=== PATIENT | male | born 1935 | race Caucasian/White ===

== ENCOUNTER → 2019-10-15 11:13 | Outpatient (CLI) | payer OTHER, SELFPAY ==
[2019-10-15 12:52] LABS: Hemoglobin A1C% w Est Avg Glu 7.3 % (4.0-6.0)
[2019-10-15 13:29] LABS: Free T3, Triiodothyronine Free 3.44 pg/mL (2.77-5.27); Free T4, Direct Thyroxine 1.31 ng/dL (0.78-2.19)
[2019-10-15 13:43] LABS: Thyroid Stimulating Hormone 1.59 uIU/mL (0.47-4.68)
[2019-10-15 14:38] LABS: Alanine Aminotransferase 33 IU/L (<50); Albumin 4.5 g/dL (3.5-5.0); Albumin Globulin Ratio 1.5 (1.0-2.8); Alkaline Phosphatase 76 U/L (38-126); Aspartate Aminotransferase 42 IU/L (17-59); BUN Creatinine Ratio 21.1 (6-22); Bilirubin Total 1.1 mg/dL (0.2-1.3); Blood Urea Nitrogen 19 mg/dL (9-20); Calcium 9.8 mg/dL (8.4-10.2); Carbon Dioxide 25 mmol/L (22-32); Chloride 99 mmol/L (98-107); Cholesterol 120 mg/dL (140-199); Estimated Glomerular Filt Rate > 60.0 mL/min (>60); Glucose 141 mg/dL (80-110); HDL Cholesterol 23 mg/dL (40-60); HEMOLYSIS < 15 (0-50); LDL Cholesterol Calculated 60 mg/dL (<100); Potassium 4.5 mmol/L (3.4-5.1); Sodium 137 mmol/L (137-145); Total Protein 7.5 g/dL (6.3-8.2); Triglycerides 185 mg/dL (35-150)
[2019-10-15 15:07] LABS: Prostate Specific Antigen 4.59 ng/mL (0.10-4.00)
== END ==
PROVIDERS: PCP Nurse Practitioner; Referring Provider Nurse Practitioner; Visit Provider Nurse Practitioner
DX: Z12.5 Encounter for screening for malignant neoplasm of prostate (principal); E11.69 Type 2 diabetes mellitus with other specified complication; E11.9 Type 2 diabetes mellitus without complications; E78.5 Hyperlipidemia, unspecified; I10 Essential (primary) hypertension; R32 Unspecified urinary incontinence; Z79.899 Other long term (current) drug therapy
CPT/HCPCS: 36415; 80053; 80061; 83036; 84153; 84439; 84443; 84481

== ENCOUNTER 2019-10-20 13:26 | Inpatient (IN) | payer OTHER, SELFPAY ==
[2019-10-20] VITALS (9 sets, daily range): BP systolic 108–144; BP diastolic 58–72; PULSE 78–92; RESP 12–24; TEMP 36.4–36.9; O2SAT 94–99; BMI 26.4
--- NOTE | 2019-10-20 | DI.ECHO.S_ITS ---
[facility] +---------+ : : [address] : : : : [id number] : : : : Phone: [phone] Echocardiogram Report + + :Name: MANSOOR FREEDMAN Study Date: 10/21/2019 Height: 71 in : :[facility] Weight: 190 lb : : Gender: Male BSA: 2.1 m2 : :: 1935 Age: 84 yrs BP: 136/69 mmHg: :Reason For Study: SHORTNESS OF BREATH : :Ordering Physician: Zari : :Hospitalist Performed By: LRF : :Referring: CHELLY SAN : + + Interpretation Summary The left ventricle is normal in size. The ejection fraction is estimated to be 60-65%. In some of the apical views there appears to be distal inferior septum and distal inferior wall hypokinesis. No systolic anterior motion of the mitral valve. The right ventricle is normal in size and function. There is mild aortic regurgitation. Procedure: A two-dimensional transthoracic echocardiogram with color flow and Doppler was performed. The study quality was technically adequate. There is no prior echocardiogram noted for this patient. The patient was in normal sinus rhythm during the exam. Left Ventricle: The left ventricle is normal in size. Left ventricular wall thickness is mildly increased. There is mild asymmetric left ventricular hypertrophy. There is no echo evidence for significant left ventricular outflow tract obstruction. A false chord is noted (normal variant). The ejection fraction is estimated to be 60-65%. In some of the apical views there appears to be distal inferior septum and distal inferior wall hypokinesis. Diastolic parameters suggest a relaxation abnormality of the left ventricle, consistent with probable normal filling pressures. Right Ventricle: The right ventricle is normal in size and function. Atria: Both atria are normal in size. There is no Doppler evidence for an interatrial shunt. The thickening of interatrial septum suggests lipomatous hypertrophy. Mitral Valve: There is mild mitral annular calcification. No systolic anterior motion of the mitral valve. There is no mitral valve stenosis. There is trace mitral regurgitation. Aortic Valve: The aortic valve is trileaflet. The aortic valve opens well. There is mild aortic valve sclerosis. There is no aortic valve stenosis. There is mild aortic regurgitation. Tricuspid Valve: The tricuspid valve is normal in structure and function. Pulmonary artery pressures cannot be estimated because of the lack of a measurable TR jet velocity. There is a trace or physiologic amount of tricuspid regurgitation. Pulmonic Valve: The pulmonic valve is not well seen, but is grossly normal. There is mild pulmonic regurgitation. Great Vessels: The aortic root is normal size. The ascending aorta is at the upper limits of normal in size. The IVC is of normal diameter and collapses greater than 50% with a sniff. This suggests a low right atrial pressure of 3 mm Hg. Pericardium/ Pleura There is no pericardial effusion. MMode/2D Measurements & Calculations LVIDd: 3.8 cm LVOT diam: 2.3 cm LVIDs: 2.4 cm Ao root diam: 3.2 cm FS: 37.4 % asc Aorta Diam: 3.5 cm EPSS: 0.82 cm Ao Arch Diam (Prox Trans): 2.5 cm IVSd: 1.2 cm LVPWd: 1.0 cm LV colvin. diameter/BSA (cm/m^2): 1.9 LV sys. diameter/BSA (cm/m^2): 1.2 LA A2 area: 18.5 cm2 RA long axis: 4.7 cm LA A4 area: 16.4 cm2 RA area: 15.9 cm2 LA length (vol): 4.8 cm RA vol: 45.5 ml LA vol: 53.0 ml RA : 22.0 ml/m2 LA vol index: 25.7 ml/m2 IVC diam: 1.9 cm RVD1 (basal): 2.7 cm RV Mid_phl: 2.6 cm TAPSE: 2.0 cm Doppler Measurements & Calculations Ao V2 max: 113.1 cm/sec LVOT Max Hubert: 88.3 cm/sec Ao V2 mean: 76.6 cm/sec LV V1 max P.1 mmHg Ao max P.1 mmHg LV V1 VTI: 18.3 cm Ao mean P.6 mmHg JAJA(I,D): 3.2 cm2 Ao V2 VTI: 23.1 cm JAJA(V,D): 3.2 cm2 sev ratio: 0.79 JAJA indexed to BSA (cm^2/m^2): 1.6 MV E max hubert: 50.2 cm/sec PA V2 max: 53.6 cm/sec MV A max hubert: 72.2 cm/sec PA V2 mean: 37.4 cm/sec MV E/A: 0.70 PA mean P.64 mmHg Med Peak E' Hubert: 4.4 cm/sec PA Accel Time: 0.06 sec E/E' med: 11.4 Lat Peak E' Hubert: 7.7 cm/sec E/E' lat: 6.5 E/e' average: 8.9 MV dec time: 0.25 sec MV P1/2t: 72.2 msec MV /2t max hubert: 50.1 cm/sec SV(LVOT): 74.4 ml MVA(P12t): 3.0 cm2 Reading Physician:01:16 PM
--- NOTE | 2019-10-20 13:44 | ED.CHESTPAIN ---
HPI - Chest Pain General Chief Complaint: Chest Pain Stated Complaint: BREATHING PROBLEM,PULSE HIGH,SENT BY DOC Time Seen by Provider: 10/20/19 13:38 Source: patient Mode of arrival: Ambulatory Limitations: no limitations History of Present Illness HPI narrative: 84-year-old male. Prior history of coronary artery disease with stent placement here for evaluation for shortness of breath and also chest heaviness. It appears the symptoms have been going on for the past several days. They appear to be intermittent. 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 Also felt like that his pulse was high today. He states that it went from a heart rate of 70 still heart rate of 90s. He is here with his . Has not tried anything for symptoms prior to arrival Related Data Home Medications Medication Instructions Recorded Confirmed B-complex with vitamin C 1 tab PO DAILY 10/02/19 10/20/19 aspirin 81 mg tablet,delayed 81 mg PO DAILY 10/02/19 10/20/19 release atorvastatin 10 mg tablet 10 mg PO DAILY 10/02/19 10/20/19 cholecalciferol (vitamin D3) 25 1,000 unit PO DAILY 10/02/19 10/20/19 mcg (1,000 unit) capsule diphenhydramine HCl 25 mg capsule 25 mg PO BEDTIME 10/02/19 10/20/19 magnesium citrate 125 mg capsule 250 mg PO DAILY 10/02/19 10/20/19 metformin 1,000 mg tablet 1,000 mg PO BID 10/02/19 10/20/19 nitroglycerin 0.4 mg sublingual 0.4 mg SL Q5M PRN 10/02/19 10/20/19 tablet pantoprazole 40 mg tablet,delayed 40 mg PO DAILY 10/02/19 10/20/19 release Previous Rx's Medication Instructions Recorded diph,pertuss(acel),tet vac(PF) 2 0.5 ml IM ONCE #0.5 ml 10/02/19 Lf-(2.5-5-3-5mcg)-5 Lf/0.5 mL IM syringe lisinopril 5 mg tablet 5 mg PO DAILY #30 tab 10/02/19 varicella-zoster gE-AS01B (PF) 50 0.5 ml IM ONCE #1 each 10/02/19 mcg/0.5 mL IM susp, kit Allergies Allergy/AdvReac Type Severity Reaction Status Date / Time No Known Drug Allergies Allergy Verified 10/02/19 11:32 Review of Systems Constitutional Constitutional: Denies fever(s) and Denies headache(s) ENT Ears, Nose, Mouth, and Throat: Denies headache(s) Cardiovascular Cardiovascular: Reports chest pain, Denies diaphoresis, Reports rapid heart rate, Denies leg edema, Denies palpitations, Reports dyspnea and Reports dyspnea on exertion Respiratory Respiratory: Denies cough, Reports dyspnea and Reports dyspnea on exertion Gastrointestinal Gastrointestinal: Denies abdominal pain, Denies nausea and Denies vomiting Genitourinary Genitourinary: Denies dysuria Musculoskeletal Musculoskeletal: Denies myalgias and Denies arthralgias Integumentary/Breasts Skin/Breast: Denies lesions and Denies rash Neurologic Neurologic: Denies behavioral changes and Denies headache(s) Psychiatric Psychiatric: Denies behavioral changes Endocrine Endocrine: Denies palpitations Hematologic/Lymphatic Hematologic/Lymphatic: Denies easy bleeding and Denies easy bruising Patient History Medical History Allergies (Chronic) Chronic cough (Chronic) Coronary artery disease (Acute) Hearing loss (Chronic) Hyperlipidemia associated with type 2 diabetes mellitus (Acute) Hypertension (Acute) Insomnia (Acute) Obesity (BMI 30.0-34.9) (Acute) Shoulder pain (Chronic) Type 2 diabetes mellitus (Acute) Urinary dribbling (Acute) Vision disorder (Chronic) Surgical History (Updated 10/11/19 @ 20:48 by Liz Naidu) Anesthesia (Resolved) H/O heart artery stent (Acute) Status post anal fissurectomy (Resolved) Family History (Updated 10/11/19 @ 20:53 by Liz Naidu) Father Cancer Brother Diabetes mellitus Brother Diabetes mellitus Son Diabetes mellitus Stroke Social History marital status: Smoking Status: Never smoker alcohol intake: never Smoking Status: Never smoker Exam Initial Vital Signs Initial Vital Signs: Vital Signs Temperature 97.6 F 10/20/19 13:47 Pulse Rate 92 H 10/20/19 13:47 Respiratory Rate 18 10/20/19 13:47 Blood Pressure 130/70 10/20/19 13:47 Pulse Oximetry 97 10/20/19 13:47 Const General: cooperative and comfortable Limitations: mental status not altered Resp Effort & Inspection: normal respiratory effort Auscultation: clear to auscultation bilaterally Cardio Rate: regular rate Rhythm: regular rhythm Pulses: radial pulses present GI Inspection: non-distended Palpation: soft Skin Lesions: no lesions Rashes: no rashes Neuro General: alert, awake and oriented x3 Cognition: normal cognition Speech: speech normal Extrem General: normal to inspection and capillary refill normal Psych Appearance: grossly normal and well kempt Scores GCS Evgeny coma scale eye opening: Spontaneous Evgeny coma scale verbal response: Orientated Evgeny coma scale motor response: Obey commands [place] coma scale total score: 15 HEART Score Heart Score history: Moderately Suspicious Heart Score EKG: Normal Heart Score Age: > or = 65 years old Heart Score risk factors: > 3 risk factors or hx of atherosclerotic disease Heart Score troponin: < or = to normal limit Heart Score Total: 5 Course Orders Ordered: ED Orders 10/20/19 13:40 Complete Blood Count AUTO DIFF Stat Comprehensive Metabolic Panel Stat Lipase Stat NT-proBNP (BNP-Adult 18+) Stat Partial Thromboplastin Time Stat Prothrombin Time INR Stat Troponin I Stat 10/20/19 13:45 XR chest 1V Stat EKG-12 Lead Stat Vital Signs Vital signs: Vital Signs - 8 hr 10/20/19 13:47 10/20/19 14:00 Temperature 97.6 F Pulse Rate 92 H 90 Respiratory Rate 18 12 Blood Pressure [Left Arm] 130/70 114/59 L Pulse Oximetry 97 95 MDM - Chest Pain Lab Data Attestation: I reviewed the patient's lab results. Result diagrams: 10/20/19 13:40 10/20/19 13:40 Labs: Lab Results 10/20/19 10/20/19 10/20/19 Range/Units 13:40 13:40 13:40 WBC 9.2 (4.5-11.0) X10^3/uL RBC 5.35 (4.5-5.9) X10^6/uL Hgb 16.2 (13.5-17.5) g/dL Hct 49.2 (41-53) % MCV 92.0 (80-100) fL MCH 30.4 (26-34) PG MCHC 33.0 (30-36) % RDW 13.5 (11.6-14.8) % Plt Count 243 (150-400) X10^3/uL Neut % (Auto) 73.0 (50-75) % Lymph % (Auto) 14.9 L (25-40) % [place] % (Auto) 8.6 (3-14) % Eos % (Auto) 2.8 (2-4) % Baso % (Auto) 0.7 (0-2) % Neut # (Auto) 6700 (7160-6228) /uL Lymph # (Auto) 1400 (1758-7978) /uL [place] # (Auto) 800 (0-900) /uL Eos # (Auto) 300 (0-450) /uL Baso # (Auto) 100 (0-100) /uL PT 11.4 (10.1-12.7) SECONDS INR 1.0 (0.9-1.3) APTT 37 H (26.4-36.2) SECONDS Sodium 140 (137-145) mmol/L Potassium 4.7 (3.4-5.1) mmol/L Chloride 103 (98-107) mmol/L Carbon Dioxide 26 (22-32) mmol/L BUN 23 H (9-20) mg/dL Creatinine 0.90 (0.66-1.25) mg/dL Estimated GFR > 60.0 (>60) mL/min BUN/Creatinine Ratio 25.6 H (6-22) Glucose 150 H (80-110) mg/dL Calcium 9.8 (8.4-10.2) mg/dL Total Bilirubin 0.6 (0.2-1.3) mg/dL AST 30 (17-59) IU/L ALT 29 (<50) IU/L Alkaline Phosphatase 64 (38-126) U/L Troponin I < 0.012 (0.01-0.034) ng/mL NT-Pro-B Natriuret Pep 93 (<450) pg/mL Total Protein 7.3 (6.3-8.2) g/dL Albumin 4.3 (3.5-5.0) g/dL Globulin 3.0 (1.7-4.1) g/dL Albumin/Globulin Ratio 1.4 (1.0-2.8) Lipase 286 (23-300) U/L Imaging Data Chest x-ray: Attestation: I personally reviewed and interpreted this imaging study as follows: My Impression: No acute pathology ECG Data Attestation: I personally reviewed and interpreted this ECG as follows: Prior ECG tracings: not available for review Interpretation: Sinus rhythm Ventricular rate of 92 Normal axis Normal QRS Normal QTC No ST T wave changes MDM Narrative Medical decision making narrative: Heart score 5, EKG is unremarkable, not having symptoms while sitting in the room however patient does admit that when he exerts himself he does become short of breath and does have chest pressure. Has known coronary artery disease. Was given aspirin in addition to the aspirin he took this morning. Did discuss the case with Dr. nair the hospitalist. Will admit for further evaluation treatment. Discussed the admission with the patient. He expressed understanding and agreement. Discharge Plan Departure Patient Disposition: Admitted as Observation Clinical Impression: Dyspnea on exertion Chest pain Qualifiers: Chest pain type: unspecified Qualified Code(s): R07.9 - Chest pain, unspecified
--- NOTE | 2019-10-20 13:45 | DI.RAD.S_ITS ---
PROCEDURE: XR CHEST 1V INDICATIONS: Chest pain TECHNIQUE: One view of the chest was acquired. COMPARISON: None. FINDINGS: Surgical changes and devices: None. Lungs and pleura: Lungs are clear. No pleural effusions or pneumothorax. Mediastinum: Mediastinal contours appear normal. Heart size is normal. Bones and chest wall: No suspicious bony lesions. Overlying soft tissues appear unremarkable. IMPRESSION: No acute cardiopulmonary process is evident. Dictated by: Tristan Araiza M.D. on 10/20/2019 at 13:49 Approved by: Tristan Araiza M.D. on 10/20/2019 at 13:49
[2019-10-20 13:49] LABS: Add Manual Diff / Slide Review NO; Basophils Absolute Auto 100 /uL (0-100); Basophils Percent Auto 0.7 % (0-2); Eosinophils Absolute Auto 300 /uL (0-450); Eosinophils Percent Auto 2.8 % (2-4); Hematocrit 49.2 % (41-53); Hemoglobin 16.2 g/dL (13.5-17.5); Lymphocytes Absolute Auto 1400 /uL (1100-4500); Lymphocytes Percent Auto 14.9 % (25-40); Mean Corpuscular Hemoglobin 30.4 PG (26-34); Monocytes Absolute Auto 800 /uL (0-900); Monocytes Percent Auto 8.6 % (3-14); Neutrophils Absolute Auto 6700 /uL (1500-7000); Platelet Count 243 X10^3/uL (150-400); Red Blood Cell Count 5.35 X10^6/uL (4.5-5.9); Red Cell Distribution Width 13.5 % (11.6-14.8); White Blood Cell Count 9.2 X10^3/uL (4.5-11.0)
[2019-10-20 14:07] LABS: Prothrombin Time 11.4 SECONDS (10.1-12.7)
[2019-10-20 14:10] LABS: PTT Partial Thromboplastin Tim 37 SECONDS (26.4-36.2)
[2019-10-20 14:13] LABS: Alanine Aminotransferase 29 IU/L (<50); Albumin 4.3 g/dL (3.5-5.0); Albumin Globulin Ratio 1.4 (1.0-2.8); Alkaline Phosphatase 64 U/L (38-126); Aspartate Aminotransferase 30 IU/L (17-59); BUN Creatinine Ratio 25.6 (6-22); Bilirubin Total 0.6 mg/dL (0.2-1.3); Blood Urea Nitrogen 23 mg/dL (9-20); Calcium 9.8 mg/dL (8.4-10.2); Carbon Dioxide 26 mmol/L (22-32); Chloride 103 mmol/L (98-107); Estimated Glomerular Filt Rate > 60.0 mL/min (>60); Glucose 150 mg/dL (80-110); Lipase 286 U/L (23-300); Potassium 4.7 mmol/L (3.4-5.1); Sodium 140 mmol/L (137-145); Total Protein 7.3 g/dL (6.3-8.2)
[2019-10-20 14:26] LABS: HEMOLYSIS < 15 (0-50); Troponin I < 0.012 ng/mL (0.01-0.034)
[2019-10-20 14:30] LABS: NT-proBNP (BNP-Adult 18+) 93 pg/mL (<450)
[2019-10-20] MEDS: ASPIRIN 81 MG CHEW TAB 162 MG PO (15:07)
--- NOTE | 2019-10-20 17:23 | P.HP_ITS ---
History of Present Illness History of Present Illness Date Patient Seen: 10/20/19 Chief complaint: BREATHING PROBLEM,PULSE HIGH,SENT BY DOC Narrative: Patient is an 84-year-old male with a history of hypertension, hyperlipidemia, type 2 diabetes, coronary artery disease status post stenting times to 15 years ago who presented to the hospital with a chief complaint of shortness of breath. 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 He and his moved to [facility] from [place], [place] over the past summer. ording to the patient and his they of noted intermittent exertional dyspnea since the summer. He occasionally describes getting chest pressure associated. The symptoms tend to come on when lifting boxes or exerting himself. They last for few minutes are not associated with pain per se although he does get twinges of chest pain like a ?cramp in the chest. The patient was at [employer] on Sunday singing when he developed abrupt onset of shortness of breath. He was somewhat concerned and called his PCP who directed him to the hospital. In the emergency department he had an EKG which was unremarkable, he also had cardiac enzymes which were negative. The patient does describe his angina equivalent which happened 15 years ago. He again was markedly short of breath with diaphoresis. He was placed on a treadmill and ultimately required cardiac stenting. The patient has not had a stress test since that time. He does describe having had a cardiac echo sometime in the past 6 months. The patient denies any orthopnea, no lower extremity edema, no palpitations. He does have a chronic cough. His notes that at times when he gets up he has been dizzy and stumbling which is concerning. The patient denies any diaphoresis or nausea associated with his symptoms. He is admitted to the hospital at this time for evaluation of exertional dyspnea. Patient History Medical History Allergies (Chronic) Chronic cough (Chronic) Coronary artery disease (Acute) Hearing loss (Chronic) Hyperlipidemia associated with type 2 diabetes mellitus (Acute) Hypertension (Acute) Insomnia (Acute) Obesity (BMI 30.0-34.9) (Acute) Shoulder pain (Chronic) Type 2 diabetes mellitus (Acute) Urinary dribbling (Acute) Vision disorder (Chronic) Surgical History Anesthesia (Resolved) H/O heart artery stent (Acute) Status post anal fissurectomy (Resolved) Family & Social History Family History Father Cancer Brother Diabetes mellitus Brother Diabetes mellitus Son Diabetes mellitus Stroke Social History: household members spouse Prior Living Arrangements House Tobacco & Substance use: Smoking Status Never smoker alcohol intake never Meds Home Medications and Allergies Home Medications Medication Instructions Recorded Confirmed Type B-complex with vitamin C 1 tab PO DAILY 10/02/19 10/20/19 History aspirin 81 mg tablet,delayed 81 mg PO DAILY 10/02/19 10/20/19 History release atorvastatin 10 mg tablet 10 mg PO DAILY 10/02/19 10/20/19 History cholecalciferol (vitamin D3) 25 1,000 unit PO DAILY 10/02/19 10/20/19 History mcg (1,000 unit) capsule diph,pertuss(acel),tet vac(PF) 2 0.5 ml IM ONCE #0.5 ml 10/02/19 10/20/19 Rx Lf-(2.5-5-3-5mcg)-5 Lf/0.5 mL IM syringe diphenhydramine HCl 25 mg capsule 25 mg PO BEDTIME 10/02/19 10/20/19 History lisinopril 5 mg tablet 5 mg PO DAILY #30 tab 10/02/19 10/20/19 Rx magnesium citrate 125 mg capsule 250 mg PO DAILY 10/02/19 10/20/19 History metformin 1,000 mg tablet 1,000 mg PO BID 10/02/19 10/20/19 History nitroglycerin 0.4 mg sublingual 0.4 mg SL Q5M PRN 10/02/19 10/20/19 History tablet pantoprazole 40 mg tablet,delayed 40 mg PO DAILY 10/02/19 10/20/19 History release varicella-zoster gE-AS01B (PF) 50 0.5 ml IM ONCE #1 each 10/02/19 10/20/19 Rx mcg/0.5 mL IM susp, kit Allergies Allergy/AdvReac Type Severity Reaction Status Date / Time No Known Drug Allergies Allergy Verified 10/02/19 11:32 Review of Systems Review of Systems Narrative: Chronic cough otherwise review of systems is negative ROS: Yes All systems reviewed with the patient and are negative except as otherwise documented Exam Vital Signs (past 8 hours): - 10/20/19 13:47 10/20/19 14:00 10/20/19 15:00 Temperature 97.6 F Pulse Rate 92 H 90 82 Respiratory Rate 18 12 12 Blood Pressure Blood Pressure [Left Arm] 130/70 114/59 L 122/63 Pulse Oximetry 97 95 97 10/20/19 15:30 10/20/19 16:00 10/20/19 16:50 Temperature 98.4 F Pulse Rate 83 83 78 Respiratory Rate 22 24 18 Blood Pressure 144/72 H Blood Pressure [Left Arm] 121/63 121/62 Pulse Oximetry 94 98 98 10/20/19 16:56 Temperature Pulse Rate 81 Respiratory Rate Blood Pressure 113/58 L Blood Pressure [Left Arm] Pulse Oximetry 99 Oxygen Delivery Method Room Air Oxygen Flow Rate 0 Narrative Exam Narrative: Pleasant elderly male resting comfortably in no obvious distress HEENT: Normocephalic atraumatic, extraocular muscles are intact, oropharynx is clear with moist mucous membranes, neck is supple without adenopathy, there is no appreciable thyromegaly, Lungs: Clear to auscultation Cardiac exam: Regular rate and rhythm normal S1-S2 with a 2/6 systolic ejection murmur, no rubs or gallops Abdomen: Soft nontender nondistended no hepatosplenomegaly noted Extremities: No edema Skin exam: No lesion Neuro exam: Cranial nerves 2-12 are intact, strength is symmetric and equal, sensation is grossly intact, reflexes are brisk and equal, gait is not assessed Psychiatric exam: Patient is awake alert and appropriate, he has no delusions or hallucinations. Objective Labs Result Diagrams: 10/20/19 13:40 10/20/19 13:40 Labs: Laboratory Results - last 24 hr 10/20/19 10/20/19 10/20/19 13:40 13:40 13:40 WBC 9.2 RBC 5.35 Hgb 16.2 Hct 49.2 MCV 92.0 MCH 30.4 MCHC 33.0 RDW 13.5 Plt Count 243 Neut % (Auto) 73.0 Lymph % (Auto) 14.9 L [place] % (Auto) 8.6 Eos % (Auto) 2.8 Baso % (Auto) 0.7 Neut # (Auto) 6700 Lymph # (Auto) 1400 [place] # (Auto) 800 Eos # (Auto) 300 Baso # (Auto) 100 PT 11.4 INR 1.0 APTT 37 H Sodium 140 Potassium 4.7 Chloride 103 Carbon Dioxide 26 BUN 23 H Creatinine 0.90 Estimated GFR > 60.0 BUN/Creatinine Ratio 25.6 H Glucose 150 H Calcium 9.8 Total Bilirubin 0.6 AST 30 ALT 29 Alkaline Phosphatase 64 Troponin I < 0.012 NT-Pro-B Natriuret Pep 93 Total Protein 7.3 Albumin 4.3 Globulin 3.0 Albumin/Globulin Ratio 1.4 Lipase 286 Assessment & Plan Assessment & Plan narrative: Impression 1. 84-year-old male, admitted to the hospital with exertional dyspnea, this is very similar to his prior anginal epis ode that happened before his last stent was placed. Based on his symptomatology it is highly suggestive of unstable angina. The patient had a chest x-ray which was negative. EKG shows sinus rhythm with no acute ST-T changes. And cardiac enzymes initially are negative. The patient does have risk factors to include hypertension and hyperlipidemia, he also has type 2 diabetes. Therefore the pat ient will be brought to the hospital, cardiac enzymes will be obtained, stress testing will be obtained in the morning. Cardiac echo will be obtained as well to evaluate LV function. 2. Hypertension, chronic -patient is on 5 mg of lisinopril, he does describe a chronic cough which may be related to his RICA-inhibitor. Will await echocardiogram results. Will continue RICA-inhibitor for now 3. Type 2 diabetes, -will obtain hemoglobin A1c, hold metformin at this time, continue bolus insulin will resume as an outpatient 4. Hyperlipidemia, chronic -will obtain fasted lipid profile -will continue RICA-inhibitor for 5. DVT prophylaxis Start lovenox 6. GERD: Continue proton 7. Dizziness, confusion at night, discontinue nighttime Benadryl
[2019-10-20] MEDS: ACETAMINOPHEN 325 MG TABLET 650 MG PO (18:55)
[2019-10-20 21:31] LABS: Hemoglobin A1C% w Est Avg Glu 7.4 % (4.0-6.0)
[2019-10-20 21:51] LABS: Troponin I < 0.012 ng/mL (0.01-0.034)
[2019-10-20 21:52] LABS: Cholesterol 125 mg/dL (140-199); HDL Cholesterol 29 mg/dL (40-60); LDL Cholesterol Calculated 58 mg/dL (<100); Triglycerides 190 mg/dL (35-150)
--- NOTE | 2019-10-20 22:39 | PC.NURSE ---
Pt had a little bit of chest cramping sensation, 1.5/10 pain, tolerable. at this time, pt denies chest pain. cont pulse ox, 98%RA. pt independent in room. pt will have stress test tomorrow and echo. will notify on coming RN that day shift needs to call for stress test schedule. pt will be NPO at midnight. Tele NSR. call light in reach.
[2019-10-21 00:20] VITALS: BP 135/72; PULSE 74; RESP 18; TEMP 36.6; O2SAT 96
[2019-10-21 01:36] LABS: Add Manual Diff / Slide Review NO; Basophils Absolute Auto 0 /uL (0-100); Basophils Percent Auto 0.7 % (0-2); Eosinophils Absolute Auto 400 /uL (0-450); Eosinophils Percent Auto 5.4 % (2-4); Hematocrit 45.2 % (41-53); Lymphocytes Absolute Auto 1700 /uL (1100-4500); Lymphocytes Percent Auto 22.8 % (25-40); Mean Corpuscular HGB Conc 33.2 % (30-36); Mean Corpuscular Hemoglobin 30.4 PG (26-34); Mean Corpuscular Volume 91.3 fL (80-100); Monocytes Absolute Auto 800 /uL (0-900); Neutrophils Absolute Auto 4500 /uL (1500-7000); Neutrophils Percent Auto 60.1 % (50-75); Platelet Count 208 X10^3/uL (150-400); Red Blood Cell Count 4.95 X10^6/uL (4.5-5.9); Red Cell Distribution Width 13.3 % (11.6-14.8); White Blood Cell Count 7.5 X10^3/uL (4.5-11.0)
[2019-10-21 01:40] LABS: Blood Urea Nitrogen 23 mg/dL (9-20); Calcium 9.4 mg/dL (8.4-10.2); Carbon Dioxide 32 mmol/L (22-32); Chloride 103 mmol/L (98-107); Estimated Glomerular Filt Rate > 60.0 mL/min (>60); Glucose 133 mg/dL (80-110); HEMOLYSIS < 15 (0-50); Potassium 4.5 mmol/L (3.4-5.1); Sodium 138 mmol/L (137-145)
[2019-10-21 01:51] LABS: Troponin I < 0.012 ng/mL (0.01-0.034)
[2019-10-21 05:30] VITALS: BP 148/82; PULSE 82; RESP 18; TEMP 37.4; O2SAT 98
[2019-10-21 08:00] VITALS: BP 140/73; PULSE 80; RESP 18; TEMP 36.6; O2SAT 97
[2019-10-21] MEDS: NITROGLYCERIN 0.4 MG SL TAB SL (08:24)
[2019-10-21] MEDS: INSULIN ASPART 100 UNIT/ML INSULN PEN SUBCUT ×2 (08:29→12:40)
[2019-10-21] MEDS: ENOXAPARIN 40 MG/0.4 ML SYRINGE SUBCUT ×2 (08:36→14:02)
[2019-10-21] MEDS: DOCUSATE 100 MG CAPSULE PO (08:40)
[2019-10-21] MEDS: ASPIRIN EC 81 MG TABLET PO (08:42)
[2019-10-21] MEDS: ATORVASTATIN 10 MG TABLET PO (08:43)
[2019-10-21] MEDS: PANTOPRAZOLE 40 MG TABLET PO (08:43)
[2019-10-21 08:49] VITALS: BP 136/69
--- NOTE | 2019-10-21 10:58 | CM.DANOTE ---
Addendum entered by April Painter R.N. 10/21/19 13:03: Results of echo in, was consulted with cardiology. Plan is for transfer to [facility] Original Note: DCP: Case received, EMR reviewed met with patient. Introduced self and role. Was able to meet patient, , Leidy, was at bedside. Was able to obtain baseline history and activity information. DCP assessment completed with information currently available. Patient is an 84 year old male who admitted yesterday afternoon to the care of the hospitalist team. [facility] [place]: [place]. Patient came to the hospital via family vehicle secondary to increased shortness of breath. His had noted this when he was in [place]. Patient does have history of coronary artery disease. He is here for cardiac testing. Met with and patient. 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 They moved here to be closer to their daughter. Patient and his have moved over 20 times. He is independent, and alert and oriented. They both reside here in [place]. P: DCP to continue to follow. Patient will be getting an echo today. If he is stable, he should be able to go home. April Painter RN/[employer]
[2019-10-21 12:00] VITALS: BP 132/83; PULSE 77; RESP 18; TEMP 36.7; O2SAT 97
[2019-10-21] MEDS: SODIUM CHLORIDE 0.9% FLUSH 10 ML IV (12:41)
--- NOTE | 2019-10-21 13:23 | P.CONS_ITS ---
History of Present Illness Consult details Date Patient Seen: 10/21/19 Chief complaint: BREATHING PROBLEM,PULSE HIGH,SENT BY DOC Reason for consult: exertional shortness of breath, chest discomfort Narrative: Patient is an 84-year-old male with a history of CAD status post stent to likely mid LAD about 15 years ago as per the patient and his , details not available, done in [place],hypertension, hyperlipidemia, type 2 diabetes, presented to the hospital with a chief complaint of shortness of breath on October 20, 2019.. 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 He and his moved to [employer] from [place], [place] over the past summer. According to the patient and his they of noted intermittent exertional dyspnea since the summer. The patient was at [employer] on Sunday singing when he developed abrupt onset of shortness of breath. he could not finish his singing. He stopped. It was a similar symptoms he had about 15 years ago when he had cor onary artery stent. He was somewhat concerned and called his PCP Next day who directed him to the hospital. Sunday morning he had chest discomfort as well. According to the patient from last couple of months he has been having exertional shortness of breath. when he climbs stairs, he gets clammy and tired as well as chest tightness. Regarding his chest tightness, he was not paying much attention. He is in denial. This morning in the hospital he had chest tightness without any radiation and responded to sublingual nitroglycerin. No fever or productive sputum or PND orthopnea or bleeding or strokelike symptoms or claudicatio. Meds Home Medications and Allergies Home Medications Medication Instructions Recorded Confirmed Type B-complex with vitamin C 1 tab PO DAILY 10/02/19 10/20/19 History aspirin 81 mg tablet,delayed 81 mg PO DAILY 10/02/19 10/20/19 History release atorvastatin 10 mg tablet 10 mg PO DAILY 10/02/19 10/20/19 History cholecalciferol (vitamin D3) 25 1,000 unit PO DAILY 10/02/19 10/20/19 History mcg (1,000 unit) capsule diph,pertuss(acel),tet vac(PF) 2 0.5 ml IM ONCE #0.5 ml 10/02/19 10/20/19 Rx Lf-(2.5-5-3-5mcg)-5 Lf/0.5 mL IM syringe diphenhydramine HCl 25 mg capsule 25 mg PO BEDTIME 10/02/19 10/20/19 History lisinopril 5 mg tablet 5 mg PO DAILY #30 tab 10/02/19 10/20/19 Rx magnesium citrate 125 mg capsule 250 mg PO DAILY 10/02/19 10/20/19 History metformin 1,000 mg tablet 1,000 mg PO BID 10/02/19 10/20/19 History nitroglycerin 0.4 mg sublingual 0.4 mg SL Q5M PRN 10/02/19 10/20/19 History tablet pantoprazole 40 mg tablet,delayed 40 mg PO DAILY 10/02/19 10/20/19 History release varicella-zoster [id number] (PF) 50 0.5 ml IM ONCE #1 each 10/02/19 10/20/19 Rx mcg/0.5 mL IM susp, kit Allergies Allergy/AdvReac Type Severity Reaction Status Date / Time No Known Drug Allergies Allergy Verified 10/02/19 11:32 Review of Systems Review of Systems ROS: Yes All systems reviewed with the patient and are negative except as otherwise documented Exam Vital Signs (past 8 hours): - 10/21/19 05:30 10/21/19 08:00 10/21/19 08:49 Temperature 99.4 F 97.8 F Pulse Rate 82 80 Respiratory Rate 18 18 Blood Pressure 148/82 H 140/73 136/69 Pulse Oximetry 98 97 10/21/19 12:00 Temperature 98.1 F Pulse Rate 77 Respiratory Rate 18 Blood Pressure 132/83 Pulse Oximetry 97 Oxygen Delivery Method Room Air Oxygen Flow Rate 0 Const General: cooperative HENAL Head: contusion and hematoma Eyes Other: No obvious anemia or jaundice Neck Other: no obvious JVD Chest Other: no chest wall tenderness Resp Other: no obvious crepitations or rhonchi Cardio Other: S1-S2 normal, no S3 no S4 soft ejection systolic murmur at the base GI Other: no obvious pulsatile mass or hepatosplenomegaly, abdomen obese Skin Other: no gangrene or ulcer Neuro Other: no obvious motor or sensory deficit Extrem Other: no significant pedal edema Psych Other: alert oriented to time place and person Objective Labs Result Diagrams: 10/21/19 01:18 10/21/19 01:18 Labs: Laboratory Results - last 24 hr 10/20/19 10/20/19 10/20/19 13:40 13:40 13:40 WBC 9.2 RBC 5.35 Hgb 16.2 Hct 49.2 MCV 92.0 MCH 30.4 MCHC 33.0 RDW 13.5 Plt Count 243 Neut % (Auto) 73.0 Lymph % (Auto) 14.9 L [place] % (Auto) 8.6 Eos % (Auto) 2.8 Baso % (Auto) 0.7 Neut # (Auto) 6700 Lymph # (Auto) 1400 [place] # (Auto) 800 Eos # (Auto) 300 Baso # (Auto) 100 PT 11.4 INR 1.0 APTT 37 H Sodium 140 Potassium 4.7 Chloride 103 Carbon Dioxide 26 BUN 23 H Creatinine 0.90 Estimated GFR > 60.0 BUN/Creatinine Ratio 25.6 H Glucose 150 H Hemoglobin A1c Calcium 9.8 Total Bilirubin 0.6 AST 30 ALT 29 Alkaline Phosphatase 64 Troponin I < 0.012 NT-Pro-B Natriuret Pep 93 Total Protein 7.3 Albumin 4.3 Globulin 3.0 Albumin/Globulin Ratio 1.4 Triglycerides Cholesterol LDL Cholesterol, Calc HDL Cholesterol Lipase 286 10/20/19 10/20/19 10/20/19 21:14 21:14 21:14 WBC RBC Hgb Hct MCV MCH MCHC RDW Plt Count Neut % (Auto) Lymph % (Auto) [place] % (Auto) Eos % (Auto) Baso % (Auto) Neut # (Auto) Lymph # (Auto) [place] # (Auto) Eos # (Auto) Baso # (Auto) PT INR APTT Sodium Potassium Chloride Carbon Dioxide BUN Creatinine Estimated GFR BUN/Creatinine Ratio Glucose Hemoglobin A1c 7.4 H Calcium Total Bilirubin AST ALT Alkaline Phosphatase Troponin I < 0.012 NT-Pro-B Natriuret Pep Total Protein Albumin Globulin Albumin/Globulin Ratio Triglycerides 190 H Cholesterol 125 L LDL Cholesterol, Calc 58 HDL Cholesterol 29 L Lipase 10/21/19 10/21/19 10/21/19 01:18 01:18 01:18 WBC 7.5 RBC 4.95 Hgb 15.0 Hct 45.2 MCV 91.3 MCH 30.4 MCHC 33.2 RDW 13.3 Plt Count 208 Neut % (Auto) 60.1 Lymph % (Auto) 22.8 L [place] % (Auto) 11.0 Eos % (Auto) 5.4 H Baso % (Auto) 0.7 Neut # (Auto) 4500 Lymph # (Auto) 1700 [place] # (Auto) 800 Eos # (Auto) 400 Baso # (Auto) 0 PT INR APTT Sodium 138 Potassium 4.5 Chloride 103 Carbon Dioxide 32 BUN 23 H Creatinine 1.00 Estimated GFR > 60.0 BUN/Creatinine Ratio 23.0 H Glucose 133 H Hemoglobin A1c Calcium 9.4 Total Bilirubin AST ALT Alkaline Phosphatase Troponin I < 0.012 NT-Pro-B Natriuret Pep Total Protein Albumin Globulin Albumin/Globulin Ratio Triglycerides Cholesterol LDL Cholesterol, Calc HDL Cholesterol Lipase Assessment & Plan Assessment and plan (1) Unstable angina pectoris: Current visit: Yes Status: Acute (2) Coronary artery disease: Current visit: No Status: Acute (3) Hypertension: Current visit: No Status: Acute (4) Type 2 diabetes mellitus: Current visit: No Status: Acute (5) Dyslipidemia associated with type 2 diabetes mellitus: Current visit: Yes Status: Acute Assessment & Plan narrative: Patient appears to have unstable angina symptoms. He is having recurrent resting chest discomfort. He is having worsening exertional shortness of breath as well as becomes clammy during exertion suggestive of angina equivalent symptoms as well. When he had stent about 15 years ago he had similar symptoms. He is 84 years old with persistent risk factors. The pretest likelihood of worsening and memoryartery disease is high. In the hospital he has ruled out for acute myocardial infarction. Previous EKG showed sinus rhythm with low-voltage complexes in limb leads without any significant ST-T changes. QTC 411 milliseconds. It was done 8:05 AM this morning. On 2-D echo preserved LV function with subtle distal inferior wall and inferior septal hypokinesis without any significant valvular pathology. I had long discussion with the patient and his regarding underlying diagnosis and further workup. Options of stress test versus left heart catheterization discussed. Patient and his decided to undergo left heart catheterization in anticipation of revascularization. Will recommend transferring patient to [facility]. I spoke to my associate Dr. Paul as well as our hospitalist Dr. Grant. I will also recommend patient to be started on anticoagulation along with tolerable doses of beta keisha, high intensity statin and if needed Nitropaste. Dr. Grant will talk to the hospitalist at [facility] and will take care of the transfer. Thanks for the cardiology consult. This note was generated utilizing voice recognition software. While attempts h ave been made to correct mistakes, common errors may occur, including substitution of words that sound phonetically similar to the intended word as well as random substitution errors. Please take this into consideration and use clinical context when necessary.
--- NOTE | 2019-10-21 13:24 | PM.DS.1 ---
History of Present Illness History of Present Illness Chief complaint: BREATHING PROBLEM,PULSE HIGH,SENT BY DOC Narrative: Patient is an 84-year-old male with a history of hypertension, hyperlipidemia, type 2 diabetes, coronary artery disease status post stenting times to 15 years ago who presented to the hospital with a chief complaint of shortness of breath. 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 He and his moved to [facility] from [place], [place] over the past summer. ording to the patient and his they of noted intermittent exertional dyspnea since the summer. He occasionally describes getting chest pressure associated. The symptoms tend to come on when lifting boxes or exerting himself. They last for few minutes are not associated with pain per se although he does get twinges of chest pain like a ?cramp in the chest. The patient was at [employer] on Sunday singing when he developed abrupt onset of shortness of breath. He was somewhat concerned and called his PCP who directed him to the hospital. In the emergency department he had an EKG which was unremarkable, he also had cardiac enzymes which were negative. The patient does describe his angina equivalent which happened 15 years ago. He again was markedly short of breath with diaphoresis. He was placed on a treadmill and ultimately required cardiac stenting. The patient has not had a stress test since that time. He does describe having had a cardiac echo sometime in the past 6 months. The patient denies any orthopnea, no lower extremity edema, no palpitations. He does have a chronic cough. His notes that at times when he gets up he has been dizzy and stumbling which is concerning. The patient denies any diaphoresis or nausea associated with his symptoms. He is admitted to the hospital at this time for evaluation of exertional dyspnea. Discharge Providers Provider Date of admission: 10/20/19 14:52 Discharge Date: 10/21/19 Primary care physician: JENNA Alonso Discharge provider: Ngoc Grant MD Summary Hospital Course Discharge Diagnosis: 1. Unstable angina 2. Hyperlipidemia 3. Hypertension 4 GERD Hospital Course: Patient was admitted to the hospital for evaluation of stable angina. He had no further shortness of breath it however the patient did have some intermittent chest pain at rest. He received 1 sublingual nitroglycerin with improvement of his pain. His cardiac enzymes were negative, repeat EKG was negative. The patient was seen in consultation by Dr. Moreno who recommended transfer to [facility] for cardiac intervention. Patient is currently pain-free denies any chest pain or shortness of breath. Arrangements are underway to be made to transfer him to [facility] for cardiac catheterization Status at Discharge Cognitive/behavioral status at discharge: oriented Functional status at discharge: independent ambulation Overall status at discharge: patient is back to baseline Time Spent with Patient Time spent: Less than 30 minutes Exam Vital Signs (past 8 hours): - 10/21/19 05:30 10/21/19 08:00 10/21/19 08:49 Temperature 99.4 F 97.8 F Pulse Rate 82 80 Respiratory Rate 18 18 Blood Pressure 148/82 H 140/73 136/69 Pulse Oximetry 98 97 10/21/19 12:00 Temperature 98.1 F Pulse Rate 77 Respiratory Rate 18 Blood Pressure 132/83 Pulse Oximetry 97 Oxygen Delivery Method Room Air Oxygen Flow Rate 0 Narrative Exam Narrative: Pleasant gentleman resting comfortably in no obvious distress Lungs: Clear to auscultation Cardiac exam: Regular rate and rhythm normal S1-S2 2/6 systolic ejection murmur Abdomen: Soft nontender nondistended, no hepatosplenomegaly Extremities: No edema Objective Labs Result Diagrams: 10/21/19 01:18 10/21/19 01:18 Labs: Laboratory Results - last 24 hr 10/20/19 10/20/19 10/20/19 13:40 13:40 13:40 WBC 9.2 RBC 5.35 Hgb 16.2 Hct 49.2 MCV 92.0 MCH 30.4 MCHC 33.0 RDW 13.5 Plt Count 243 Neut % (Auto) 73.0 Lymph % (Auto) 14.9 L [place] % (Auto) 8.6 Eos % (Auto) 2.8 Baso % (Auto) 0.7 Neut # (Auto) 6700 Lymph # (Auto) 1400 [place] # (Auto) 800 Eos # (Auto) 300 Baso # (Auto) 100 PT 11.4 INR 1.0 APTT 37 H Sodium 140 Potassium 4.7 Chloride 103 Carbon Dioxide 26 BUN 23 H Creatinine 0.90 Estimated GFR > 60.0 BUN/Creatinine Ratio 25.6 H Glucose 150 H Hemoglobin A1c Calcium 9.8 Total Bilirubin 0.6 AST 30 ALT 29 Alkaline Phosphatase 64 Troponin I < 0.012 NT-Pro-B Natriuret Pep 93 Total Protein 7.3 Albumin 4.3 Globulin 3.0 Albumin/Globulin Ratio 1.4 Triglycerides Cholesterol LDL Cholesterol, Calc HDL Cholesterol Lipase 286 10/20/19 10/20/19 10/20/19 21:14 21:14 21:14 WBC RBC Hgb Hct MCV MCH MCHC RDW Plt Count Neut % (Auto) Lymph % (Auto) [place] % (Auto) Eos % (Auto) Baso % (Auto) Neut # (Auto) Lymph # (Auto) [place] # (Auto) Eos # (Auto) Baso # (Auto) PT INR APTT Sodium Potassium Chloride Carbon Dioxide BUN Creatinine Estimated GFR BUN/Creatinine Ratio Glucose Hemoglobin A1c 7.4 H Calcium Total Bilirubin AST ALT Alkaline Phosphatase Troponin I < 0.012 NT-Pro-B Natriuret Pep Total Protein Albumin Globulin Albumin/Globulin Ratio Triglycerides 190 H Cholesterol 125 L LDL Cholesterol, Calc 58 HDL Cholesterol 29 L Lipase 10/21/19 10/21/19 10/21/19 01:18 01:18 01:18 WBC 7.5 RBC 4.95 Hgb 15.0 Hct 45.2 MCV 91.3 MCH 30.4 MCHC 33.2 RDW 13.3 Plt Count 208 Neut % (Auto) 60.1 Lymph % (Auto) 22.8 L [place] % (Auto) 11.0 Eos % (Auto) 5.4 H Baso % (Auto) 0.7 Neut # (Auto) 4500 Lymph # (Auto) 1700 [place] # (Auto) 800 Eos # (Auto) 400 Baso # (Auto) 0 PT INR APTT Sodium 138 Potassium 4.5 Chloride 103 Carbon Dioxide 32 BUN 23 H Creatinine 1.00 Estimated GFR > 60.0 BUN/Creatinine Ratio 23.0 H Glucose 133 H Hemoglobin A1c Calcium 9.4 Total Bilirubin AST ALT Alkaline Phosphatase Troponin I < 0.012 NT-Pro-B Natriuret Pep Total Protein Albumin Globulin Albumin/Globulin Ratio Triglycerides Cholesterol LDL Cholesterol, Calc HDL Cholesterol Lipase Discharge Plan Discharge Plan Disposition: Xfer Acute Care Hospital Discharge orders & Medications Follow up/Referrals: Yarelis Sidhu ARNP [Primary Care Provider] - Visit Report/Discharge Packet Visit Report Forms: Patient Portal/API, Stroke Signs & Symptoms Discharge Data Primary Care Provider: Yarelis Sidhu Attending Provider: Ngoc Grant Admit Date/Time: 10/20/19 14:52
--- NOTE | 2019-10-21 14:28 | PC.NURSE ---
Discharge: Pt feels ready to d/c home. D/c packet reviewed. Minimal pain, po meds effective. Diet tolerated w/out problems. No new rx. vds w/out diff. Questions answered. Priority load pass given. Pt d/c home via auto w/family.
--- NOTE | 2019-10-21 15:43 | PC.NURSE ---
Cardiac: Episode of chest pressure of a 1-2 when pt seen this am. Ecg obtained and received 1 ntg and the chest pressure resolved. Pain did not radiate anywhere. Tele and ecg were unchenged. made aware. Pt is waiting possible transfer to [facility].
[2019-10-21 15:45] VITALS: BP 118/54; PULSE 81; RESP 18; TEMP 36.4; O2SAT 95
--- NOTE | 2019-10-21 17:18 | PC.NURSE ---
A&OX4. denied any chest pain or SOB. RA 95%. independent in the room. NPO since midnight. pt has an IV on R.FA. tele removed.
== END 2019-10-21 17:17 | disposition short-term general hospital (02) | DRG 303 ==
LOC: ED 14:50 → AC 10-21 08:39
PROVIDERS: Admitting Provider Internal Medicine; Emergency Provider Emergency Medicine; PCP Nurse Practitioner; Referring Provider Emergency Medicine; Visit Provider Internal Medicine
DX: I25.110 Atherosclerotic heart disease of native coronary artery with unstable angina pectoris (principal); I10 Essential (primary) hypertension; K21.9 Gastro-esophageal reflux disease without esophagitis; E78.49 Other hyperlipidemia; E11.9 Type 2 diabetes mellitus without complications; Z79.84 Long term (current) use of oral hypoglycemic drugs
CPT/HCPCS: 36415; 71045; 80048; 80053; 80061; 82962; 83036; 83690; 83880; 84484; 85025; 85610; 85730; 93005; 93306; 94762; 99284; 99285; G0378; J1650

== ENCOUNTER → 2020-02-11 14:21 | Outpatient (CLI) | payer OTHER, SELFPAY ==
[2019-10-20 16:55] VITALS: BMI 26.4
--- NOTE | 2020-02-11 14:23 | DI.RAD.S_ITS ---
PROCEDURE: XR RIBS RT MIN 3V W CXR 1V INDICATIONS: Rib pain after fall TECHNIQUE: 2 views of the right ribs were acquired, along with a single view chest. COMPARISON: [facility], , XR CHEST 1V, 10/20/2019, 13:58. FINDINGS: Surgical changes and devices: None. Bones and chest wall: No acute displaced fractures or dislocations. Possible old lateral right sixth rib fracture. No suspicious bony lesions. Overlying soft tissues appear unremarkable. Lungs and pleura: No pleural effusions or pneumothorax. Lungs appear clear. Mediastinum: Mediastinal contours appear normal. Heart size is normal. IMPRESSION: 1. No acute displaced rib fractures. 2. Suspect old right sixth rib fracture. Dictated by: Santino Shields M.D. on 02/11/2020 at 15:35 Approved by: Santino Shields M.D. on 02/11/2020 at 15:40
== END ==
PROVIDERS: PCP Nurse Practitioner; Referring Provider Nurse Practitioner; Visit Provider Nurse Practitioner
DX: R07.81 Pleurodynia (principal)
CPT/HCPCS: 71101; 71110

== ENCOUNTER → 2020-04-21 12:00 | Outpatient (CLI) | payer OTHER, SELFPAY ==
[2019-10-20 16:55] VITALS: BMI 26.4
--- NOTE | 2020-05-07 17:05 | PM.CARDMON.1 ---
Ladies' [facility] Trimmer Report Referral & Results Date Patient Seen: 04/21/20 Requesting provider: Yarelis Sidhu Indication: Paroxysmal tachycardia Duration of monitoring (days): 7 Diary information: There were 2 patient triggered events and 2 patient diary entries Patient triggered events were associated with (within 45 seconds) sinus rhythm and PVCs. Diary events were associated with sinus rhythm alone Data: Minimum heart rate identified was 71 beats per minute at 02:31 on 04/28/2020 Maximum sinus heart rate was 125 beats per minute at 13:20 on 04/25/2020 Maximum overall heart rate was 187 beats per minute at 20:52 on 04/26/2020 during a 15 beat run of SVT Less than 1% of identified beats were either ventricular or supraventricular ectopic in origin Patient with 8 SVT runs the longest being the fast is which is listed above as 15 beats Impression: Patient with mild supraventricular dysrhythmia as above. Clinical correlation suggested
== END ==
PROVIDERS: PCP Nurse Practitioner; Referring Provider Nurse Practitioner; Visit Provider Nurse Practitioner
DX: I47.9 Paroxysmal tachycardia, unspecified (principal)
CPT/HCPCS: 0296T; 0298T

== ENCOUNTER → 2020-05-11 09:00 | Outpatient (CLI) | payer OTHER, SELFPAY ==
[2019-10-20 16:55] VITALS: BMI 26.4
[2020-05-11 09:09] LABS: Bacteria Urine None Seen; RBC Urine None Seen (0-5/HPF); WBC Urine None Seen (0-5/HPF)
[2020-05-11 09:28] LABS: Appearance Urine UA CLEAR; Bilirubin Urine UA NEGATIVE (NEGATIVE); Color Urine UA YELLOW; Glucose Urine UA 3+ g/dL (Negative); Ketones Urine UA NEGATIVE (NEGATIVE); Leukocyte Esterase Urine UA NEGATIVE (NEGATIVE); Nitrite Urine UA NEGATIVE (Negative); Occult Blood Urine UA TRACE-LYSED (Negative); Protein Urine UA NEGATIVE (Negative); Specific Gravity Urine UA 1.015 (1.000-1.035); Urobilinogen Urine UA 0.2 E.U./dL (0.2)
[2020-05-11 09:32] LABS: Culture Indicated Urine Cult Not Indicated; Urine Comments Microscopic Normal
[2020-05-11 09:35] LABS: Creatinine Urine Random 106.4 mg/dL
[2020-05-11 09:45] LABS: Alanine Aminotransferase 24 IU/L (<50); Albumin Globulin Ratio 1.7 (1.0-2.8); Alkaline Phosphatase 73 U/L (38-126); Aspartate Aminotransferase 23 IU/L (17-59); Bilirubin Total 0.6 mg/dL (0.2-1.3); Blood Urea Nitrogen 21 mg/dL (9-20); Calcium 9.2 mg/dL (8.4-10.2); Carbon Dioxide 26 mmol/L (22-32); Chloride 103 mmol/L (98-107); Cholesterol 117 mg/dL (140-199); Estimated Glomerular Filt Rate > 60.0 mL/min (>60); Globulin 2.4 g/dL (1.7-4.1); Glucose 136 mg/dL (80-110); HDL Cholesterol 34 mg/dL (40-60); HEMOLYSIS < 15 (0-50); LDL Cholesterol Calculated 46 mg/dL (<100); Potassium 4.5 mmol/L (3.4-5.1); Sodium 137 mmol/L (137-145); Total Protein 6.4 g/dL (6.3-8.2); Triglycerides 184 mg/dL (35-150)
[2020-05-11 09:55] LABS: Free T4, Direct Thyroxine 1.27 ng/dL (0.78-2.19)
[2020-05-11 09:58] LABS: Microalbumi Creatinin Ratio Ur 5.6 ug/mg CR (<30); Microalbumin Urine Random < 0.6 mg/dL (0-1.6)
[2020-05-11 10:32] LABS: Prostate Specific Antigen 3.41 ng/mL (0.10-4.00)
== END ==
PROVIDERS: PCP Nurse Practitioner; Referring Provider Specialist; Visit Provider Nurse Practitioner
DX: E11.69 Type 2 diabetes mellitus with other specified complication (principal); E11.9 Type 2 diabetes mellitus without complications; E66.9 Obesity, unspecified; E78.5 Hyperlipidemia, unspecified; G47.00 Insomnia, unspecified; I10 Essential (primary) hypertension; I25.10 Atherosclerotic heart disease of native coronary artery without angina pectoris; Z79.899 Other long term (current) drug therapy; R81 Glycosuria; N13.8 Other obstructive and reflux uropathy; N40.1 Benign prostatic hyperplasia with lower urinary tract symptoms
CPT/HCPCS: 36415; 80053; 80061; 81001; 82043; 82570; 83036; 84153; 84439; 84443

== ENCOUNTER 2020-05-20 23:24 | Emergency (ER) | payer OTHER, SELFPAY ==
[2019-10-20 16:55] VITALS: BMI 26.4
[2020-05-20 23:29] VITALS: BP 126/75; PULSE 111; O2SAT 96
[2020-05-20 23:30] VITALS: BP 126/72; PULSE 105; O2SAT 97
[2020-05-20 23:38] VITALS: BP 126/72; PULSE 101; RESP 19; TEMP 37.1; O2SAT 96; BMI 29.3
--- NOTE | 2020-05-20 23:40 | DI.RAD.S_ITS ---
PROCEDURE: XR CHEST 1V INDICATIONS: palpitations TECHNIQUE: One view of the chest was acquired. COMPARISON: [facility], CR, XR CHEST 1V, 10/20/2019, 13:58. FINDINGS: Surgical changes and devices: None. Lungs and pleura: Lungs are clear. No pleural effusions or pneumothorax. Mediastinum: Mediastinal contours appear normal. Heart size is normal. Bones and chest wall: No suspicious bony lesions. Overlying soft tissues appear unremarkable. IMPRESSION: No acute cardiopulmonary disease process. Dictated by: Amber Tierney MD, PhD on 05/21/2020 at 8:44 Approved by: Amber Tierney MD, PhD on 05/21/2020 at 8:45
[2020-05-20] MEDS: METOPROLOL IR 25 MG TABLET 50 MG PO (23:48)
[2020-05-21] VITALS: BP 98/61; PULSE 97; RESP 17; O2SAT 95
[2020-05-21 00:02] LABS: Add Manual Diff / Slide Review NO; Basophils Absolute Auto 100 /uL (0-100); Basophils Percent Auto 0.6 % (0-2); Eosinophils Absolute Auto 200 /uL (0-450); Eosinophils Percent Auto 2.3 % (2-4); Hematocrit 46.9 % (41-53); Hemoglobin 15.3 g/dL (13.5-17.5); Lymphocytes Absolute Auto 1600 /uL (1100-4500); Lymphocytes Percent Auto 14.8 % (25-40); Mean Corpuscular HGB Conc 32.6 % (30-36); Mean Corpuscular Volume 92.1 fL (80-100); Monocytes Absolute Auto 900 /uL (0-900); Monocytes Percent Auto 8.6 % (3-14); Neutrophils Absolute Auto 7800 /uL (1500-7000); Neutrophils Percent Auto 73.7 % (50-75); Platelet Count 234 X10^3/uL (150-400); Red Cell Distribution Width 13.9 % (11.6-14.8); White Blood Cell Count 10.5 X10^3/uL (4.5-11.0)
[2020-05-21 00:11] LABS: Alanine Aminotransferase 23 IU/L (<50); Albumin 3.8 g/dL (3.5-5.0); Albumin Globulin Ratio 1.5 (1.0-2.8); Alkaline Phosphatase 69 U/L (38-126); Aspartate Aminotransferase 28 IU/L (17-59); BUN Creatinine Ratio 22.9 (6-22); Bilirubin Total 0.5 mg/dL (0.2-1.3); Blood Urea Nitrogen 25 mg/dL (9-20); Calcium 9.2 mg/dL (8.4-10.2); Carbon Dioxide 23 mmol/L (22-32); Chloride 107 mmol/L (98-107); Estimated Glomerular Filt Rate > 60.0 mL/min (>60); Globulin 2.6 g/dL (1.7-4.1); Glucose 169 mg/dL (80-110); HEMOLYSIS 29 (0-50); Potassium 4.3 mmol/L (3.4-5.1); Sodium 138 mmol/L (137-145); Total Protein 6.4 g/dL (6.3-8.2)
[2020-05-21 00:15] VITALS: BP 109/60; PULSE 93; O2SAT 94
[2020-05-21 00:23] LABS: NT-proBNP (BNP-Adult 18+) 215 pg/mL (<450); Troponin I < 0.012 ng/mL (0.01-0.034)
--- NOTE | 2020-05-21 00:28 | ED_ITS ---
HPI - Arrhythmia/Palpitations General Chief Complaint: Arrhythmia/Palpitations Stated Complaint: states he is in afib Time Seen by Provider: 05/20/20 23:30 Source: patient and family Mode of arrival: Ambulatory Limitations: no limitations History of Present Illness HPI narrative: 85-year-old gentleman with the history of [place] post stent placement, hypertension, hyperlipidemia, type 2 diabetes and recent elevated hea rt rate and palpitations presents with increased concern for palpitations and heart rate intermittently in the 120-140 range through the course of the day. He describes no fever, cough, chills, chest pain, shortness of breath, orthopnea, abdominal pain, diarrhea, vomiting, lower extremity edema. He notes that the palpitations are associated with a fluttering feeling in his throat but no dyspnea, diaphoresis or specific chest pain. Last week he had a youth nutritional monitor on and has not had results back from that study. He is currently on metoprolol 25 mg b.i.d.. Was seen by his primary care physician Dr. Sidhu on April 06 with similar complaints. Related Data Home Medications Medication Instructions Recorded Confirmed B-complex with vitamin C 1 tab PO DAILY 10/02/19 05/18/20 aspirin 81 mg tablet,delayed 81 mg PO DAILY 10/02/19 05/18/20 release cholecalciferol (vitamin D3) 25 1,000 unit PO DAILY 10/02/19 05/18/20 mcg (1,000 unit) capsule magnesium citrate 125 mg capsule 250 mg PO DAILY 10/02/19 05/18/20 metformin 1,000 mg tablet 1,000 mg PO BID 10/02/19 05/18/20 nitroglycerin 0.4 mg sublingual 0.4 mg SL Q5M PRN 10/02/19 05/18/20 tablet atorvastatin 40 mg tablet 40 mg PO QPM 10/28/19 05/18/20 calcium carbonate-vitamin D3 250 1 tab PO DAILY 10/28/19 05/18/20 mg-125 unit tablet fluticasone propionate 50 1 spray NASAL DAILY 10/28/19 05/18/20 mcg/actuation nasal spray,suspension vitamin b12 See Rx Instructions .ROUTE .COMPLEX 10/28/19 05/18/20 empagliflozin 10 mg tablet 10 mg PO QAM 11/27/19 05/18/20 metoprolol tartrate 25 mg tablet 25 mg PO BID tab 02/11/20 05/18/20 Previous Rx's Medication Instructions Recorded fexofenadine 180 mg tablet 180 mg PO DAILY #90 tab 10/28/19 clopidogrel 75 mg tablet 75 mg PO DAILY #14 tab 11/19/19 baclofen 10 mg tablet 10 mg PO BID PRN #30 tab 02/11/20 alfuzosin 10 mg tablet,extended 10 mg PO DAILY #90 tab 03/29/20 release 24 hr Allergies Allergy/AdvReac Type Severity Reaction Status Date / Time lisinopril AdvReac Intermediate cough Verified 05/18/20 11:30 atorvastatin AdvReac Verified 05/18/20 11:30 Review of Systems Review of Systems Narrative: Remainder of review of systems including constitutional, ENT, cardiovascular, respiratory, GI, , musculoskeletal, skin, neurologic and psychiatric systems reviewed and are unremarkable except as noted in HPI. Patient History Medical History Allergies (Chronic) Aspirin long-term use (Acute) Balance problem (Acute) BPH (benign prostatic hyperplasia) (Acute) BPH loc w urin obs/LUTS (Acute) Chronic cough (Chronic) Coronary artery disease (Chronic) Diverticular disease (Acute) Erectile dysfunction (Acute) Glucose found in urine on examination (Acute) Hearing loss (Chronic) Heart attack (Acute) High prostate specific antigen (PSA) (Acute) History of elevated PSA (Acute) Hyperlipidemia associated with type 2 diabetes mellitus (Acute) Hypertension (Chronic) Insomnia (Acute) Obesity (BMI 30.0-34.9) (Chronic) Other [place] [facility] (current[facility] drug therapy (Acute) Shoulder pain (Chronic) Tachycardia, paroxysmal (Acute) Type 2 diabetes mellitus (Chronic) Urinary dribbling (Acute) Vision disorder (Chronic) Surgical History Anesthesia (Resolved) H/O heart artery stent (Acute) S/P PTCA (percutaneous transluminal coronary angioplasty) (Acute) Status post anal fissurectomy (Resolved) Family History Father Cancer Brother Diabetes mellitus Brother Diabetes mellitus Son Diabetes mellitus Stroke Social History marital status: household members: spouse Smoking Status: Never smoker alcohol intake: never Smoking Status: Never smoker Substance Use Type: does not use Exam Narrative Exam Narrative: General: Healthy appearing, in no acute distress. Able to give a complete and coherent history. Well-nourished well-developed HEENT: Moist mucous membranes, normal sclera with reactive pupils, Neck: No JVD, supple Respiratory: Lungs are clear to auscultation, no wheezing no rales no rhonchi. Full and symmetrical air movement Cardiac: Regular rate and rhythm with mild tachycardia in the 110 range, no murmurs no bruits Abdomen: Soft nontender good bowel tones, no flank pain Skin: Warm and dry, no rashes Neurologic: Grossly neurologically intact with no obvious asymmetries or a bnormalities Extremities: No trauma, well perfused, no lower extremity edema Psych: Cooperative, appropriate insight and affect Initial Vital Signs Initial Vital Signs: Vital Signs Pulse Rate 111 H 05/20/20 23:29 Blood Pressure 126/75 05/20/20 23:29 Pulse Oximetry 96 05/20/20 23:29 Course Orders Ordered: ED Orders 05/20/20 23:40 XR chest 1V Stat Urinalysis and Microscopic Stat 05/20/20 23:45 Complete Blood Count AUTO DIFF Stat Comprehensive Metabolic Panel Stat D Dimer Stat Magnesium Stat NT-proBNP (BNP-Adult 18+) Stat Thyroid Stimulating Hormone Stat Troponin I Stat Discontinued Medications Metoprolol Tartrate (Lopressor) 50 mg PO NOW ONE Stop: 05/20/20 23:40 Last Admin: 05/20/20 23:48 Dose: 50 mg Documented by: AC Vital Signs Vital signs: Vital Signs - 8 hr 05/20/20 23:29 05/20/20 23:30 05/20/20 23:38 Temperature 98.8 F Pulse Rate 111 H 105 H 101 H Respiratory Rate 19 Blood Pressure 126/75 126/72 126/72 Pulse Oximetry 96 97 96 05/21/20 00:00 05/21/20 00:15 05/21/20 00:30 Temperature Pulse Rate 97 H 93 H 93 H Respiratory Rate 17 17 Blood Pressure 98/61 109/60 109/65 Pulse Oximetry 95 94 94 05/21/20 00:45 Temperature Pulse Rate 87 Respiratory Rate 17 Blood Pressure 98/58 L Pulse Oximetry 95 MDM - Arrhythmia/Palpitations Medical Records Attestation: I reviewed the patient's medical records. Lab Data Attestation: I reviewed the patient's lab results. Result diagrams: 05/20/20 23:45 05/20/20 23:45 Labs: Lab Results 05/20/20 05/20/20 05/20/20 Range/Units 23:45 23:45 23:45 WBC 10.5 (4.5-11.0) X10^3/uL RBC 5.10 (4.5-5.9) X10^6/uL Hgb 15.3 (13.5-17.5) g/dL Hct 46.9 (41-53) % MCV 92.1 (80-100) fL MCH 30.0 (26-34) PG MCHC 32.6 (30-36) % RDW 13.9 (11.6-14.8) % Plt Count 234 (150-400) X10^3/uL Neut % (Auto) 73.7 (50-75) % Lymph % (Auto) 14.8 L (25-40) % [place] % (Auto) 8.6 (3-14) % Eos % (Auto) 2.3 (2-4) % Baso % (Auto) 0.6 (0-2) % Neut # (Auto) 7800 H (8260-0957) /uL Lymph # (Auto) 1600 (1575-4887) /uL [place] # (Auto) 900 (0-900) /uL Eos # (Auto) 200 (0-450) /uL Baso # (Auto) 100 (0-100) /uL D-Dimer < 200 (<230) ng/mL Sodium 138 (137-145) mmol/L Potassium 4.3 (3.4-5.1) mmol/L Chloride 107 (98-107) mmol/L Carbon Dioxide 23 (22-32) mmol/L BUN 25 H (9-20) mg/dL Creatinine 1.09 (0.66-1.25) mg/dL Estimated GFR > 60.0 (>60) mL/min BUN/Creatinine Ratio 22.9 H (6-22) Glucose 169 H (80-110) mg/dL Calcium 9.2 (8.4-10.2) mg/dL Magnesium (1.6-2.3) mg/dL Total Bilirubin 0.5 (0.2-1.3) mg/dL AST 28 (17-59) IU/L ALT 23 (<50) IU/L Alkaline Phosphatase 69 (38-126) U/L Troponin I (0.01-0.034) ng/mL NT-Pro-B Natriuret Pep (<450) pg/mL Total Protein 6.4 (6.3-8.2) g/dL Albumin 3.8 (3.5-5.0) g/dL Globulin 2.6 (1.7-4.1) g/dL Albumin/Globulin Ratio 1.5 (1.0-2.8) 05/20/20 Range/Units 23:45 WBC (4.5-11.0) X10^3/uL RBC (4.5-5.9) X10^6/uL Hgb (13.5-17.5) g/dL Hct (41-53) % MCV (80-100) fL MCH (26-34) PG MCHC (30-36) % RDW (11.6-14.8) % Plt Count (150-400) X10^3/uL Neut % (Auto) (50-75) % Lymph % (Auto) (25-40) % [place] % (Auto) (3-14) % Eos % (Auto) (2-4) % Baso % (Auto) (0-2) % Neut # (Auto) (9196-3315) /uL Lymph # (Auto) (3213-9814) /uL [place] # (Auto) (0-900) /uL Eos # (Auto) (0-450) /uL Baso # (Auto) (0-100) /uL D-Dimer (<230) ng/mL Sodium (137-145) mmol/L Potassium (3.4-5.1) mmol/L Chloride (98-107) mmol/L Carbon Dioxide (22-32) mmol/L BUN (9-20) mg/dL Creatinine (0.66-1.25) mg/dL Estimated GFR (>60) mL/min BUN/Creatinine Ratio (6-22) Glucose (80-110) mg/dL Calcium (8.4-10.2) mg/dL Magnesium 2.0 (1.6-2.3) mg/dL Total Bilirubin (0.2-1.3) mg/dL AST (17-59) IU/L ALT (<50) IU/L Alkaline Phosphatase (38-126) U/L Troponin I < 0.012 (0.01-0.034) ng/mL NT-Pro-B Natriuret Pep 215 (<450) pg/mL Total Protein (6.3-8.2) g/dL Albumin (3.5-5.0) g/dL Globulin (1.7-4.1) g/dL Albumin/Globulin Ratio (1.0-2.8) Imaging Data Chest x-ray: Attestation: I personally reviewed and interpreted this imaging study as follows: My Impression: No acute changes. Similar to comparison chest x-ray ECG Data Attestation: I personally reviewed and interpreted this ECG as follows: Interpretation: Sinus rhythm at a rate of 101. Normal axis, normal intervals No acute ischemic changes MDM Narrative Medical decision making narrative: 85-year-old gentleman comes in with complaints of palpitations and a sense of shakiness and unease but no dyspnea diaphoresis or actual chest pain with the episodes. They last minutes only. They have been worse over the course of the day. He has been checking blood pressure and heart rate and was finding heart rates in the 120-140 range. In using his wrist cuff to compare his monitor with our telemetry monitors the numbers are actually quite desperate. His blood pressure is significantly lower than our blood pressure cuff is getting and his heart rate is higher. Suggested that he replaced the battery in the heart rate monitor and reviewed how to check his own pulse to correlate actual pulse reading with the number the monitor is giving him. On arrival he was given 50 mg of oral metoprolol, he was due for his usual dose of 25, and his heart rate has continued to trend down and he is feeling well. Labs are reviewed no evidence of acute coronary syndrome electrolyte abnormalities, infection, pulmonary embolism, hyperthyroidism or other explanation for his tachycardia. Will ask him to increase his metoprolol from 25 b.i.d. to 25 in the morning 50 at night and follow-up with Dr. sidhu later next week Discharge Plan Departure Patient Disposition: Home Clinical Impression: Tachycardia Instructions: Arrhythmias Activity Restrictions/Additional Instructions: Thank you for coming in today Your workup today was very reassuring. You were given an extra 25 mg of metoprolol this evening to help with that your heart rate. Your blood work does not suggest infection, acute heart attack or other findings to explain the rapid heart rate. Your chest x-ray is normal I would recommend that you try replacing the batteries in your wrist blood pressure cuff as the readings are getting from that monitor are significantly different than and simultaneous readings from our telemetry and blood pressure monitors in the emergency department. I am going to suggest that we increased her metoprolol slightly. You currently take 25 mg morning and night. Please increase this to 25 mg in the morning and 50 mg (2 pills) at night After an ER visit and medication change it makes sense to follow-up with your [facility] physician. Please call Dr. Sidhu's office in asked to schedule an ER visit follow-up for later next week. If you have recurrent episodes of palpitations, sweating, shortness of breath o r other symptoms that concern you please feel free to return to the emergency room and I am happy to re-evaluate. Prescriptions: No Action clopidogrel [Plavix] 75 mg tablet 75 mg PO DAILY Qty: 14 RF: 0 Jardiance 10 mg tablet 10 mg PO QAM RF: 0 atorvastatin 40 mg tablet 40 mg PO QPM RF: 0 fexofenadine [Wilma Allergy] 180 mg tablet 180 mg PO DAILY Qty: 90 RF: 0 fluticasone propionate [Allergy Relief (fluticasone)] 50 mcg/actuation spray,suspension 1 spray NASAL DAILY RF: 0 calcium carbonate-vitamin D3 [[place] Calcium-Vit D3] 250-125 mg-unit tablet 1 tab PO DAILY RF: 0 vitamin b12 See Rx Instructions .ROUTE .COMPLEX RF: 0 B-complex with vitamin C [Super B Complex-Vitamin C] Tablet 1 tab PO DAILY RF: 0 magnesium citrate 125 mg capsule 250 mg PO DAILY RF: 0 cholecalciferol (vitamin D3) 1,000 unit capsule 1,000 unit PO DAILY RF: 0 aspirin 81 mg tablet,delayed release (DR/EC) 81 mg PO DAILY RF: 0 Hold Instructions: while on ketorolac metformin 1,000 mg tablet 1,000 mg PO BID RF: 0 nitroglycerin 0.4 mg tablet, sublingual 0.4 mg SL Q5M PRN (Reason: Chest Pain) RF: 0 metoprolol tartrate 25 mg tablet 25 mg PO BID RF: 0 baclofen 10 mg tablet 10 mg PO BID PRN (Reason: back spasms) Qty: 30 RF: 1 alfuzosin 10 mg tablet extended release 24 hr 10 mg PO DAILY Qty: 90 RF: 3 Referrals: Yarelis Sidhu ARNP [Primary Care Provider] -
[2020-05-21 00:30] VITALS: BP 109/65; PULSE 93; RESP 17; O2SAT 94
[2020-05-21 00:32] LABS: D Dimer < 200 ng/mL (<230)
[2020-05-21 00:45] VITALS: BP 98/58; PULSE 87; RESP 17; O2SAT 95
[2020-05-21 01:00] VITALS: BP 104/62; PULSE 85; RESP 21; O2SAT 95
== END 2020-05-21 01:44 | disposition home or self-care (01) ==
PROVIDERS: Emergency Provider Emergency Medicine; PCP Nurse Practitioner
DX: R00.0 Tachycardia, unspecified (principal); Z95.5 Presence of coronary angioplasty implant and graft; I10 Essential (primary) hypertension; E78.5 Hyperlipidemia, unspecified; E11.9 Type 2 diabetes mellitus without complications
CPT/HCPCS: 36415; 71045; 80053; 83735; 83880; 84443; 84484; 85025; 85379; 93005; 99284

== ENCOUNTER → 2020-09-16 11:28 | Outpatient (CLI) | payer OTHER, SELFPAY ==
[2019-10-20 16:55] VITALS: BMI 26.4
[2020-09-16 13:06] LABS: Hemoglobin A1C% w Est Avg Glu 6.8 % (4.0-6.0)
[2020-09-16 13:19] LABS: Alanine Aminotransferase 28 IU/L (<50); Albumin 3.8 g/dL (3.5-5.0); Albumin Globulin Ratio 1.5 (1.0-2.8); Alkaline Phosphatase 77 U/L (38-126); Aspartate Aminotransferase 25 IU/L (17-59); BUN Creatinine Ratio 19.5 (6-22); Bilirubin Total 0.9 mg/dL (0.2-1.3); Blood Urea Nitrogen 16 mg/dL (9-20); Calcium 9.1 mg/dL (8.4-10.2); Carbon Dioxide 25 mmol/L (22-32); Chloride 106 mmol/L (98-107); Cholesterol 92 mg/dL (140-199); Estimated Glomerular Filt Rate > 60.0 mL/min (>60); Globulin 2.5 g/dL (1.7-4.1); Glucose 130 mg/dL (80-110); HDL Cholesterol 28 mg/dL (40-60); HEMOLYSIS < 15 (0-50); LDL Cholesterol Calculated 36 mg/dL (<100); Potassium 4.2 mmol/L (3.4-5.1); Sodium 136 mmol/L (137-145); Total Protein 6.3 g/dL (6.3-8.2); Triglycerides 138 mg/dL (35-150)
== END ==
PROVIDERS: PCP Nurse Practitioner; Referring Provider Internal Medicine Cardiovascular Disease; Visit Provider Internal Medicine Cardiovascular Disease
DX: I25.10 Atherosclerotic heart disease of native coronary artery without angina pectoris (principal); E11.9 Type 2 diabetes mellitus without complications
CPT/HCPCS: 36415; 80053; 80061; 83036

== ENCOUNTER 2020-11-09 17:57 | Inpatient (IN) | payer OTHER, SELFPAY ==
[2020-10-20 12:30] VITALS: BMI 26.4
[2020-11-09 18:03] VITALS: BP 138/61; PULSE 72; RESP 20; TEMP 36.6; O2SAT 99
--- NOTE | 2020-11-09 18:08 | DI.CT.S_ITS ---
PROCEDURE: CT STROKE INDICATIONS: facial droop 1 week ago, NON-TPA CANDIDATE TECHNIQUE: Noncontrast 4.5 mm thick angled axial sections acquired from the foramen magnum to the vertex, with coronal reformats. For radiation dose reduction, the following was used: automated exposure control, adjustment of mA and/or kV according to patient size. COMPARISON: None. FINDINGS: Image quality: Excellent. CSF spaces: Basal cisterns are patent. No extra-axial fluid collections. The ventricles are symmetric in size and shape. Brain: No intracranial bleeds or masses. There is cerebral volume loss for age, with resultant ventricular and sulcal prominence. There are periventricular and deep white matter chronic small vessel ischemic changes. There is intracranial internal carotid artery atherosclerosis. Skull and face: Calvarium and visualized facial bones appear intact, without suspicious lesions. Sinuses: Visualized sinuses and mastoids are clear. IMPRESSION: No acute intracranial process. This study fulfills neurological imaging criteria for inclusion or exclusion of acute stroke therapies based on available published neurological guidelines. Dictated by: Orion De La Cruz M.D. on 11/09/2020 at 18:49 Approved by: Orion De La Cruz M.D. on 11/09/2020 at 18:51
--- NOTE | 2020-11-09 18:09 | DI.CT.S_ITS ---
PROCEDURE: CT ANGIO HEAD AND NECK INDICATIONS: facial droop 1 week ago TECHNIQUE: After the administration of intravenous contrast, 1 mm thick sections acquired from the aortic arch through the [place] of [place]. Post-contrast 4.5 mm thick sections then re-acquired from the foramen magnum to the vertex. 3-dimensional gfyvxuc-uslaoxkxm-vjveevbgwa (MIP) and/or volume rendering reformats were acquired of the central intracranial vasculature and neck separately. COMPARISON: None. FINDINGS: Image quality: Excellent. BRAIN: CSF spaces: Ventricles are normal in size and shape. Basal cisterns are patent. No extra-axial fluid collections. Brain: No midline shift. No intracranial bleeds or masses. Banda-white matter interface appears intact. Skull and face: Calvarium and facial bones appear intact, without suspicious lesions. Orbits appear normal. Sinuses: Sinuses and mastoids are clear. HEAD CT ANGIOGRAPHY: Anterior circulation: Intracranial internal carotid arteries are normal in size and flow. The flow within the paired anterior cerebral arteries is normal and symmetric. The flow within the middle cerebral arteries is normal and symmetric. The anterior communicating artery is seen. No aneurysms are seen. Posterior circulation: Visualized portions of the vertebral arteries demonstrate normal caliber, and join to form a normal appearing basilar artery. Flow within the posterior cerebral arteries is normal and symmetric. No aneurysms are seen. NECK CT ANGIOGRAPHY: Carotid system: The great vessels demonstrate a conventional anatomy as they arise from the aortic arch. The origins of the common carotid arteries appear patent. The common carotid arteries demonstrate normal caliber and courses. Minimal bilateral carotid atherosclerosis. The bifurcation regions are both widely patent. The internal carotid arteries demonstrate normal calibers and courses. Posterior circulation: The origins of the vertebral arteries both appear widely patent. The more superior extracranial portions of both vertebral arteries also demonstrate normal courses and calibers. They join to form a normal appearing basilar artery. Soft tissues: Visualized neck soft tissues demonstrate no suspicious abnormalities. Bones: No suspicious bony lesions. Visualized cervical spine appears normally aligned. IMPRESSION: No focal intracranial stenosis or occlusion No hemodynamically significant (>50%) ICA stenosis Any quantitative measurements of stenosis were performed using NASCET criteria. Dictated by: Orion De La Cruz M.D. on 11/09/2020 at 19:43 Approved by: Orion De La Cruz M.D. on 11/09/2020 at 19:46
[2020-11-09 18:37] LABS: Add Manual Diff / Slide Review NO; Basophils Absolute Auto 0 /uL (0-100); Basophils Percent Auto 0.6 % (0-2); Eosinophils Absolute Auto 200 /uL (0-450); Eosinophils Percent Auto 3.8 % (2-4); Hematocrit 45.6 % (41-53); Lymphocytes Absolute Auto 1300 /uL (1100-4500); Lymphocytes Percent Auto 20.9 % (25-40); Mean Corpuscular HGB Conc 32.9 % (30-36); Mean Corpuscular Hemoglobin 30.5 PG (26-34); Mean Corpuscular Volume 92.7 fL (80-100); Monocytes Absolute Auto 600 /uL (0-900); Monocytes Percent Auto 9.8 % (3-14); Neutrophils Absolute Auto 4200 /uL (1500-7000); Neutrophils Percent Auto 64.9 % (50-75); Platelet Count 190 X10^3/uL (150-400); Red Blood Cell Count 4.92 X10^6/uL (4.5-5.9); Red Cell Distribution Width 13.7 % (11.6-14.8); White Blood Cell Count 6.4 X10^3/uL (4.5-11.0)
[2020-11-09 18:54] LABS: Prothrombin Time 11.6 SECONDS (10.1-12.7)
[2020-11-09 18:57] LABS: PTT Partial Thromboplastin Tim 38 SECONDS (26.4-36.2)
[2020-11-09 18:59] LABS: Alanine Aminotransferase 39 IU/L (<50); Albumin 3.9 g/dL (3.5-5.0); Albumin Globulin Ratio 1.8 (1.0-2.8); Alkaline Phosphatase 61 U/L (38-126); Aspartate Aminotransferase 33 IU/L (17-59); BUN Creatinine Ratio 18.5 (6-22); Bilirubin Total 0.7 mg/dL (0.2-1.3); Blood Urea Nitrogen 20 mg/dL (9-20); Calcium 9.1 mg/dL (8.4-10.2); Carbon Dioxide 25 mmol/L (22-32); Chloride 103 mmol/L (98-107); Creatine Kinase 149 U/L (55-170); Estimated Glomerular Filt Rate > 60.0 mL/min (>60); Globulin 2.2 g/dL (1.7-4.1); Glucose 117 mg/dL (80-110); Potassium 4.3 mmol/L (3.4-5.1); Sodium 135 mmol/L (137-145); Total Protein 6.1 g/dL (6.3-8.2)
[2020-11-09 19:11] LABS: Troponin I < 0.012 ng/mL (0.01-0.034)
[2020-11-09 19:14] LABS: CKMB % Relative Index 2.4 % (1.5-5.0); Creatine Kinase MB 3.52 ng/mL (<2.37); HEMOLYSIS 27 (0-50)
--- NOTE | 2020-11-09 22:37 | ED.NEUROSD ---
HPI - Neuro Symptoms/Deficit General Chief Complaint: Neuro Symptoms/Deficit Stated Complaint: sent for TIA Time Seen by Provider: 11/09/20 18:08 Source: patient Mode of arrival: Ambulatory Limitations: no limitations History of Present Illness HPI Narrative: Patient is a 85-year-old male who is here with his for evaluation of concern for TIA. It appears that for the past several weeks and especially over the past week he has had multiple episodes that his waist describes as the patient being clumsy. They have been moving to a new home and so they have been packing and they have noticed that he has dropped many objects which his states that he normally does not do. The patient states that he does feel somewhat clumsy with his left hand. There has also been times where he is confused. His states he is lost where his keys and wall at our and other objects. I also think that he is slurring his words. All these events happened individually and also sometimes together. Before this started these events he has never had anything like this in the past. He has been taking all his medications as directed. Here in the emergency department he denies any symptoms in his states that he is at baseline. Does have a history of at least 1 episode of atrial fibrillation. He is on metoprolol. He is not on anticoagulation. He is a kep-ejoygio-dhzyuevxu diabetic. Also history of hypertension and coronary artery disease. On Anticoagulants: No Related Data Home Medications Medication Instructions Recorded Confirmed B-complex with vitamin C 1 tab PO DAILY 10/02/19 06/24/20 aspirin 81 mg tablet,delayed 81 mg PO DAILY 10/02/19 06/24/20 release cholecalciferol (vitamin D3) 25 1,000 unit PO DAILY 10/02/19 06/24/20 mcg (1,000 unit) capsule magnesium citrate 125 mg capsule 250 mg PO DAILY 10/02/19 06/24/20 metformin 1,000 mg tablet 1,000 mg PO BID 10/02/19 06/24/20 nitroglycerin 0.4 mg sublingual 0.4 mg SL Q5M PRN 10/02/19 06/24/20 tablet atorvastatin 40 mg tablet 40 mg PO QPM 10/28/19 06/24/20 calcium carbonate-vitamin D3 250 1 tab PO DAILY 10/28/19 06/24/20 mg-125 unit tablet fluticasone propionate 50 1 spray NASAL DAILY 10/28/19 06/24/20 mcg/actuation nasal spray,suspension vitamin b12 See Rx Instructions .ROUTE .COMPLEX 10/28/19 06/24/20 empagliflozin 10 mg tablet 10 mg PO QAM 11/27/19 06/24/20 lactobacillus combination no.9 4 4,000 mmu cells PO DAILY 06/24/20 06/24/20 billion cell capsule metoprolol tartrate 25 mg tablet 25 mg PO BID tab 06/24/20 06/24/20 Previous Rx's Medication Instructions Recorded fexofenadine 180 mg tablet 180 mg PO DAILY #90 tab 10/28/19 clopidogrel 75 mg tablet 75 mg PO DAILY #14 tab 11/19/19 baclofen 10 mg tablet 10 mg PO BID PRN #30 tab 02/11/20 alfuzosin 10 mg tablet,extended 10 mg PO DAILY #90 tab 03/29/20 release 24 hr lactobacillus combination no.9 4 4,000 mmu cells PO DAILY #90 cap 06/24/20 billion cell capsule Allergies Allergy/AdvReac Type Severity Reaction Status Date / Time lisinopril AdvReac Intermediate cough Verified 05/18/20 11:30 atorvastatin AdvReac Verified 05/18/20 11:30 Review of Systems Constitutional Constitutional: Denies chills, Denies fatigue, Denies fever(s), Denies headache(s) and Denies weakness Eyes Eyes: Denies change in vision ENT Ears, Nose, Mouth, and Throat: Denies vertigo, Denies dizziness, Denies headache(s), Reports disequilibrium and Denies sore throat Cardiovascular Cardiovascular: Denies chest pain and Denies dyspnea Respiratory Respiratory: Denies dyspnea Gastrointestinal Gastrointestinal: Denies abdominal pain, Denies nausea and Denies vomiting Genitourinary Genitourinary: Denies dysuria Genitourinary: Denies dysuria Musculoskeletal Musculoskeletal: Denies abnormal gait, Denies arthralgias, Denies myalgias, Denies numbness and Denies tingling Integumentary/Breasts Skin/Breast: Denies lesions and Denies rash Neurologic Neurologic: Reports abnormal speech, Denies abnormal gait, Reports confusion, Denies vertigo, Denies dizziness, Denies headache(s), Reports lack of coordination, Denies numbness, Denies tingling, Reports disequilibrium and Denies weakness Psychiatric Psychiatric: Reports confusion Endocrine Endocrine: Denies fatigue Hematologic/Lymphatic Hematologic/Lymphatic: Denies easy bleeding and Denies easy bruising On Anticoagulants: No Allergic/Immunologic Allergic/Immunologic: Denies urticaria Patient History Medical History Allergies Aspirin long-term use Balance problem BPH (benign prostatic hyperplasia) BPH loc w urin obs/LUTS BPH w urinary obs/LUTS Chest pain Chronic cough Coronary artery disease Diverticular disease Dyspnea on exertion Erectile dysfunction Fall Glucose found in urine on examination Hearing loss Heart attack High prostate specific antigen (PSA) History of elevated PSA Hyperlipidemia associated with type 2 diabetes mellitus Hypertension Insomnia Muscle spasm of back Obesity (BMI 30.0-34.9) Other meterman (current) drug therapy Rib pain on right side Shoulder pain Strain of muscle and tendon of back wall of thorax, initial encounter Tachycardia, paroxysmal Type 2 diabetes mellitus Unstable angina pectoris Urinary dribbling Vision disorder Surgical History Anesthesia H/O heart artery stent S/P PTCA (percutaneous transluminal coronary angioplasty) Status post anal fissurectomy Family History Father Cancer Brother Diabetes mellitus Brother Diabetes mellitus Son Diabetes mellitus Stroke Social History marital status: household members: spouse Smoking Status: Never smoker alcohol intake: never Smoking Status: Never smoker Substance Use Type: does not use Exam Initial Vital Signs Initial Vital Signs: Vital Signs Temperature 97.8 F 11/09/20 18:03 Pulse Rate 72 11/09/20 18:03 Respiratory Rate 20 11/09/20 18:03 Blood Pressure 138/61 11/09/20 18:03 Pulse Oximetry 99 11/09/20 18:03 Const General: cooperative, comfortable and well developed Limitations: mental status not altered [facility] Head: normal to inspection and normocephalic Eyes General: appearance normal, both eyes and all related structures Pupils: PERRL EOM: EOM intact bilaterally Resp Effort & Inspection: normal respiratory effort Auscultation: clear to auscultation bilaterally Cardio Rate: regular rate Rhythm: regular rhythm GI Inspection: non-distended Palpation: soft and No tender Skin Lesions: no lesions Rashes: no rashes Neuro General: patient alert, patient awake and patient oriented x3 Cranial Nerves: CN's II-XI intact bilaterally Cognition: normal cognition Speech: speech normal Gait: normal gait Motor: muscle tone normal throughout Sensory Exam: no sensory deficits noted Coordination: swmved-hd-[id number] test normal Extrem General: normal to inspection, capillary refill normal and No edema Psych Appearance: grossly normal and well kempt Scores ABCD2 Age >= 60 years: yes Initial BP. Either SBP >= 140 or DBP >= 90.: no Clinical features of the TIA: speech disturbance without weakness Duration of symptoms: 10-59 minutes History of diabetes: yes ABCD2 Score: 4 GCS Evgeny coma scale eye opening: Spontaneous [place] coma scale verbal response: Orientated [place] coma scale motor response: Obey commands Evgeny coma scale total score: 15 NIH Stroke Scale Level of Conciousness: Alert, keenly responsive Ask month/age: Answers both questions correctly. Open/close eyes, close hand: Performs both tasks correctly Best gaze horizontal: Normal Visual salcido: No visual loss Facial palsy: Normal symetrical movement Left arm drift: No drift for full 10 sec Right arm drift: No drift for full 10 sec Left leg drift: No drift for full 5 sec Right leg drift: No drift for full 5 sec Limb ataxia: Absent Sensory on face/arms/legs: Normal, no sensory loss Best language: No aphasia, normal Dysarthria: Normal Extinction or inattention: No abnormality Total NIH Stroke scale score: 0 Course Orders Ordered: ED Orders 11/09/20 18:08 CT Stroke Stat EKG-12 Lead Stat 11/09/20 18:09 CT angio head and neck Stat 11/09/20 18:30 Complete Blood Count AUTO DIFF Stat Comprehensive Metabolic Panel Stat Partial Thromboplastin Time Stat Prothrombin Time INR Stat Troponin & CK Cardiac Panel Stat 11/09/20 22:45 Urinalysis and Microscopic Stat Urine Drug Screen, Rapid Stat Sodium Chloride (Normal Saline 0.9%) 1,000 mls @ 150 mls/hr IV CONT DOUGLAS Last Admin: 11/09/20 20:28 Dose: Not Given Documented by: CSIEDLE Discontinued Medications Aspirin (Aspirin 81 Mg Chew Tab) 324 mg PO NOW ONE Stop: 11/09/20 23:22 Vital Signs Vital signs: Vital Signs - 8 hr 11/09/20 18:03 Temperature 97.8 F Pulse Rate 72 Respiratory Rate 20 Blood Pressure 138/61 Pulse Oximetry 99 MDM - Neuro Symptoms/Deficit Lab Data Result diagrams: 11/09/20 18:30 11/09/20 18:30 Labs: Lab Results 11/09/20 11/09/20 11/09/20 Range/Units 18:30 18:30 18:30 WBC 6.4 (4.5-11.0) X10^3/uL RBC 4.92 (4.5-5.9) X10^6/uL Hgb 15.0 (13.5-17.5) g/dL Hct 45.6 (41-53) % MCV 92.7 (80-100) fL MCH 30.5 (26-34) PG MCHC 32.9 (30-36) % RDW 13.7 (11.6-14.8) % Plt Count 190 (150-400) X10^3/uL Neut % (Auto) 64.9 (50-75) % Lymph % (Auto) 20.9 L (25-40) % Saunders % (Auto) 9.8 (3-14) % Eos % (Auto) 3.8 (2-4) % Baso % (Auto) 0.6 (0-2) % Neut # (Auto) 4200 (4545-5383) /uL Lymph # (Auto) 1300 (2624-9740) /uL Saunders # (Auto) 600 (0-900) /uL Eos # (Auto) 200 (0-450) /uL Baso # (Auto) 0 (0-100) /uL PT 11.6 (10.1-12.7) SECONDS INR 1.0 (0.9-1.3) APTT 38 H (26.4-36.2) SECONDS Sodium 135 L (137-145) mmol/L Potassium 4.3 (3.4-5.1) mmol/L Chloride 103 (98-107) mmol/L Carbon Dioxide 25 (22-32) mmol/L BUN 20 (9-20) mg/dL Creatinine 1.08 (0.66-1.25) mg/dL Estimated GFR > 60.0 (>60) mL/min BUN/Creatinine Ratio 18.5 (6-22) Glucose 117 H (80-110) mg/dL Calcium 9.1 (8.4-10.2) mg/dL Total Bilirubin 0.7 (0.2-1.3) mg/dL AST 33 (17-59) IU/L ALT 39 (<50) IU/L Alkaline Phosphatase 61 (38-126) U/L Total Creatine Kinase 149 (55-170) U/L CK-MB (CK-2) 3.52 H (<2.37) ng/mL CK-MB (CK-2) Rel Index 2.4 (1.5-5.0) % Troponin I < 0.012 (0.01-0.034) ng/mL Total Protein 6.1 L (6.3-8.2) g/dL Albumin 3.9 (3.5-5.0) g/dL Globulin 2.2 (1.7-4.1) g/dL Albumin/Globulin Ratio 1.8 (1.0-2.8) Urine Color Urine Appearance Urine pH (4.5-8.0) Ur Specific [place] (1.000-1.035) Urine Protein (Negative) Urine Glucose (UA) (Negative) g/dL Urine Ketones (NEGATIVE) Urine Occult Blood (Negative) Urine Nitrate (Negative) Urine Bilirubin (NEGATIVE) Urine Urobilinogen (0.2) E.U./dL Ur Leukocyte Esterase (NEGATIVE) Urine RBC (0-5/HPF) Urine WBC (0-5/HPF) Urine Bacteria (None) Ur Culture Indicated? U Opiates 300ng/mL cut (Negative) Ur Oxycodone Screen (Negative) Urine Methadone Screen (Negative) Ur Barbiturates Screen (Negative) U Tricyclic Antidepress (Negative) Ur Phencyclidine Scrn (Negative) Ur Amphetamines Screen (Negative) U Methamphetamines Scrn (Negative) Ur MDMA Scrn (Ecstasy) (Negative) U Benzodiazepines Scrn (Negative) Urine Cocaine Screen (Negative) U Marijuana (THC) Screen (Negative) 11/09/20 11/09/20 Range/Units 22:45 22:45 WBC (4.5-11.0) X10^3/uL RBC (4.5-5.9) X10^6/uL Hgb (13.5-17.5) g/dL Hct (41-53) % MCV (80-100) fL MCH (26-34) PG MCHC (30-36) % RDW (11.6-14.8) % Plt Count (150-400) X10^3/uL Neut % (Auto) (50-75) % Lymph % (Auto) (25-40) % Saunders % (Auto) (3-14) % Eos % (Auto) (2-4) % Baso % (Auto) (0-2) % Neut # (Auto) (3296-5844) /uL Lymph # (Auto) (0171-7540) /uL Saunders # (Auto) (0-900) /uL Eos # (Auto) (0-450) /uL Baso # (Auto) (0-100) /uL PT (10.1-12.7) SECONDS INR (0.9-1.3) APTT (26.4-36.2) SECONDS Sodium (137-145) mmol/L Potassium (3.4-5.1) mmol/L Chloride (98-107) mmol/L Carbon Dioxide (22-32) mmol/L BUN (9-20) mg/dL Creatinine (0.66-1.25) mg/dL Estimated GFR (>60) mL/min BUN/Creatinine Ratio (6-22) Glucose (80-110) mg/dL Calcium (8.4-10.2) mg/dL Total Bilirubin (0.2-1.3) mg/dL AST (17-59) IU/L ALT (<50) IU/L Alkaline Phosphatase (38-126) U/L Total Creatine Kinase (55-170) U/L CK-MB (CK-2) (<2.37) ng/mL CK-MB (CK-2) Rel Index (1.5-5.0) % Troponin I (0.01-0.034) ng/mL Total Protein (6.3-8.2) g/dL Albumin (3.5-5.0) g/dL Globulin (1.7-4.1) g/dL Albumin/Globulin Ratio (1.0-2.8) Urine Color Yellow Urine Appearance Clear Urine pH 5.0 (4.5-8.0) Ur Specific [place] 1.010 (1.000-1.035) Urine Protein Negative (Negative) Urine Glucose (UA) Trace H (Negative) g/dL Urine Ketones Negative (NEGATIVE) Urine Occult Blood Trace-lysed (Negative) Urine Nitrate Negative (Negative) Urine Bilirubin Negative (NEGATIVE) Urine Urobilinogen 0.2 (0.2) E.U./dL Ur Leukocyte Esterase Negative (NEGATIVE) Urine RBC None seen (0-5/HPF) Urine WBC None seen (0-5/HPF) Urine Bacteria None seen (None) Ur Culture Indicated? Cult not indicated U Opiates 300ng/mL cut Negative (Negative) Ur Oxycodone Screen Negative (Negative) Urine Methadone Screen Negative (Negative) Ur Barbiturates Screen Negative (Negative) U Tricyclic Antidepress Negative (Negative) Ur Phencyclidine Scrn Negative (Negative) Ur Amphetamines Screen Negative (Negative) U Methamphetamines Scrn Negative (Negative) Ur MDMA Scrn (Ecstasy) Negative (Negative) U Benzodiazepines Scrn Negative (Negative) Urine Cocaine Screen Negative (Negative) U Marijuana (THC) Screen Negative (Negative) Imaging Data CT scan - head: Radiologist's Impression: [address] [id number] Scan ReportSigned Patient: Gio Bosch JMR#: [id number]: [id number]:[id number]/Sex: 85 / MDate of Service: 11/09/20Loc: EDAccession Number: [id number] Procedure: CT Stroke Ordering Provider: Heidi Patricia D.O. PROCEDURE: CT STROKE INDICATIONS: facial droop 1 week ago, NON-TPA CANDIDATE TECHNIQUE: Noncontrast 4.5 mm thick angled axial sections acquired from the foramen magnum to the vertex, with coronal reformats. For radiation dose reduction, the following was used: automated exposure control, adjustment of mA and/or kV according to patient size. COMPARISON: None. FINDINGS: Image quality: Excellent. CSF spaces: Basal cisterns are patent. No extra-axial fluid collections. The ventricles are symmetric in size and shape. Brain: No intracranial bleeds or masses. There is cerebral volume loss for age, with resultant ventricular and sulcal prominence. There are periventricular and deep white matter chronic small vessel ischemic changes. There is intracranial internal carotid artery atherosclerosis. Skull and face: Calvarium and visualized facial bones appear intact, without suspicious lesions. Sinuses: Visualized sinuses and mastoids are clear. IMPRESSION: No acute intracranial process. This study fulfills neurological imaging criteria for inclusion or exclusion of acute stroke therapies based on available published neurological guidelines. Dictated by: Orion De La Cruz M.D. on 11/09/2020 at 18:49 Approved by: Orion De La Cruz M.D. on 11/09/2020 at 18:51 CTA - brain/neck: Radiologist's Impression: [address] [id number] Scan ReportSigned Patient: Gio Bosch R#: [id number]: [id number]:[id number]/Sex: 85 / MDate of Service: 11/09/20Loc: EDAccession Number: [id number] Procedure: CT angio head and neck Ordering Provider: Heidi Patricia D.O. PROCEDURE: CT ANGIO HEAD AND NECK INDICATIONS: facial droop 1 week ago TECHNIQUE: After the administration of intravenous contrast, 1 mm thick sections acquired from the aortic arch through the [place] of [place]. Post-contrast 4.5 mm thick sections then re-acquired from the foramen magnum to the vertex. 3-dimensional lunjtfq-tawmxlshi-qzycjfcclg (MIP) and/or volume rendering reformats were acquired of the central intracranial vasculature and neck separately. COMPARISON: None. FINDINGS: Image quality: Excellent. BRAIN: CSF spaces: Ventricles are normal in size and shape. Basal cisterns are patent. No extra-axial fluid collections. Brain: No midline shift. No intracranial bleeds or masses. Banda-white matter interface appears intact. Skull and face: Calvarium and facial bones appear intact, without suspicious lesions. Orbits appear normal. Sinuses: Sinuses and mastoids are clear. HEAD CT ANGIOGRAPHY: Anterior circulation: Intracranial internal carotid arteries are normal in size and flow. The flow within the paired anterior cerebral arteries is normal and symmetric. The flow within the middle cerebral arteries is normal and symmetric. The anterior communicating artery is seen. No aneurysms are seen. Posterior circulation: Visualized portions of the vertebral arteries demonstrate normal caliber, and join to form a normal appearing basilar artery. Flow within the posterior cerebral arteries is normal and symmetric. No aneurysms are seen. NECK CT ANGIOGRAPHY: Carotid system: The great vessels demonstrate a conventional anatomy as they arise from the aortic arch. The origins of the common carotid arteries appear patent. The common carotid arteries demonstrate normal caliber and courses. Minimal bilateral carotid atherosclerosis. The bifurcation regions are both widely patent. The internal carotid arteries demonstrate normal calibers and courses. Posterior circulation: The origins of the vertebral arteries both appear widely patent. The more superior extracranial portions of both vertebral arteries also demonstrate normal courses and calibers. They join to form a normal appearing basilar artery. Soft tissues: Visualized neck soft tissues demonstrate no suspicious abnormalities. Bones: No suspicious bony lesions. Visualized cervical spine appears normally aligned. IMPRESSION: No focal intracranial stenosis or occlusion No hemodynamically significant (>50%) ICA stenosis Any quantitative measurements of stenosis were performed using NASCET criteria. Dictated by: Orion De La Cruz M.D. on 11/09/2020 at 19:43 Approved by: Orion De La Cruz M.D. on 11/09/2020 at 19:46 ECG Data Attestation: I personally reviewed and interpreted this ECG as follows: Prior ECG tracings: not available for review Interpretation: Sinus rhythm Ventricular rate is 65 Normal axis Normal QRS Normal QTC No ST T wave changes MDM Narrative Medical decision making narrative: Patient has had off and on/stuttering symptoms for at least the past week which seems to been worsening according to his was at bedside and his daughter and son-in-law who were on the phone. His thinks he is at baseline here in the emergency department. His daughter thinks that he potentially slurring some of his words. I do not appreciate any slurring of words. His NIH score is 0. His EKG is unremarkable. His blood pressure is controlled however he does have a ABCD2 score of 4 given his history and presenting symptoms. His head CT was unremarkable. Labs are unremarkable. Discussed with him and his regarding TIA/CVA. Plan to be is to admit him for observation for continued TIA workup. Discussed the case with AYLEEN Poole the [facility] provider who will admit for further evaluation and treatment. Discharge Plan Departure Patient Disposition: Admitted as Observation Clinical Impression: Transient cerebral ischemia Admit Date/Time: 11/09/20 23:23 Admit Provider: Zulma Poole
[2020-11-09 22:58] LABS: Bacteria Urine None Seen; RBC Urine None Seen (0-5/HPF); WBC Urine None Seen (0-5/HPF)
[2020-11-09 23:06] LABS: UR Morphine/Opiate cutoff 300 Negative (Negative); Ur Creatinine 20 (Normal); Ur Specific Gravity 1.015 (Normal); Urine Amphetamines Negative (Negative); Urine Barbiturates Negative (Negative); Urine Benzodiazepines Negative (Negative); Urine Cocaine Negative (Negative); Urine MDMA Negative (Negative); Urine Methadone Negative (Negative); Urine Methamphetamines Negative (Negative); Urine Oxycodone Negative (Negative); Urine Phencyclidine Negative (Negative); Urine Tetrahydrocannabinol Negative (Negative); Urine Tricyclic Antidepressant Negative (Negative); Urine pH 5 (Normal)
[2020-11-09 23:14] LABS: Appearance Urine UA CLEAR; Bilirubin Urine UA NEGATIVE (NEGATIVE); Color Urine UA YELLOW; Glucose Urine UA TRACE g/dL (Negative); Ketones Urine UA NEGATIVE (NEGATIVE); Leukocyte Esterase Urine UA NEGATIVE (NEGATIVE); Nitrite Urine UA NEGATIVE (Negative); Occult Blood Urine UA TRACE-LYSED (Negative); Protein Urine UA NEGATIVE (Negative); Urobilinogen Urine UA 0.2 E.U./dL (0.2)
[2020-11-09 23:15] LABS: Culture Indicated Urine Cult Not Indicated
[2020-11-09] MEDS: ASPIRIN 81 MG CHEW TAB 324 MG PO (23:28)
[2020-11-10] VITALS (10 sets, daily range): BP systolic 116–151; BP diastolic 65–86; PULSE 63–79; RESP 16–20; TEMP 35.9–36.9; O2SAT 95–98; BMI 26.2
[2020-11-10 00:04] LABS: COVID19 -Nasal RAPID Negative (Negative)
--- NOTE | 2020-11-10 00:06 | PM.HP.1 ---
History of Present Illness History of Present Illness Date Patient Seen: 11/10/20 Time Patient Seen: 00:06 Chief complaint: sent for TIA Narrative: Patient is a 85-year-old male who is here with his for evaluation of concern for TIA. It appears that for the past several weeks and especially over the past week he has had multiple episodes that his waist describes as the patient being clumsy. They have been moving to a new home and so they have been packing and they have noticed that he has dropped many objects which his states that he normally does not do. The patient states that he does feel somewhat clumsy with his left hand. There has also been times where he is confused. His states he is lost where his keys and wall at our and other objects. I also think that he is slurring his words. All these events happened individually and also sometimes together. Before this started these events he has never had anything like this in the past. He has been taking all his medications as directed. Here in the emergency department he denies any symptoms in his states that he is at baseline. Does have a history of at least 1 episode of atrial fibrillation. He is on metoprolol. He is not on anticoagulation. He is a pdw-ajdfoie-ipoaelsky diabetic. Also history of hypertension and coronary artery disease. Upon admit to the floor patient is pleasantly resting in bed he is a poor historian due to memory impairment, and unable to contribute to HPI and ROS. He states that he does not recall any of his issues of weakness confusion slurred speech but that his has told him that he has been having increasing episodes, he has no memory of any issues no knowledge of any history of stroke, but he does recall that he had stent placement 2019. Patient has a history (10/2019 NSTEMI with PTCA x3), CAD, diabetes type 2 non-insulin dependent, hyperlipidemia, hypertension, BPH, atrial fibrillation, proximal tachycardia. Patient denies weakness, headache changes in vision, dizziness, numbness tingling, chest pain, shortness of breath. Patient's vital signs upon initial admit temp 97.8? BP 132/61, HR 72, RR 20, 99% on room air. Labs were as follows CK-MB 3.52, troponin was negative, total protein 6.1, sodium 35, head neck CTA: No focal intracranial stenosis or occlusion, Head CT: No acute intracranial process, ECG sinus rhythm, ventricular rate 65, no ST or T-wave changes. Patient admitted for TIA observation Patient History Medical History Allergies Aspirin long-term use Balance problem BPH (benign prostatic hyperplasia) BPH loc w urin obs/LUTS BPH w urinary obs/LUTS Chest pain Chronic cough Coronary artery disease Diverticular disease Dyspnea on exertion Erectile dysfunction Fall Glucose found in urine on examination Hearing loss Heart attack High prostate specific antigen (PSA) History of elevated PSA Hyperlipidemia associated with type 2 diabetes mellitus Hypertension Insomnia Muscle spasm of back Obesity (BMI 30.0-34.9) Other intermediate (current) drug therapy Rib pain on right side Shoulder pain Strain of muscle and tendon of back wall of thorax, initial encounter Tachycardia, paroxysmal Type 2 diabetes mellitus Unstable angina pectoris Urinary dribbling Vision disorder Surgical History Anesthesia H/O heart artery stent S/P PTCA (percutaneous transluminal coronary angioplasty) Status post anal fissurectomy Family & Social History Family History Father Cancer Brother Diabetes mellitus Brother Diabetes mellitus Son Diabetes mellitus Stroke Social History: household members spouse Tobacco & Substance use: Smoking Status Never smoker alcohol intake never Substance Use Type does not use Meds Home Medications and Allergies Home Medications Medication Instructions Recorded Confirmed Type B-complex with vitamin C 1 tab PO DAILY 10/02/19 11/10/20 History aspirin 81 mg tablet,delayed 81 mg PO DAILY 10/02/19 11/10/20 History release cholecalciferol (vitamin D3) 25 1,000 unit PO DAILY 10/02/19 11/10/20 History mcg (1,000 unit) capsule magnesium citrate 125 mg capsule 250 mg PO DAILY 10/02/19 06/24/20 History metformin 1,000 mg tablet 1,000 mg PO BID 10/02/19 11/10/20 History nitroglycerin 0.4 mg sublingual 0.4 mg SL Q5M PRN 10/02/19 11/10/20 History tablet atorvastatin 40 mg tablet 40 mg PO QPM 10/28/19 06/24/20 History calcium carbonate-vitamin D3 250 1 tab PO DAILY 10/28/19 11/10/20 History mg-125 unit tablet fexofenadine 180 mg tablet 180 mg PO DAILY #90 tab 10/28/19 06/24/20 Rx fluticasone propionate 50 1 spray NASAL DAILY 10/28/19 11/10/20 History mcg/actuation nasal spray,suspension vitamin b12 See Rx Instructions .ROUTE .COMPLEX 10/28/19 11/10/20 History clopidogrel 75 mg tablet 75 mg PO DAILY #14 tab 11/19/19 11/10/20 Rx empagliflozin 10 mg tablet 10 mg PO QAM 11/27/19 06/24/20 History baclofen 10 mg tablet 10 mg PO BID PRN #30 tab 02/11/20 11/10/20 Rx alfuzosin 10 mg tablet,extended 10 mg PO DAILY #90 tab 03/29/20 11/10/20 Rx release 24 hr lactobacillus combination no.9 4 4,000 mmu cells PO DAILY 06/24/20 11/10/20 History billion cell capsule lactobacillus combination no.9 4 4,000 mmu cells PO DAILY #90 cap 06/24/20 06/24/20 Rx billion cell capsule metoprolol tartrate 25 mg tablet 25 mg PO BID tab 06/24/20 11/10/20 History Allergies Allergy/AdvReac Type Severity Reaction Status Date / Time lisinopril AdvReac Intermediate cough Verified 05/18/20 11:30 atorvastatin AdvReac Verified 05/18/20 11:30 Review of Systems Review of Systems ROS: Yes All systems reviewed with the patient and are negative except as otherwise documented and unobtainable due to mental condition Exam Vital Signs (past 8 hours): - 11/09/20 18:03 Temperature 97.8 F Pulse Rate 72 Respiratory Rate 20 Blood Pressure 138/61 Pulse Oximetry 99 Oxygen Delivery Method Room Air Narrative Exam Narrative: General: Patient is a well-developed, well-nourished in no distress at this time. HEENT: Normocephalic, atraumatic, extraocular muscles intact, oral pharynx is clear and mucous membranes are moist. Neck is supple and symmetric, trachea is midline, no adenopathy, no thyroid enlargement, nontender, no masses palpated. Negative for JVD Chest: Normal AP diameter and contour without kyphoscoliosis, no nasal flaring, retractions, or tachypneic labored Lungs: Auscultation of all lung salcido are clear without adventitious sounds, wheezes, rhonchi, or rales. Cardio: S1 & S2 with regular rate and rhythm without murmur, rubs, or gallops, no carotid bruit, no cardiac pulsations present. Abdomen: Soft nontender, negative for organomegaly, or masses. Bowel sounds are present in all 4 quadrants without guarding or rebound, no CVA tenderness. Musculoskeletal: Muscle strength and tone are equal within normal limits, no deformity, crepitus, effusions, cyanosis, clubbing or edema present. Full range of motion intact radial and pedal pulses are normal. Skin: Warm dry and intact without rashes, ulcerations or petechiae. Neuro: Alert and orientated x3, strength is +5/5 in all extremities, sensation to touch intact, no gross deficits noted of cranial nerves. Psych: Patient has a well-kept appearance, appropriate affect, mental status attitude thought context and judgment are appropriate for age. Objective Labs Result Diagrams: 11/09/20 18:30 11/09/20 18:30 Labs: Laboratory Results - last 24 hr 11/09/20 11/09/20 11/09/20 18:30 18:30 18:30 WBC 6.4 RBC 4.92 Hgb 15.0 Hct 45.6 MCV 92.7 MCH 30.5 MCHC 32.9 RDW 13.7 Plt Count 190 Neut % (Auto) 64.9 Lymph % (Auto) 20.9 L Dillon % (Auto) 9.8 Eos % (Auto) 3.8 Baso % (Auto) 0.6 Neut # (Auto) 4200 Lymph # (Auto) 1300 Dillon # (Auto) 600 Eos # (Auto) 200 Baso # (Auto) 0 PT 11.6 INR 1.0 APTT 38 H Sodium 135 L Potassium 4.3 Chloride 103 Carbon Dioxide 25 BUN 20 Creatinine 1.08 Estimated GFR > 60.0 BUN/Creatinine Ratio 18.5 Glucose 117 H Calcium 9.1 Total Bilirubin 0.7 AST 33 ALT 39 Alkaline Phosphatase 61 Total Creatine Kinase 149 CK-MB (CK-2) 3.52 H CK-MB (CK-2) Rel Index 2.4 Troponin I < 0.012 Total Protein 6.1 L Albumin 3.9 Globulin 2.2 Albumin/Globulin Ratio 1.8 Urine Color Urine Appearance Urine pH Ur Specific [place] Urine Protein Urine Glucose (UA) Urine Ketones Urine Occult Blood Urine Nitrate Urine Bilirubin Urine Urobilinogen Ur Leukocyte Esterase Urine RBC Urine WBC Urine Bacteria Ur Culture Indicated? U Opiates 300ng/mL cut Ur Oxycodone Screen Urine Methadone Screen Ur Barbiturates Screen U Tricyclic Antidepress Ur Phencyclidine Scrn Ur Amphetamines Screen U Methamphetamines Scrn Ur MDMA Scrn (Ecstasy) U Benzodiazepines Scrn Urine Cocaine Screen U Marijuana (THC) Screen SARS-CoV-2 (PCR) 11/09/20 11/09/20 11/09/20 22:45 22:45 23:35 WBC RBC Hgb Hct MCV MCH MCHC RDW Plt Count Neut % (Auto) Lymph % (Auto) Dillon % (Auto) Eos % (Auto) Baso % (Auto) Neut # (Auto) Lymph # (Auto) Dillon # (Auto) Eos # (Auto) Baso # (Auto) PT INR APTT Sodium Potassium Chloride Carbon Dioxide BUN Creatinine Estimated GFR BUN/Creatinine Ratio Glucose Calcium Total Bilirubin AST ALT Alkaline Phosphatase Total Creatine Kinase CK-MB (CK-2) CK-MB (CK-2) Rel Index Troponin I Total Protein Albumin Globulin Albumin/Globulin Ratio Urine Color Yellow Urine Appearance Clear Urine pH 5.0 Ur Specific [place] 1.010 Urine Protein Negative Urine Glucose (UA) Trace H Urine Ketones Negative Urine Occult Blood Trace-lysed Urine Nitrate Negative Urine Bilirubin Negative Urine Urobilinogen 0.2 Ur Leukocyte Esterase Negative Urine RBC None seen Urine WBC None seen Urine Bacteria None seen Ur Culture Indicated? Cult not indicated U Opiates 300ng/mL cut Negative Ur Oxycodone Screen Negative Urine Methadone Screen Negative Ur Barbiturates Screen Negative U Tricyclic Antidepress Negative Ur Phencyclidine Scrn Negative Ur Amphetamines Screen Negative U Methamphetamines Scrn Negative Ur MDMA Scrn (Ecstasy) Negative U Benzodiazepines Scrn Negative Urine Cocaine Screen Negative U Marijuana (THC) Screen Negative SARS-CoV-2 (PCR) Negative Assessment & Plan Assessment & Plan narrative: 1. acute ischemia TIA, condition guarded, acute, present on admission -differential diagnosis TIA, stroke symptoms lasting greater than 24 hours, ischemic stroke, intracranial hemorrhage, subdural hematoma, epidural hematoma, seizure, brain tumor, migraine, vertigo, hypoglycemia, Monika [place] syndrome, multiple sclerosis, aortic dissection -Patient has a history (10/2019 NSTEMI with PTCA x3), CAD, diabetes type 2 non-insulin dependent, hyperlipidemia, hypertension, BPH, atrial fibrillation, proximal tachycardia. Patient's vital signs upon initial admit temp 97.8? BP 132/61, HR 72, RR 20, 99% on room air. Labs were as follows CK-MB 3.52, troponin was negative, total protein 6.1, sodium 35, head neck CTA: No focal intracranial stenosis or occlusion, Head CT: No acute intracranial process, ECG sinus rhythm, ventricular rate 65, no ST or T-wave changes. Patient admitted for TIA observation Vital signs q.4 hours, neuro checks q.2 hours for 1st 24 hours then q.4 hours, notify provider for temp greater than 38 C, systolic blood pressure > 200 or <120, heart rate >100 -treat systolic blood pressure>220 or diastolic blood pressure> 120 -activity bed rest until initial physical therapy assessment is performed, then mobilize DEREK as guided by Physical therapy, strict fall precautions. -supplemental O2 to maintain> 93%, check capillary blood glucose ACHS. -Diet NPO until swallow evaluation is done, then heart healthy if cleared -fluids:none -Medications: Aspirin 325 mg p.o. q.day within 48 hours, Plavix 75 mg daily -labs CBC with platelets, PT/PTT/INR, CMP, troponins, glucose, hemoglobin A1c, ESR/CRP, toxicology screen? Lipid panel -Consults PT/OT/ST evaluations -ABCD 2 score:4 Moderate Risk NIHSS :0 -diagnostics: MR ordered for tomorrow - Consider for further evaluation: carotid duplex and echo with bubble study tomorrow (carotid ultrasound and Doppler for vessel imaging) -discharge planning establish patient has a safe home environment if going home 2.Hypertension, chronic, not present on admission -continue metoprolol 25 mg b.i.d. 3. Type 2 diabetes, non-insulin dependent, chronic, well controlled not present on admission -will obtain hemoglobin A1c, hold metformin at this time, continue insulin sliding scale as inpatient 4. Hyperlipidemia, chronic, related to diabetes, control unknown, not present on admission -continue patient's Atrovastatin 5. BPH, chronic, controlled, not present on admission -continue patient's alfuzosin Code status: Full code COVID PCR: Negative Surrogate decision maker: Patient's spouse DVT/VTE prophylaxis: Contraindicated patient on Plavix and SCDs Scores GCS [place] coma scale eye opening: Spontaneous Evgeny coma scale verbal response: Orientated [place] coma scale motor response: Obey commands Evgeny coma scale total score: 15 NIHSS Level of Conciousness: Alert, keenly responsive Ask month/age: Answers both questions correctly. Open/close eyes, close hand: Performs both tasks correctly Best gaze horizontal: Normal Visual salcido: No visual loss Facial palsy: Normal symetrical movement Left arm drift: No drift for full 10 sec Right arm drift: No drift for full 10 sec Left leg drift: No drift for full 5 sec Right leg drift: No drift for full 5 sec Limb ataxia: Absent Sensory on face/arms/legs: Normal, no sensory loss Best language: No aphasia, normal Dysarthria: Normal Extinction or inattention: No abnormality Total NIH Stroke scale score: 0
--- NOTE | 2020-11-10 00:09 | DI.MRI.S_ITS ---
PROCEDURE: MR STROKE Pre- and post-contrast brain MRI, non-contrast brain MR angiogram, pre- and postcontrast neck MR angiogram INDICATIONS: TIA possible. History of facial droop. TECHNIQUE: Brain: Noncontrast axial T1 spin echo, axial T2 fast spin echo, sagittal and axial FLAIR, coronal T2 fast spin echo, axial gradient echo, axial diffusion and ADC through the brain. After the administration of contrast, axial 3D VIBE of the cranial vasculature and brain. Brain MRA: Non-contrast 3-D time of flight MR angiogram, with multiple vtaoixk-umnptykfb-myrtwynchx (MIP) reformats performed. Neck MRA: Axial and sagittal TruFISP through the neck. Coronal dynamic MR angiogram during administration of contrast in the arterial and venous phases, with 3-dimenstional viwjniq-udtlkhwna-urgxsanscm (MIP) reformats constructed from subtraction images. COMPARISON: [facility], CT, CT ANGIO HEAD AND NECK, 11/09/2020, 19:12. [facility], CT, CT STROKE, 11/09/2020, 18:20. FINDINGS: Image quality: There is motion artifact limiting evaluation. BRAIN: CSF spaces: There is mild moderate cerebral volume loss with prominence of the ventricles and sulci. Basal cisterns are patent. No extra-axial fluid collections. Brain: There are multiple clustered periventricular and subcortical foci of restricted diffusion within the right bernal radiata involving the frontal and parietal lobes. There is corresponding well-defined T2 hyperintensity. The findings are consistent with subacute infarcts. No evidence of hemorrhagic transformation. No intracranial hemorrhage, mass, or mass effect. There are a few additional areas of white matter T2 hyperintensity consistent with mild chronic small vessel ischemic changes. Brainstem appears normal. Normal intravascular flow voids are present. No abnormal intracranial enhancement. Skull and face: Calvarial marrow signal is normal. Orbits appear normal. Sinuses: Sinuses and mastoids are clear. BRAIN MR ANGIOGRAM: Anterior circulation: Intracranial internal carotid arteries are normal in size and patent bilaterally. The flow within the paired anterior cerebral arteries is symmetric and patent bilaterally. The anterior communicating artery is patent. There is a focal occlusion of the superior M2 segment of the right middle cerebral artery likely secondary to intraluminal thrombus. The left middle cerebral artery is widely patent. Posterior circulation: The visualized portions of the vertebral arteries are patent and join to form a patent basilar artery. The flow within the posterior cerebral arteries is symmetric and patent bilaterally. No high-grade stenoses, occlusions, or aneurysms. NECK MR ANGIOGRAM: Carotids: Great vessels demonstrate conventional anatomy as they arise from the aortic arch. The origins of the common carotid arteries appear patent. The calibers and courses of both common carotid arteries are normal. The carotid bulbs appear widely patent. The internal carotid arteries demonstrate normal course and caliber. Posterior circulation: The origins of the vertebral arteries appear patent. More superior portions of both vertebral arteries demonstrate normal course and caliber, and join to form a normal appearing basilar artery. Miscellaneous: Subclavian arteries appear patent. Pre-contrast images through the neck demonstrate no soft tissue abnormalities. IMPRESSION: BRAIN MRI: 1. 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 2. No intracranial hemorrhage or mass effect. 3. Mild to moderate cerebral volume loss. BRAIN MR ANGIOGRAM: 1. Focal occlusion of the superior M2 segment of the right middle cerebral artery likely secondary to an intraluminal thrombus. NECK MR ANGIOGRAM: 1. No high-grade stenosis or occlusion of the head and neck arteries. Specifically, the carotid bulbs are widely patent. 2. Confirmation of occlusion of the superior M2 segment of the right MCA. Findings discussed with Dr. Moss on 11/10/2020 at 9:40 a.m. Matias time. Dictated by: Bhupendra Kirk M.D. on 11/10/2020 at 8:10 Approved by: Bhupendra Kirk M.D. on 11/10/2020 at 8:41
[2020-11-10] MEDS: METOPROLOL IR 25 MG TABLET PO ×3 (03:07→20:26)
[2020-11-10 05:00] LABS: Add Manual Diff / Slide Review NO; Basophils Absolute Auto 0 /uL (0-100); Basophils Percent Auto 0.5 % (0-2); Eosinophils Absolute Auto 300 /uL (0-450); Eosinophils Percent Auto 3.7 % (2-4); Hematocrit 46.5 % (41-53); Hemoglobin 15.1 g/dL (13.5-17.5); Lymphocytes Absolute Auto 1600 /uL (1100-4500); Lymphocytes Percent Auto 18.1 % (25-40); Mean Corpuscular HGB Conc 32.4 % (30-36); Mean Corpuscular Volume 92.6 fL (80-100); Monocytes Absolute Auto 800 /uL (0-900); Monocytes Percent Auto 9.1 % (3-14); Neutrophils Absolute Auto 6000 /uL (1500-7000); Neutrophils Percent Auto 68.6 % (50-75); Platelet Count 188 X10^3/uL (150-400); Red Blood Cell Count 5.02 X10^6/uL (4.5-5.9); White Blood Cell Count 8.8 X10^3/uL (4.5-11.0)
[2020-11-10 05:01] LABS: INR 1.1 (0.9-1.3); Prothrombin Time 12.4 SECONDS (10.1-12.7)
[2020-11-10 05:06] LABS: Hemoglobin A1C% w Est Avg Glu 6.5 % (4.0-6.0)
--- NOTE | 2020-11-10 05:14 | PC.ADMIT ---
[email or web address] [facility] unit 11 Admission Note: Patient arrived to unit at 0045 via wheelchair from ED, patient was able to ambulate to bathroom without any difficulty. Patient alert and oriented x4. Patient has IV in LAC, saline locked. Patient was placed on personnel monitor and was seen to be going from NSR to a-fib, hospitalist was notified, and patients home medication metoprolol was given. Patients home medications were reconciled to the best of patients ability. Patient not complaining of any chest pain or shortness of breath. VSS. Patients wallet was placed in the safe. Patient oriented to room, bed in lowest position and locked, call light within reach, gown and non slip socks placed on patient. The patient,Gio Bosch,85 y/o, was given written information regarding hospital policies, unit procedures and contact persons. Patient's smoking status: Never smoker. Vital Signs - 8 hr 11/10/20 00:47 11/10/20 01:46 11/10/20 04:46 Temperature 97.8 F 97.2 F L 96.6 F L Pulse Rate 63 70 72 Respiratory Rate 18 20 20 Blood Pressure 118/86 139/70 151/72 H Pulse Oximetry 98 98 97
[2020-11-10 05:15] LABS: BUN Creatinine Ratio 15.8 (6-22); Blood Urea Nitrogen 19 mg/dL (9-20); Calcium 9.1 mg/dL (8.4-10.2); Carbon Dioxide 28 mmol/L (22-32); Chloride 105 mmol/L (98-107); Cholesterol 78 mg/dL (140-199); Estimated Glomerular Filt Rate 57.7 mL/min (>60); Glucose 122 mg/dL (80-110); HDL Cholesterol 29 mg/dL (40-60); HEMOLYSIS < 15 (0-50); LDL Cholesterol Calculated 26 mg/dL (<100); Magnesium 1.8 mg/dL (1.6-2.3); Potassium 4.3 mmol/L (3.4-5.1); Sodium 137 mmol/L (137-145); Triglycerides 114 mg/dL (35-150)
[2020-11-10 05:24] LABS: Troponin I < 0.012 ng/mL (0.01-0.034)
[2020-11-10 05:40] LABS: Erythrocyte Sedimentation Rate 1 MM/HR (0-15)
[2020-11-10 05:50] LABS: C-Reactive Protein Quant < 0.5 mg/dL (<1.0)
[2020-11-10] MEDS: DOCUSATE 100 MG CAPSULE PO ×2 (09:44→20:26)
[2020-11-10] MEDS: CLOPIDOGREL 75 MG TABLET PO (09:44)
[2020-11-10] MEDS: ASPIRIN EC 81 MG TABLET PO (09:44)
[2020-11-10] MEDS: SODIUM CHLORIDE 0.9% FLUSH 10 ML IV ×2 (09:45→21:38)
--- NOTE | 2020-11-10 09:58 | DI.ECHO.S_ITS ---
[place] +---------+ [facility] +---------+ : : [address] : : : : [id number] : : : : Phone: [phone]---------+ Echocardiogram Report + + :Name: MANSOOR FREEDMAN Study Date: 11/10/2020 Height: 71 in : :[facility] ReadingLocation: Weight: 187 lb : : Gender: Male BSA: 2.0 m2 : :: 1935 Age: 85 yrs BP: 116/65 mmHg: :Reason For Study: CVA WITH THROMBUS, HX OF ATRIAL FIBRILLATION : :Ordering Physician: NOA, : :DEANNA RAPP Performed By: Glendy Feliz : :Referring: DEANNA LATHAM : + + Interpretation Summary The ejection fraction is estimated to be 60-65%. The left atrial size is normal. There is no Doppler evidence for an interatrial shunt. There is mild mitral regurgitation. There is mild tricuspid regurgitation. Procedure: A two-dimensional transthoracic echocardiogram with color flow and Doppler was performed. The study quality was technically adequate. Comparison is made with the echocardiogram of 10/21/2019. The patient was in sinus rhythm with heart rates between 62-73 bpm during the exam. The patient had occasional PVCs during the exam. Left Ventricle: The left ventricle is normal in size. Left ventricular wall thickness is borderline increased. The ejection fraction is estimated to be 60-65%. Left ventricular wall motion is normal. Right Ventricle: The right ventricle is normal in size and function. Atria: The left atrial size is normal. The right atrium is borderline dilated. There is no Doppler evidence for an interatrial shunt. Mitral Valve: The mitral valve is normal in structure and function. There is mild mitral regurgitation. Aortic Valve: The aortic valve is trileaflet. The aortic valve is mildly calcified. There is no aortic valve stenosis. There is trace aortic regurgitation. Tricuspid Valve: The tricuspid valve is normal in structure and function. There is mild tricuspid regurgitation. Right ventricular systolic pressure is estimated to be 22 mmHg plus the clinically estimated CVP which cannot be estimated on this exam. Pulmonic Valve: The pulmonic valve leaflets are thin and pliable; valve motion is normal. There is no pulmonic valvular regurgitation. Great Vessels: The aortic root is normal size. The ascending aorta is normal in size. The inferior vena cava was not well visualized. Pericardium/ Pleura There is no pericardial effusion. There is no pleural effusion. MMode/2D Measurements & Calculations LVIDd: 4.2 cm LVOT diam: 2.0 cm LVIDs: 2.7 cm Ao root diam: 3.5 cm FS: 35.5 % asc Aorta Diam: 3.4 cm EPSS: 0.85 cm Ao Arch Diam (Prox Trans): 2.9 cm IVSd: 1.1 cm LVPWd: 0.96 cm LV colvin. diameter/BSA (cm/m^2): 2.0 LV sys. diameter/BSA (cm/m^2): 1.3 LA A2 area: 16.5 cm2 RA long axis: 4.2 cm LA A4 area: 17.4 cm2 RA area: 13.0 cm2 LA length (vol): 5.1 cm RA vol: 34.0 ml LA vol: 47.9 ml RA : 16.6 ml/m2 LA vol index: 23.4 ml/m2 RVD1 (basal): 3.2 cm TAPSE: 2.1 cm Doppler Measurements & Calculations Ao V2 max: 113.6 cm/sec LVOT Max Hubert: 72.7 cm/sec Ao V2 mean: 78.4 cm/sec LV V1 max P.1 mmHg Ao max P.2 mmHg LV V1 VTI: 18.9 cm Ao mean P.8 mmHg JAJA(I,D): 2.2 cm2 Ao V2 VTI: 26.6 cm JAJA(V,D): 2.0 cm2 sev ratio: 0.71 JAJA indexed to BSA (cm^2/m^2): 1.1 MV E max hubert: 52.4 cm/sec TR max hubert: 236.0 cm/sec MV A max hubert: 68.6 cm/sec TR max P.3 mmHg MV E/A: 0.76 PA V2 max: 40.7 cm/sec Med Peak E' Hubert: 7.0 cm/sec PA V2 mean: 27.8 cm/sec E/E' med: 7.5 PA mean P.35 mmHg Lat Peak E' Hubert: 6.0 cm/sec PA pr(Accel): 19.1 mmHg E/E' lat: 8.7 E/e' average: 8.1 MV dec time: 0.23 sec SV(LVOT): 58.2 ml Reading Physician:12:38 PM
--- NOTE | 2020-11-10 12:27 | CM.DANOTE ---
DCP: Case received, EMR reviewed and met with patient. , [place], was also in patient's room. Introduced self and role. Was able to obtain information from patient and spouse regarding his baseline activity level prior to hospitalization. DCP assessment completed with information currently available. Patient is an 85 year old male who admitted yesterday evening to the care of the hospitalist team. PCP: EJNNA Alonso. Payer: confirmed: [facility]. Patient came to the hospital via private vehicle secondary to having some altered mental status/confusion. Patient came in for TIA symptoms, MRI noted subacute subcortical and periventricular infarcts of right bernal. Met with patient and in his room. He was sitting up having lunch. Confirmed that patient does drive, stated, he won't be driving now for a while. He is independent at baseline, uses no DME supplies. He and his recently moved from here in [place] to [facility], and purchased a home. P: DCP to continue to follow. Will see P.T. notes when available. According to nursing note, patient was able to ambulate in his room. April Painter RN/Data Compiler
--- NOTE | 2020-11-10 13:37 | ST.IPSLE ---
Visit Care Team Role Provider Type JENNA Alonso Primary Care Provider Advanced Product Safety Tester Specialty: Family Practice Address: [address] [place] [address], [address] Email: [email or web address] Misael Garcia DO Emergency Provider Physician Referring Provider Specialty: Emergency Medicine Address: [address] [place] [address], [address] Email: [email or web address] [facility] Ad[facility] Provider Physician Attending Provider Specialty: Medical Address: [address] [place] [address], [id number] Email: Past Medical History (Last Reviewed 11/10/20 @ 00:06 by SAULO TrevinoELIEL) Allergies (Medical) Aspirin long-term use (Medical) Balance problem (Medical) BPH (benign prostatic hyperplasia) (Medical) BPH loc w urin obs/LUTS (Medical) BPH w urinary obs/LUTS (Medical) Chest pain (Medical) Chronic cough (Medical) Coronary artery disease (Medical) Diverticular disease (Medical) Dyspnea on exertion (Medical) Erectile dysfunction (Medical) Fall (Medical) Glucose found in urine on examination (Medical) Hearing loss (Medical) Heart attack (Medical) High prostate specific antigen (PSA) (Medical) History of elevated PSA (Medical) Hyperlipidemia associated with type 2 diabetes mellitus (Medical) Hypertension (Medical) Insomnia (Medical) Muscle spasm of back (Medical) Obesity (BMI 30.0-34.9) (Medical) Other jail (current) drug therapy (Medical) Rib pain on right side (Medical) Shoulder pain (Medical) Strain of muscle and tendon of back wall of thorax, initial encounter (Medical) Tachycardia, paroxysmal (Medical) Type 2 diabetes mellitus (Medical) Unstable angina pectoris (Medical) Urinary dribbling (Medical) Vision disorder (Medical) Speech-Language Pathology Speech/Language Eval [employer] Adult Cognitive Linguistic Eval Start: 11/10/20 12:31 Freq: Status: Active Protocol: Document 11/10/20 12:33 LL (Rec: 11/10/20 13:37 LL [id number]) Adult Cognitive Linguistic Evaluation Session Time Visit Start Time 10:30 Visit Stop Time 11:03 Total Visit Minutes 33 Visit Information Visit Number 1 Referral Referring Provider KARSON Trevino Reason for Referral TIA protocol Setting Assessment Location Acute Care Visit Type Note Type Initial evaluation Patient Information Identification Type Name,Date of ,Wristband Medical History Per chart review and H&P, patient is a 85-year-old male with PMHx of 10/2019 NSTEMI with PTCA x3, CAD, diabetes type 2 non-insulin dependent, hyperlipidemia, hypertension, vision disorder, hearing loss, BPH, atrial fibrillation, and proximal tachycardia, who presented to [facility] with his for evaluation of concern for TIA. Patient's noticed changes in mentation (e.g., fluctuating confusion, misplacing items) and speech production (e.g., slurred speech) over last several weeks. Patient is a poor historian due to baseline memory impairment. 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 No hearing aids visualized at bedside. Vision Vision Status Impaired Comments Hx of vision disorder, reading glasses at bedside Previous Therapy Previous Speech-Language Therapy No: None reported by patient or patient's . Subjective Patient Report Patient sitting upright, alert , oriented x 4, and agreeable to participate in evaluation. Patient's was present during evaluation as well. Both reported patient's baseline cognitive-linguistic difficulties such as remembering names, requiring notes / written list to remember information, driving safety (e.g., reported that patient almost ran through a red light one time), simple / complex calculations / mathematics, word finding which patient compensates with use of word associations independently, and sustained attention (e.g., fixating on one part of information and disregarding the rest). Pain Intensity 0 Pain Scale Used Numeric (0 - 10) Mental Status Alert,Cooperative Assessment Oral Motor Examination Completed Yes Results Appeared within functional limits. No lingual deviation, oral weakness, or reduced oral ROM visualized. Patient denied any oral motor changes since this admission. Patient and patient's nurse denied any swallowing difficulty. Patient passed nurse swallow screen and placed on general diet per protocol. Patient passed Jayda Swallow Protocol with this [employer]. Informal Assessment Receptive Language Normal No: decreased secondary to baseline cognitive-linguistic difficulties Receptive Language Impairment(s) Reading comprehension, Comprehension of conversation Expressive Language Normal Yes: Appeared within functional limits Pragmatic Language Normal Yes Speech Normal Yes: No slurred speech observed at bedside. Cognition Normal No: decreased secondary to baseline cognitive-linguistic deficits Cognitive Impairment(s) Attention,Short-term memory, Executive functioning,Problem solving,Thought organization, Safety awareness Formal Assessment Standardized Test/Screener Type [facility] Status ([facility]) Administration Complete Results - Dementia / Severe cognitive-linguistic impairment. Deficits in immediate recall, delayed recall, problem solving, executive functioning, attention (e.g., sustained), and auditory comprehension. Findings/Results Language Function Mild-moderately impaired Cognitive Function Severely impaired Findings The patient currently presents with a severe cognitive impairment resulting in decreased receptive language skills, characterized by deficits in immediate recall, delayed recall, problem solving, executive functioning , attention (e.g., sustained), and auditory comprehension. In addition, patient and patient's reported baseline cognitive-linguistic deficits in naming, short term memory, safety awareness, calculations (e.g., simple and complex), and attention prior to this admission. These above listed deficits negatively impact patient's ability to safely and successfully complete ADLs / IADLs independently. Reviewed evaluation results and specific deficits with both patient and patient's . Both verbalized that deficits appear to be at baseline. No acute skilled speech therapy warranted at this time due to above listed information. However, it is recommended that patient be discharged with 24 supervision / assistance and receive home health speech therapy services to further assess patient's cognitive-linguistic abilities in his living environment to establish appropriate / functional treatment goals and maintain highest quality of life. Cognitive Communication Deficits Self-awareness of Cognitive- Situational awareness ( Communication Deficits recognition of problem in context;in real time) Prognosis Prognosis Fair Based on Cognitive status Comment Baseline cognitive-linguistic impairments Plan of Care Speech-Language Treatment No Patient/Caregiver Education Described results of evaluation,Patient expressed understanding of evaluation, Family/caregivers expressed understanding of evaluation Discharge Recommendations Home with Home Health
--- NOTE | 2020-11-10 14:15 | OT.IP.EVAL ---
Past Medical History (Last Reviewed 11/10/20 @ 00:06 by KARSON Trevino) Allergies Aspirin long-term use Balance problem BPH (benign prostatic hyperplasia) BPH loc w urin obs/LUTS BPH w urinary obs/LUTS Chest pain Chronic cough Coronary artery disease Diverticular disease Dyspnea on exertion Erectile dysfunction Fall Glucose found in urine on examination Hearing loss Heart attack High prostate specific antigen (PSA) History of elevated PSA Hyperlipidemia associated with type 2 diabetes mellitus Hypertension Insomnia Muscle spasm of back Obesity (BMI 30.0-34.9) Other snf (current) drug therapy Rib pain on right side Shoulder pain Strain of muscle and tendon of back wall of thorax, initial encounter Tachycardia, paroxysmal Type 2 diabetes mellitus Unstable angina pectoris Urinary dribbling Vision disorder Surgical History (Last Reviewed 11/10/20 @ 00:06 by KARSON Trevino) Anesthesia H/O heart artery stent S/P PTCA (percutaneous transluminal coronary angioplasty) Status post anal fissurectomy Occupational Therapy Inpatient Evaluation/Re-Eval M1 PT/OT-IP Prior Functional Status Start: 11/10/20 19:56 Freq: NEEDED Status: Active Protocol: Document 11/10/20 19:56 [facility] (Rec: 11/10/20 20:16 [facility] [id number]) Medical Review Prior Functional Status Medical History Reviewed Yes Communication able to make needs know but is [place] Mobility and Gait pt stated that he is independent with all mobilities and ambulation without AD Activities of Daily Living and IADL's Completely independent with all ADl's, able to take medications from a pill box, pt's does the cooking, money management, and other IADl needs. Pt still drives. Prior Functional Level (Other details) Pt's son lives with them and assists to take out the trash and does the heavy lifting around the house. Social History Household Members spouse,children Living Arrangements Mobile home Number of Floors (Floors) One Floor Number of Stairs To Enter/Railing? 5 steps with L rail ascending Home Environment Standard Height Toilet,Tub/ Shower Home Equipment Straight Cane,Shower Seat with Backrest,Hand Held Shower Additional Social History Comment pt has an adjustable bed M2 OT-IP Current Condition Start: 11/10/20 19:56 Freq: Status: Active Protocol: Document 11/10/20 19:56 [facility] (Rec: 11/10/20 20:16 [facility] [id number]) Occupational Therapy Current Condition Current Condition Evaluation Date 11/10/20 Treatment Diagnosis CVA, decreased functional cognition Diagnosis Onset Date 11/09/20 M3 OT- IP Subjective and Pain Start: 11/10/20 19:56 Freq: Status: Active Protocol: Document 11/10/20 19:56 [facility] (Rec: 11/10/20 20:16 [facility] [id number]) OT- Subjective Occupational Therapy Visit Type Type Initial Evaluation Visit Start Time 13:03 Visit Stop Time 14:15 Total Visit Minutes 72 Occupational Therapy Visit Comments Patient Comments Pt open to doing OT eval, pt's in the room. Patient/Caregiver Goals TO go home. OT Pain Assessment Pain When Pain Assessed At Rest Pain Present Pain Present Denied Pain M4 OT- IP ADL's Start: 11/10/20 19:56 Freq: Status: Active Protocol: Document 11/10/20 19:56 [facility] (Rec: 11/10/20 20:16 [facility] [id number]) OT [id number]-[id number] Comments OT Self-Feeding Comments Not at meal time. OT ADL-Grooming General Evaluation Grooming Ability Standby Assistance OT ADL-Oral Care Comments Oral Care Comments Not performed. OT ADL-Dressing General Eval Lower Body Dressing Ability Minimal Assistance Comments OT Dressing Comments Assist to help get the back of his shoe over his heel. To attempt shoe horn tomorrow. OT ADL-Toileting General Evaluation Toileting Ability Standby Assistance OT ADL-Bathing Comments OT Bathing Comments Not performed. M5 OT- IP IADL's Start: 11/10/20 19:56 Freq: Status: Active Protocol: Document 11/10/20 19:56 [facility] (Rec: 11/10/20 20:16 [facility] [id number]) OT-Instrumental Activities of Daily Living Home Safety Awareness Ability to Problem Solve Emergency Unable to Problem Solve Situations Home Safety Comments Pt 80% accurate for home safety questions, pt states would open the door for a stranger. Medication Management Medication Management Comments Pt states usues a pill organizer. Money Management Money Management Caregiver Provides Assistance Money Management Comments Pt states has always has difficulty with numbers and therefore his pays the bills. Meal Preparation Meal Preparation Caregiver Provides Assist Sales Support Representative Sales Support Representative Caregiver Provides Assist Driving Driving Concerns Identified Regarding Safety M6 OT- IP Functional Cognition Start: 11/10/20 19:56 Freq: Status: Active Protocol: Document 11/10/20 19:56 [facility] (Rec: 11/10/20 20:16 [facility] [id number]) Cognitive Factors Limiting Selfcare Function Cognitive Ability Level of Alertness Alert Patient Orientation Name,Place Attention Span Ability Capable of Focused Attention, Capable of Sustained Attention Ability to Follow Commands Able to Follow One Step Commands with Increased Time, Able to Follow One Step Commands with Repetition Memory Description Short Term Impaired,Working Impaired Safety Awareness Underestimates Need for Assistance Problem Solving Ability Unable to Identify Errors, Needs Assist to Identify Solutions Executive Function Ability Unable to Switch Focus,Unable to Make Plans,Unable to Organize Plans,Unable to Remember Details Cognitive Tests SLUMS Per DOUBLING MACHINE OPERATOR , pt score 1830. Cognitive Comments Cognitive Assessment Comments Pt not able to complete Railroad Making Part B and already at 345 seconds with max vc and only completed 75% of the assessment. Pt score indicated severe impairments for task switching, speed of processing , mental flexibility, executive function, and visual attention. Pt's states prior to assessment that pt will not be driving. Pt however states would like to get back to driving eventually . OT- Vision and Hearing OT- Hearing Assessment OT- Hearing Assessment Use of Hearing Aids OT- Vision Assessment Visual Acuity Glasses All The Time Visual Attentiveness WFL Occular Pursuits WFL Visual Convergence WFL Visual Harrell WFL M7 OT- IP Mobility and Balance Start: 11/10/20 19:56 Freq: Status: Active Protocol: Document 11/10/20 19:56 [facility] (Rec: 11/10/20 20:16 [facility] [id number]) OT- Bed Mobility Assessment Supine to Sit Supine to Sit Assist Standby Assistance Sit to Supine Sit to Supine Assist Standby Assistance OT-Transfer Assessment Sit to and From Stand Sit to and from Stand Standby Assistance Transfers Transfer Ability Standby Assistance,Contact Guard Assistance Technique Transfer Destination Bed,Toilet Transfer Technique Stand Step Pivot Devices Transfer Assistive Devices None,Gait Belt Comments Mobility Comments Pt tends to use momentum to assist to get him out of bed versus use of controlled movement of log rolling. Educated pt on log rolling and pt able to get out of bed easier, however pt fearful that he may fall out of bed, therefore suggested getting a bed rail for home. OT- Gait Assessment Comments Gait Ability Comments Pt had his shoes on and able to walk to the bathroom and to the sink with close SBA. OT- Balance Assessment Sitting Balance and Reactions Static Sitting Balance Ability Normal Dynamic Sitting Balance Ability Good Standing Balance and Reactions Static Standing Balance Ability Good Comments Other Balance Tests/Deviations/Treatment Pt while at the sink started : to lean to the right and able to catch himself with the counter. Pt states at home has been having increased difficulties or loss of balance during turns, backing up, etc... M8 OT- IP Objective Assessments Start: 11/10/20 19:56 Freq: Status: Active Protocol: Document 11/10/20 19:56 [facility] (Rec: 11/10/20 20:16 [facility] [id number]) OT Gross Range of Motion Upper Extremity Range of Motion Assessment Within Functional Limits OT Strength Upper Extremity Strength Assessment Within Functional Limits OT- Coordination Assessment Upper Extremity Finger to Nose Test Within Functional Limits Comments Coordination Comments R hand 9 hole peg 32.5 sec. L hand 9 hole peg 37 sec. OT-Muscle Tone Assessment Muscle Tone WNL Yes OT Sensation Assessment Comments Summary Comments Intact for light touch , however has word finding problems for some body parts. Decrease acuity for proprioception and kinesthesia for left wrist and hand. M9 OT- IP Assessment and Plan Start: 11/10/20 19:56 Freq: Status: Active Protocol: Document 11/10/20 19:56 [facility] (Rec: 11/10/20 20:16 [facility] [id number]) OT Summary Assessment and Plan Potential Rehabilitation Potential Good Analytic Complexity at Evaluation Low Summary OT Impairments Balance,Coordination,Sensation ,Functional Cognition, Functional Mobility,Grooming, Dressing,Toileting,Bathing, Toilet Transfers,Shower Transfers,Activity Tolerance Progress Towards Goals Slow Progress due to Medical Issues,Slow Progress due to Activity Tolerance,Slow Progress due to Cognition Assessment Summary Pt low complexity s/p CVA and now having decreased dynamic balance, coordination, short term memory , and decreased executive function. Pt would benefit from acute rehab prior to going home. Goals Self-Feeding Goal Independent Grooming Goal Independent Dressing Goal Independent Toileting Goal Independent Bathing Goal Independent Toilet Transfer Goal Independent Shower Transfer Goal Independent Days to Meet Goals 15 Frequency of Treatment Frequency Of Treatment Once a Day Treatment Plan OT Treatment Plan ADL Training,Functional Cognition Training,Functional Mobility,Patient/Family Education,Discharge Planning Other Treatment Recommendations and Next shower Treatment Focus Discharge Recommendations OT Discharge Recommendations Acute Rehab Transportation Needs at Discharge Private Vehicle
--- NOTE | 2020-11-10 14:40 | PT-IP ANOTE ---
checked on pt but pt is working with [employer]. will check in the afternoon
--- NOTE | 2020-11-10 15:30 | PT.IIE ---
Surgical History (Last Reviewed 11/10/20 @ 00:06 by KARSON Trevino) Anesthesia H/O heart artery stent S/P PTCA (percutaneous transluminal coronary angioplasty) Status post anal fissurectomy Medical History (Last Reviewed 11/10/20 @ 00:06 by KARSON Trevino) Allergies Aspirin long-term use Balance problem BPH (benign prostatic hyperplasia) BPH loc w urin obs/LUTS BPH w urinary obs/LUTS Chest pain Chronic cough Coronary artery disease Diverticular disease Dyspnea on exertion Erectile dysfunction Fall Glucose found in urine on examination Hearing loss Heart attack High prostate specific antigen (PSA) History of elevated PSA Hyperlipidemia associated with type 2 diabetes mellitus Hypertension Insomnia Muscle spasm of back Obesity (BMI 30.0-34.9) Other long filler cigar roller machine (current) drug therapy Rib pain on right side Shoulder pain Strain of muscle and tendon of back wall of thorax, initial encounter Tachycardia, paroxysmal Type 2 diabetes mellitus Unstable angina pectoris Urinary dribbling Vision disorder Physical Therapy Inpatient Evaluation/Re-Eval M1 PT/OT-IP Prior Functional Status Start: 11/10/20 17:51 Freq: NEEDED Status: Active Protocol: Document 11/10/20 16:50 AB (Rec: 11/10/20 18:19 AB [id number]) Medical Review Prior Functional Status Medical History Reviewed Yes Communication able to make needs know but is [place] Mobility and Gait pt stated that he is independent with all mobilities and ambulation without AD Social History Household Members spouse Living Arrangements Mobile home Number of Floors (Floors) One Floor Number of Stairs To Enter/Railing? 5 steps with L rail ascending Home Environment Standard Height Toilet,Tub/ Shower Home Equipment Straight Cane,Shower Seat with Backrest,Hand Held Shower Additional Social History Comment pt has an adjustable bed M2 PT-IP Current Condition Start: 11/10/20 17:51 Freq: NEEDED Status: Active Protocol: Document 11/10/20 16:50 AB (Rec: 11/10/20 18:19 AB [id number]) Physical Therapy Current Condition Current Condition Evaluation Date 11/10/20 Treatment Diagnosis CVA; difficulty in walking Onset Date 11/09/20 Precautions Other Precautions falls M3 PT-IP Subjective Start: 11/10/20 17:51 Freq: NEEDED Status: Active Protocol: Document 11/10/20 16:50 AB (Rec: 11/10/20 18:19 AB [id number]) Subjective Physical Therapy Visit Type Type Initial Evaluation Visit Start Time 15:30 Visit Stop Time 16:06 Total Visit Minutes 36 Number of DOOR PERSON Visits 0 Physical Therapy Visit Comments Patient Comments pt is agreeable to do PT Therapy Pain Assessment Pain Present Pain Present Denied Pain M4 PT-IP Mobility and Gait Start: 11/10/20 17:51 Freq: NEEDED Status: Active Protocol: Document 11/10/20 16:50 AB (Rec: 11/10/20 18:19 AB [id number]) PT-Bed Mobility Assessment Supine to Sit Supine to Sit Standby Assistance Sit to Supine Sit to Supine Standby Assistance PT-Transfer Assessment Sit to and From Stand Sit to and from Stand Contact Guard Assistance, Minimal Assistance,1 Person Assistance Equipment Transfer Assistive Device None,Gait Belt Orthotic/Prosthetic Devices or Brace: No Comments Mobility Comments spouse in room with pt. pt agreed to do PT. completed supine to sit SBA. completed sit to stand CGA with use of UE to push. initially instructed to use FWW but pt tends to just carry FWW and not use it. assessed ambulation without AD and compelted 35 ft min A and cues with (+) LOB requiring mod A for recovery. increase LOB to the R noted. pt has decrease safety awareness and educated on safety. Tinetti balance assessment completed: balance score: 8/16 gait score of 9/ 12 with total score of 17/28 which relates to high fall risk. educated pt on safety. instructed on finding COG and being able to recover body back to COG during mobility. pt understood. ambulated again in room without AD CGA ~ 20 ft. educated pt and spouse regarding safety and informed pt that he will need an AD for ambulation at this time for safety and will assess and train more tomorrow. also informed them regarding acute rehab recommendation at this time but if pt decides to go home, informed spouse that he will need 24/7 assist available at this time and will need an assistive device and outpt PT. spouse and pt understood. pt requested to go back to bed . completed sit to supine SBA . positioned in bed. call light and table placed within reach. left pt with spouse in room. Gait Assessment Gait Gait Assistance Required: Contact Guard Assist,Minimum Assistance,Moderate Assistance Able to Maintain Weight Bearing Status Yes During Gait Assistive Devices Assistive Device None,Gait Belt Orthotic/Prosthetic Devices or Brace: No Gait Deviations General Gait Pattern Ataxic,Decreased Stride Length ,Decreased Feet Clearance, Flexed Trunk,Wide Based Gait Factors Limiting Gait Function Factors Limiting Gait Function Poor Balance,Poor Safety Awareness Comments Gait Comments pls refer to mobility section for details PT-Balance Assessment Sitting Balance and Reactions Static Sitting Balance Ability Good Dynamic Sitting Balance Ability Good Standing Balance and Reactions Static Standing Balance Ability Fair Dynamic Standing Balance Ability Fair Device Used without AD Functional Assessments Functional Tests Tinetti Balance and Gait Assessment balance: 04/25 gait: 05/22 total: : high fall risk Other Functional Tests Performed tinetti balance assessment: very unsteady with standing with narrow MIGUEL, with eyes closed, unable to walk a straight path with LOB to the R completed sit to stand without use of UE and pt pushes BLE back against the bed to get up requiring min A and cues for initial standing balance M5 PT-IP Objective Assessments Start: 11/10/20 17:51 Freq: NEEDED Status: Active Protocol: Document 11/10/20 16:50 AB (Rec: 11/10/20 18:19 AB [id number]) Orientation Orientation/Cognition Level of Alertness Alert Orientation Name,Place,Situation Language Function Ability Hard of Hearing Safety Awareness Decreased Safety Awareness Gross Range of Motion Lower Extremity ROM Assessment Within Functional Limits Strength Lower Extremity Strength Hip 4-/5 Knee 4-/5 Sensation Assessment Sensation Gross Sensation WNL Muscle Tone Muscle Tone WNL Yes M6 PT-IP Treatment Start: 11/10/20 17:51 Freq: NEEDED Status: Active Protocol: Document 11/10/20 16:50 AB (Rec: 11/10/20 18:19 AB [id number]) Physical Therapy Treatment Education Education Provided Safety M7 PT-IP Assessment and Plan Start: 11/10/20 17:51 Freq: NEEDED Status: Active Protocol: Document 11/10/20 16:50 AB (Rec: 11/10/20 18:19 AB [id number]) PT Summary Assessment and Plan Potential Rehabilitation Potential Good Status of Condition at Evaluation Evolving Summary Impairments Pain,ROM,Strength,Balance, Coordination,Cognition,Bed Mobility,Transfers,Gait, Activity Tolerance Assessment Summary pt requiring CGA to min a with ambulation without AD with (+ ) LOB during ambulation. recent brain MRI showed (+) infarcts. recommending acute rehab at this time to improve mobility independence and risk of falls. talked to pt and spouse regarding recommendation and is aware that this is pending authorization and if pt goes home will require 24/7 assist available due to high fall risk an will need outpt PT. will continue to assess progress and will continue balance and ambulation training. Goals Bed Mobility Goal Standby Assistance Transfer Goal Standby Assistance,Cane,Front Wheeled Walker Gait Goal Standby Assistance,Cane,Front Wheel Walker Gait Distance 200 Other Goals improve ambulation without AD 250 ft SBA up/down 5 steps L rail ascending SBA Days to Meet Goals 5 Frequency of Treatment Frequency Of Treatment Once a Day Treatment Plan Physical Therapy Treatment Plan Bed Mobility Training,Transfer Training,Gait Training, Therapeutic Exercise,Balance Retraining,Discharge Planning, Neuromuscular Re-ed, Coordination Retraining Other Recommendations and Next Treatment ambulation training FWW/SPC Focus Precautions Other Precautions falls Recommendations To Nursing Amount of Assist Needed 1 Person Assist Discharge Recommendations PT Discharge Recommendations Acute Rehab Equipment Needed for Home Before FWW if pt goes home and is not Discharge safe with SPC/without AD Transportation Needs at Discharge Private Vehicle,Wheelchair/ Cabulance
--- NOTE | 2020-11-10 19:36 | PC.NURSE ---
Addendum entered by Sherri Cartwright R.N. 11/10/20 20:33: Pt tried the SCD's however was unable to sleep SCD off at this time. Original Note: Pt has been resting quietly throughout shift. Denies any discomfort. SpO2 98% RA. Lungs clear, Tele showing NSR per ICU staff. HL LFA intact/patent. Call light w/in reach, bed alarm on for pt safety. Continue w/plan of care.
[2020-11-10] MEDS: ATORVASTATIN 20 MG TABLET 80 MG PO (20:26)
[2020-11-11] VITALS (11 sets, daily range): BP systolic 108–149; BP diastolic 57–77; PULSE 53–73; RESP 16–18; TEMP 36–36.8; O2SAT 94–98
[2020-11-11 05:33] LABS: BUN Creatinine Ratio 21.3 (6-22); Blood Urea Nitrogen 23 mg/dL (9-20); Calcium 9.2 mg/dL (8.4-10.2); Carbon Dioxide 28 mmol/L (22-32); Chloride 104 mmol/L (98-107); Estimated Glomerular Filt Rate > 60.0 mL/min (>60); Glucose 108 mg/dL (80-110); HEMOLYSIS 31 (0-50); Magnesium 1.8 mg/dL (1.6-2.3); Potassium 4.5 mmol/L (3.4-5.1); Sodium 135 mmol/L (137-145)
--- NOTE | 2020-11-11 08:38 | CM.DPNOTE ---
Faxed clinicals to [facility] Inpt. Rehab per Anaya on 11/11/20 and received fax confirmation. Followed up with Damaris and left a message on her voicemail for availability. Magalys Fonseca CM Asst.
[2020-11-11] MEDS: INSULIN ASPART 100 UNIT/ML INSULN PEN SUBCUT (09:22)
[2020-11-11] MEDS: METOPROLOL IR 25 MG TABLET PO ×2 (09:24→20:51)
[2020-11-11] MEDS: DOCUSATE 100 MG CAPSULE PO ×2 (09:24→20:51)
[2020-11-11] MEDS: CLOPIDOGREL 75 MG TABLET PO (09:24)
[2020-11-11] MEDS: ASPIRIN EC 81 MG TABLET PO (09:24)
[2020-11-11] MEDS: SODIUM CHLORIDE 0.9% FLUSH 10 ML IV ×2 (09:25→20:49)
--- NOTE | 2020-11-11 10:11 | OT.IP.TRT ---
Current Diagnoses Cerebral infarction, unspecified (11/10/20) Occupational Therapy Treatment Note M2 OT-IP Current Condition Start: 11/10/20 19:56 Freq: Status: Active Protocol: Document 11/10/20 19:56 [facility] (Rec: 11/10/20 20:16 [facility] [id number]) Occupational Therapy Current Condition Current Condition Evaluation Date 11/10/20 Treatment Diagnosis CVA, decreased functional cognition Diagnosis Onset Date 11/09/20 M3 OT- IP Subjective and Pain Start: 11/10/20 19:56 Freq: Status: Active Protocol: Document 11/11/20 17:13 [facility] (Rec: 11/11/20 17:27 [facility] [id number]) OT- Subjective Occupational Therapy Visit Type Type Treatment Note Visit Start Time 08:46 Visit Stop Time 10:11 Total Visit Minutes 85 Occupational Therapy Visit Comments Patient Comments Pt agreed to redo cognitive assessment and also wanting to shower. Patient/Caregiver Goals To go to acute rehab. OT Pain Assessment Pain When Pain Assessed At Rest Pain Present Pain Present Denied Pain M4 OT- IP ADL's Start: 11/10/20 19:56 Freq: Status: Active Protocol: Document 11/11/20 17:13 [facility] (Rec: 11/11/20 17:27 [facility] [id number]) OT [id number] Comments OT Self-Feeding Comments Not at meal time. OT ADL-Grooming General Evaluation Grooming Ability Standby Assistance OT ADL-Oral Care General Eval Oral Care Ability Standby Assistance OT ADL-Dressing General Eval Lower Body Dressing Ability Moderate Assistance Comments OT Dressing Comments Pt needing assist to get socks over his feet today. OT ADL-Toileting General Evaluation Toileting Ability Standby Assistance OT ADL-Bathing Bathing Type Bathing Type Shower General Evaluation Bathing Ability Minimal Assistance Areas Needing Assistance Wash/Dry Back Comments OT Bathing Comments Pt having to sit for the shower versus being able to stand as he did before due to his decreased activity tolerance and balance. M6 OT- IP Functional Cognition Start: 11/10/20 19:56 Freq: Status: Active Protocol: Document 11/11/20 17:13 [facility] (Rec: 11/11/20 17:27 [facility] [id number]) Cognitive Factors Limiting Selfcare Function Cognitive Ability Level of Alertness Alert Patient Orientation Name,Place Attention Span Ability Capable of Focused Attention, Capable of Sustained Attention Ability to Follow Commands Able to Follow One Step Commands Memory Description Short Term Impaired Problem Solving Ability Unable to Identify Errors, Needs Assist to Identify Solutions Executive Function Ability Unable to Remember Details Cognitive Comments Cognitive Assessment Comments Pt scored much better today with [place] Making Part B and able to complete the assessment in 246 seconds with MINvc however still implies severe deficits for for task switching, speed of processing , mental flexibility, executive function, and visual attention. Pt initially needing assist to help figure out how to control the water temperature correctly. M7 OT- IP Mobility and Balance Start: 11/10/20 19:56 Freq: Status: Active Protocol: Document 11/11/20 17:13 [facility] (Rec: 11/11/20 17:27 [facility] [id number]) OT- Bed Mobility Assessment Supine to Sit Supine to Sit Assist Standby Assistance Sit to Supine Sit to Supine Assist Standby Assistance OT-Transfer Assessment Sit to and From Stand Sit to and from Stand Standby Assistance Transfers Transfer Ability Standby Assistance,Contact Guard Assistance Technique Transfer Destination Bed,Toilet Transfer Technique Stand Step Pivot Devices Transfer Assistive Devices None,Gait Belt Comments Mobility Comments Pt more steady on his feet for level surfaces today, however still needing cues to keep his feet apart. 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 M9 OT- IP Assessment and Plan Start: 11/10/20 19:56 Freq: Status: Active Protocol: Document 11/11/20 17:13 [facility] (Rec: 11/11/20 17:27 [facility] [id number]) OT Summary Assessment and Plan Potential Rehabilitation Potential Good Analytic Complexity at Evaluation Low Summary OT Impairments Balance,Coordination,Sensation ,Functional Cognition, Functional Mobility,Grooming, Dressing,Toileting,Bathing, Toilet Transfers,Shower Transfers,Activity Tolerance Progress Towards Goals Progressing Toward Goals Assessment Summary Pt still decreased for higher cognitive function and short term memory needs. Pt would benefit from acute rehab to work on increasing safety of dynamic balance and functional cognition to be able to move in various directions of squatting, kneeling, crouching etc.. so able to switch out toilets, climb a ladder, switch out electrical socket and be able to install a grab bar as pt was able to do prior to his CVA's. Pt is very motivated and determined to be able to return to his prior level of function. Goals Self-Feeding Goal Independent Grooming Goal Independent Dressing Goal Independent Toileting Goal Independent Bathing Goal Independent Toilet Transfer Goal Independent Shower Transfer Goal Independent Days to Meet Goals 14 Frequency of Treatment Frequency Of Treatment Once a Day Treatment Plan OT Treatment Plan ADL Training,Functional Cognition Training,Functional Mobility,Patient/Family Education,Discharge Planning Other Treatment Recommendations and Next redo SLUMS Treatment Focus Discharge Recommendations OT Discharge Recommendations Acute Rehab Transportation Needs at Discharge Private Vehicle
--- NOTE | 2020-11-11 10:30 | CM.DPNOTE ---
Faxed clinicals to [facility] on 11/11/20 for inpt. rehab per Anaya. Fax confirmation received. Magalys Fonseca CM Asst.
--- NOTE | 2020-11-11 11:09 | CM.DPC ---
Addendum entered by April Painter R.N. 11/11/20 15:57: Patient was denied [facility] authorization for inpatient acute rehab, but will authorize [facility]. [facility] can accept tomorrow, and patient and are ok with plan. PASSR completed, will need new COVID Original Note: DCP Cont: P.T. is recommending acute inpatient rehab for patient. Had Magalys fax [facility] in [facility], notes, including therapy notes. Spoke to Damaris at [facility]. She is reviewing, and stated that they do have beds available. Patient is [facility], and would need to get authorization. Contacted Sera at [facility]. She stated that she would review. Let her know that patient is ready for discharge as well.. Faxed Sera over P.T, Speech, as well as O.T. notes. P: DCP to continue to follow. Will update Damaris at [facility]. April Painter RN/Cloth Layer
--- NOTE | 2020-11-11 11:33 | PT.IPTN ---
Current Diagnoses Cerebral infarction, unspecified (11/10/20) Physical Therapy Treatment Note M2 PT-IP Current Condition Start: 11/10/20 17:51 Freq: NEEDED Status: Active Protocol: Document 11/10/20 16:50 AB (Rec: 11/10/20 18:19 AB [id number]) Physical Therapy Current Condition Current Condition Evaluation Date 11/10/20 Treatment Diagnosis CVA; difficulty in walking Onset Date 11/09/20 Precautions Other Precautions falls M3 PT-IP Subjective Start: 11/10/20 17:51 Freq: NEEDED Status: Active Protocol: Document 11/11/20 11:14 [facility] (Rec: 11/11/20 13:26 [facility] [id number]) Subjective Physical Therapy Visit Type Type Treatment Note Visit Start Time 11:14 Visit Stop Time 11:33 Total Visit Minutes 19 Number of SEO EXECUTIVE Visits 1 Physical Therapy Visit Comments Patient Comments pt is agreeable to do PT Therapy Pain Assessment Pain Present Pain Present Denied Pain M4 PT-IP Mobility and Gait Start: 11/10/20 17:51 Freq: NEEDED Status: Active Protocol: Document 11/11/20 11:14 [facility] (Rec: 11/11/20 13:26 [facility] [id number]) PT-Bed Mobility Assessment Supine to Sit Supine to Sit Standby Assistance Sit to Supine Sit to Supine Standby Assistance PT-Transfer Assessment Sit to and From Stand Sit to and from Stand Standby Assistance,Contact Guard Assistance,1 Person Assistance,Use of Upper Extremities Equipment Transfer Assistive Device None,Gait Belt Orthotic/Prosthetic Devices or Brace: No Comments Mobility Comments Pt able to perform supine-sit SBA then stood from bed CGA. Pt ambulated with cane in right hand with education on reciprocal gait. Pt had difficulty with coordinating sequencing. Pt then ambulated CGA w/o AD ~120ft, with head turns pt had increased lateral sway but no LOB. Pt returned to supine SBA. Left pt in bed with all needs within reach. Gait Assessment Gait Gait Assistance Required: Contact Guard Assist,1 Person Assist Distance (Feet) 150 Able to Maintain Weight Bearing Status Yes During Gait Assistive Devices Assistive Device None,Gait Belt Orthotic/Prosthetic Devices or Brace: No Gait Deviations General Gait Pattern Ataxic,Decreased Stride Length ,Decreased Feet Clearance, Flexed Trunk,Wide Based Gait Factors Limiting Gait Function Factors Limiting Gait Function Poor Balance,Poor Safety Awareness Comments Gait Comments pls refer to mobility section for details Functional Assessments Other Functional Tests Performed standing Balance: WBS/NBS EO/ EC M5 PT-IP Objective Assessments Start: 11/10/20 17:51 Freq: NEEDED Status: Active Protocol: Document 11/10/20 16:50 AB (Rec: 11/10/20 18:19 AB [id number]) Orientation Orientation/Cognition Level of Alertness Alert Orientation Name,Place,Situation Language Function Ability Hard of Hearing Safety Awareness Decreased Safety Awareness Gross Range of Motion Lower Extremity ROM Assessment Within Functional Limits Strength Lower Extremity Strength Hip 4-/5 Knee 4-/5 Sensation Assessment Sensation Gross Sensation WNL Muscle Tone Muscle Tone WNL Yes M6 PT-IP Treatment Start: 11/10/20 17:51 Freq: NEEDED Status: Active Protocol: Document 11/10/20 16:50 [facility] (Rec: 11/10/20 18:19 AB [id number]) Physical Therapy Treatment Education Education Provided Safety M7 PT-IP Assessment and Plan Start: 11/10/20 17:51 Freq: NEEDED Status: Active Protocol: Document 11/11/20 11:14 [facility] (Rec: 11/11/20 13:26 [facility] [id number]) PT Summary Assessment and Plan Potential Rehabilitation Potential Good Status of Condition at Evaluation Evolving Summary Impairments Pain,ROM,Strength,Balance, Coordination,Cognition,Bed Mobility,Transfers,Gait, Activity Tolerance Progress Towards Goals Progressing Toward Goals Assessment Summary Pt improving with sit<>stand and gait w/o AD. Pt able to ambulate w/o AD CGA with improved activity tolerance. Goals Bed Mobility Goal Standby Assistance Transfer Goal Standby Assistance,Cane,Front Wheeled Walker Gait Goal Standby Assistance,Cane,Front Wheel Walker Gait Distance 200 Other Goals improve ambulation without AD 250 ft SBA up/down 5 steps L rail ascending SBA Days to Meet Goals 5 Frequency of Treatment Frequency Of Treatment Once a Day Treatment Plan Physical Therapy Treatment Plan Bed Mobility Training,Transfer Training,Gait Training, Therapeutic Exercise,Balance Retraining,Discharge Planning, Neuromuscular Re-ed, Coordination Retraining Other Recommendations and Next Treatment continue ambulation training Focus with SPC/no AD. Precautions Other Precautions falls Recommendations To Nursing Amount of Assist Needed 1 Person Assist Discharge Recommendations PT Discharge Recommendations Acute Rehab Equipment Needed for Home Before FWW if pt goes home and is not Discharge safe with SPC/without AD Transportation Needs at Discharge Private Vehicle
--- NOTE | 2020-11-11 15:57 | PM.PN.1 ---
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 Denied acute rehab by his insurance but authorized for SNF discharge tomorrow. He denies complaints at this time, states he feels slightly stronger today. Denies palpitations, chest pain, shortness of breath, fever, chills, numbness, weakness, slurred speech. Exam Vital Signs (past 8 hours): - 11/11/20 08:00 11/11/20 08:30 11/11/20 12:00 Temperature 97.4 F L 97.9 F Pulse Rate 53 L 56 L Respiratory Rate 16 17 Blood Pressure 131/73 119/70 Pulse Oximetry 97 97 97 11/11/20 14:00 Temperature Pulse Rate Respiratory Rate Blood Pressure Pulse Oximetry 97 Oxygen Delivery Method Room Air Oxygen Flow Rate 0 Narrative Exam Narrative: General: Patient is a well-developed, well-nourished in no distress at this time. HEENT: Normocephalic, atraumatic, extraocular muscles intact, oral pharynx is clear and mucous membranes are moist. Neck is supple and symmetric, trachea is midline, no adenopathy, no thyroid enlargement, nontender, no masses palpated. Negative for JVD Chest: Normal AP diameter and contour without kyphoscoliosis, no nasal flaring, retractions, or tachypneic labored Lungs: Auscultation of all lung salcido are clear without adventitious sounds, wheezes, rhonchi, or rales. Cardio: S1 & S2 with regular rate and rhythm without murmur, rubs, or gallops, no carotid bruit, no cardiac pulsations present. Abdomen: Soft nontender, negative for organomegaly, or masses. Bowel sounds are present in all 4 quadrants without guarding or rebound, no CVA tenderness. Musculoskeletal: Muscle strength and tone are equal within normal limits, no deformity, crepitus, effusions, cyanosis, clubbing or edema present. Full range of motion intact radial and pedal pulses are normal. Skin: Warm dry and intact without rashes, ulcerations or petechiae. Neuro: Alert and orientated x3, strength is +5/5 in all extremities, sensation to touch intact, no gross deficits noted of cranial nerves. L finger to nose testing slightly worse compared to the R, heel to hughes also not as smooth. Psych: Patient has a well-kept appearance, appropriate affect, mental status attitude thought context and judgment are appropriate for age. Objective Labs Result Diagrams: 11/10/20 04:30 11/11/20 04:35 Labs: Laboratory Results - last 24 hr 11/11/20 04:35 Sodium 135 L Potassium 4.5 Chloride 104 Carbon Dioxide 28 BUN 23 H Creatinine 1.08 Estimated GFR > 60.0 BUN/Creatinine Ratio 21.3 Glucose 108 Calcium 9.2 Magnesium 1.8 [facility] Medical History Allergies Aspirin long-term use Balance problem BPH (benign prostatic hyperplasia) BPH loc w urin obs/LUTS BPH w urinary obs/LUTS Chest pain Chronic cough Coronary artery disease Diverticular disease Dyspnea on exertion Erectile dysfunction Fall Glucose found in urine on examination Hearing loss Heart attack High prostate specific antigen (PSA) History of elevated PSA Hyperlipidemia associated with type 2 diabetes mellitus Hypertension Insomnia Muscle spasm of back Obesity (BMI 30.0-34.9) 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 Rib pain on right side Shoulder pain Strain of muscle and tendon of back wall of thorax, initial encounter Tachycardia, paroxysmal Type 2 diabetes mellitus Unstable angina pectoris Urinary dribbling Vision disorder Surgical History Anesthesia H/O heart artery stent S/P PTCA (percutaneous transluminal coronary angioplasty) Status post anal fissurectomy Family History Father Cancer Brother Diabetes mellitus Brother Diabetes mellitus Son Diabetes mellitus Stroke Social History marital status: household members: spouse and children Smoking Status: Never smoker alcohol intake: never Assessment & Plan Assessment & Plan narrative: Patient is a 85-year-old male admitted with a subacute CVA, 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 1. Subacute CVA, present on admission -Patient's MRI positive for multiple subacute infarcts and subsequent addendum of CT angiogram. -Highly suspected embolic source. No evidence of afib during stay, but does have this previously diagnosed. -PT recommended acute rehab, denied by [place], planned for SNF tomorrow in [place] for continued rehabilitation after CVA. Residual deficits include slight ataxia and decreased coordination. - Echocardiogram did not reveal any source of embolism, normal EF. - He is already on aspirin and Plavix for known CAD, and will avoid triple therapy at this time given multitude of infarcts and possible risk of hemorrhagic conversion. 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 - patient already on high intensity statin therapy. 2.Hypertension, chronic, not present on admission -continue metoprolol 25 mg b.i.d. 3. Type 2 diabetes, non-insulin dependent, chronic, well controlled not present on admission -A1c of 6.5% indicates adequate control. Continue sliding scale insulin during his hosptial stay. 4. Hyperlipidemia, chronic, -continue patient's Atrovastatin 5. BPH, chronic, controlled, not present on admission -continue patient's alfuzosin 6. Paroxysmal atrial fibrillation - as noted above, recommend discussion with cardiology regarding recommended course of further stroke prevention. DVT: asa/plavix and SCDs Code: Full, surrogate decision maker is the patient's spouse. Dispo: anticipate discharge tomorrow to SNF. Quality VTE Deep Vein Thrombosis/Pulmonary Embolism Present on Admission: No
[2020-11-11] MEDS: ATORVASTATIN 20 MG TABLET 80 MG PO (20:51)
[2020-11-12] VITALS: BP 117/57; PULSE 67; RESP 16; TEMP 36.7; O2SAT 95
[2020-11-12 02:00] VITALS: O2SAT 95
[2020-11-12 04:57] VITALS: BP 133/63; PULSE 72; RESP 16; TEMP 36.1; O2SAT 96
[2020-11-12 05:34] LABS: BUN Creatinine Ratio 21.7 (6-22); Blood Urea Nitrogen 20 mg/dL (9-20); Calcium 9.4 mg/dL (8.4-10.2); Carbon Dioxide 28 mmol/L (22-32); Chloride 105 mmol/L (98-107); Estimated Glomerular Filt Rate > 60.0 mL/min (>60); Glucose 117 mg/dL (80-110); HEMOLYSIS < 15 (0-50); Magnesium 1.9 mg/dL (1.6-2.3); Potassium 4.9 mmol/L (3.4-5.1); Sodium 137 mmol/L (137-145)
[2020-11-12 06:00] VITALS: O2SAT 96
--- NOTE | 2020-11-12 06:30 | PC.NURSE ---
Pt. is a&o x4, no deficit noted. VSS, up to the bathroom independently to void without issues. Denies pain. Plan is to dc today for rehab.
[2020-11-12 08:00] VITALS: BP 122/69; PULSE 68; RESP 17; TEMP 36.3; O2SAT 97
[2020-11-12] MEDS: ASPIRIN EC 81 MG TABLET PO (08:46)
[2020-11-12] MEDS: METOPROLOL IR 25 MG TABLET PO (08:46)
[2020-11-12] MEDS: DOCUSATE 100 MG CAPSULE PO (08:46)
[2020-11-12] MEDS: CLOPIDOGREL 75 MG TABLET PO (08:46)
[2020-11-12] MEDS: SODIUM CHLORIDE 0.9% FLUSH 10 ML IV (08:50)
--- NOTE | 2020-11-12 09:22 | PM.DS.1 ---
History of Present Illness History of Present Illness Chief complaint: sent for TIA Discharge Providers Provider Date of admission: 11/10/20 09:40 Primary care physician: JENNA Alonso Consults: 11/10/20 00:13 Consult to Physical Therapy Evaluate & Treat Comment: TIA Physician Instructions: Evaluate and Treat Consult to Speech Therapy Evaluate & Treat Comment: TIA Physician Instructions: Evaluate and treat 11/10/20 10:17 Consult to Occupational Therapy Evaluate & Treat Comment: Physician Instructions: Evaluate and treat Discharge provider: Tomas Petit MD Exam Vital Signs (past 8 hours): - 11/12/20 02:00 11/12/20 04:57 11/12/20 06:00 Temperature 97.0 F L Pulse Rate 72 Respiratory Rate 16 Blood Pressure 133/63 Pulse Oximetry 95 96 96 11/12/20 08:00 Temperature 97.4 F L Pulse Rate 68 Respiratory Rate 17 Blood Pressure 122/69 Pulse Oximetry 97 Oxygen Delivery Method Room Air Oxygen Flow Rate 0 Objective Labs Result Diagrams: 11/10/20 04:30 11/12/20 04:55 Labs: Laboratory Results - last 24 hr 11/12/20 04:55 Sodium 137 Potassium 4.9 Chloride 105 Carbon Dioxide 28 BUN 20 Creatinine 0.92 Estimated GFR > 60.0 BUN/Creatinine Ratio 21.7 Glucose 117 H Calcium 9.4 Magnesium 1.9 PFSH Medical History Allergies Aspirin long-term use Balance problem BPH (benign prostatic hyperplasia) BPH loc w urin obs/LUTS BPH w urinary obs/LUTS Chest pain Chronic cough Coronary artery disease Diverticular disease Dyspnea on exertion Erectile dysfunction Fall Glucose found in urine on examination Hearing loss Heart attack High prostate specific antigen (PSA) History of elevated PSA Hyperlipidemia associated with type 2 diabetes mellitus Hypertension Insomnia Muscle spasm of back Obesity (BMI 30.0-34.9) Other senior care (current) drug therapy Rib pain on right side Shoulder pain Strain of muscle and tendon of back wall of thorax, initial encounter Tachycardia, paroxysmal Type 2 diabetes mellitus Unstable angina pectoris Urinary dribbling Vision disorder Surgical History Anesthesia H/O heart artery stent S/P PTCA (percutaneous transluminal coronary angioplasty) Status post anal fissurectomy Family History Father Cancer Brother Diabetes mellitus Brother Diabetes mellitus Son Diabetes mellitus Stroke Social History marital status: household members: spouse and children Smoking Status: Never smoker alcohol intake: never Discharge Assessment & Plan Assessment and Plan Assessment: 1. Subacute CVA, present on admission -Patient's MRI positive for multiple subacute infarcts and subsequent addendum of CT angiogram. -Highly suspected embolic source. No evidence of afib during stay, but does have this previously diagnosed. -PT recommended acute rehab, denied by [facility], planned for SNF tomorrow in [place] for continued rehabilitation after CVA. Residual deficits include slight ataxia and decreased coordination. - Echocardiogram did not reveal any source of embolism, normal EF. - He is already on aspirin and Plavix for known CAD, and will avoid triple therapy at this time given multitude of infarcts and possible risk of hemorrhagic conversion. 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 - patient already on high intensity statin therapy. 2.Hypertension, chronic, not present on admission -continue metoprolol 25 mg b.i.d. 3. Type 2 diabetes, non-insulin dependent, chronic, well controlled not present on admission -A1c of 6.5% indicates adequate control. Continue sliding scale insulin during his hosptial stay. 4. Hyperlipidemia, chronic, -continue patient's Atrovastatin 5. BPH, chronic, controlled, not present on admission -continue patient's alfuzosin 6. Paroxysmal atrial fibrillation - as noted above, recommend discussion with cardiology regarding recommended course of further stroke prevention. Discharge Plan Discharge Plan Other facility: facility in [place] Discharge orders & Medications Discharge Orders: Discharge (Order); Ordered 11/12/20 Ordered By: Tomas Petit Prescriptions: New docusate sodium [DOK] 100 mg Capsule 100 mg PO BID Qty: 30 RF: 0 atorvastatin [Lipitor] 20 mg Tablet 80 mg PO BEDTIME Qty: 60 RF: 0 Continued clopidogrel [Plavix] 75 mg tablet 75 mg PO DAILY Qty: 14 RF: 0 Jardiance 10 mg tablet 10 mg PO QAM RF: 0 fexofenadine [Wilma Allergy] 180 mg tablet 180 mg PO DAILY Qty: 90 RF: 0 fluticasone propionate [Allergy Relief (fluticasone)] 50 mcg/actuation spray,suspension 1 spray NASAL DAILY RF: 0 calcium carbonate-vitamin D3 [Oyster Shell Calcium-Vit D3] 250-125 mg-unit tablet 1 tab PO DAILY RF: 0 vitamin b12 2,500 mcg See Rx Instructions .ROUTE .COMPLEX RF: 0 metoprolol tartrate 25 mg tablet 25 mg PO BID RF: 0 Adult 50 Plus Probiotic 4 billion cell capsule 4,000 mmu cells PO DAILY RF: 0 Adult 50 Plus Probiotic 4 billion cell capsule 4,000 mmu cells PO DAILY Qty: 90 RF: 3 B-complex with vitamin C [Super B Complex-Vitamin C] Tablet 1 tab PO DAILY RF: 0 cholecalciferol (vitamin D3) 1,000 unit capsule 1,000 unit PO DAILY RF: 0 aspirin 81 mg tablet,delayed release (DR/EC) 81 mg PO DAILY RF: 0 Hold Instructions: while on ketorolac metformin 1,000 mg tablet 1,000 mg PO BID RF: 0 baclofen 10 mg tablet 10 mg PO BID PRN (Reason: back spasms) Qty: 30 RF: 1 magnesium 500 mg PO DAILY RF: 0 alfuzosin 10 mg tablet extended release 24 hr 10 mg PO DAILY Qty: 90 RF: 3 Discontinued atorvastatin 40 mg tablet 40 mg PO QPM RF: 0 nitroglycerin 0.4 mg tablet, sublingual 0.4 mg SL Q5M PRN (Reason: Chest Pain) RF: 0 Follow up/Referrals: Yarelis Sidhu ARNP [Primary Care Provider] - Diet/Activity/Treatments Diet: Diet as Tolerated and Carb-consistent/Diabetic Food texture: Regular [facility] Reason for rehabilitation: Therapy following stroke Rehab type: Physical therapy and Occupational therapy Discharge Data Primary Care Provider: Yarelis Sidhu VTE Deep Vein Thrombosis/Pulmonary Embolism Present on Admission: No
--- NOTE | 2020-11-12 09:52 | PC.NURSE ---
Patient is a&ox3, he denies pain. Patient able to lift up his arms and legs without any drift. Smile is symmetrical and he states that his vision is fine. BS cta, high 90s RA. Patient will go to care center for rehab. He has been discharged, awaiting to see if he will go to care center today or tomorrow. Appetite good and patient denies nausea.
--- NOTE | 2020-11-12 10:53 | CM.DPNOTE ---
Addendum entered by Magalys Fonseca 11/12/20 11:38: Also faxed order, face to face in addition. Magalys Fonseca CM Asst. Original Note: Faxed clinicals to [facility] and received fax confirmation. Magalys Fonseca CM Asst.
--- NOTE | 2020-11-12 11:04 | CM.DPC ---
dcp: continued: case received and discussed in Team Rounds. Noted plan for inpt/rehab: denied by [place]. [facility] plan, approved by [place]. Dr. Masters confirmed that pt was stable for d/c today. Care team members in rounds wondered why pt was not going directly home with OUTPT therapy. Met then with pt and his . Introduced self and role. Pt noted that he did not understand why he must go to snf setting. Stated he had been up independently in the room (RN note from last night confirms same.) Said he has gone from a walker to a cane and at times no device. Stated he very much wished to go home today.' Aspen noted her agreement. Had discussion on Aspen' cell phone/speaker with their daughter Natividad Hopper/[facility] [phone]. She was very supportive of plan for home today. Discussed OUTPT therapy vs home with HH RN/PT/OT and all agreed this would be best, especially as pt and his have just moved into a new home in a senior complex. Agency choice list: discussed. They have used [facility] in past: referral is given to Prisc[facility] who accepts and says pt can be seen within the 24-48 hour time frame. Sarah/[facility] is updated and will release the referral. [facility]ra Viramontes is updated. P: home this afternoon. daughter is here to drive pt and Leidy. Confirmed that address on face sheet is there new home location. Face/Face document was completed. DIMITRIS Dowell faxing all needed materials to [facility].
--- NOTE | 2020-11-12 11:06 | PT.IPTN ---
Current Diagnoses Cerebral infarction, unspecified (11/10/20) Physical Therapy Treatment Note M2 PT-IP Current Condition Start: 11/10/20 17:51 Freq: NEEDED Status: Active Protocol: Document 11/10/20 16:50 AB (Rec: 11/10/20 18:19 AB [id number]) Physical Therapy Current Condition Current Condition Evaluation Date 11/10/20 Treatment Diagnosis CVA; difficulty in walking Onset Date 11/09/20 Precautions Other Precautions falls M3 PT-IP Subjective Start: 11/10/20 17:51 Freq: NEEDED Status: Active Protocol: Document 11/12/20 10:51 CLB (Rec: 11/12/20 11:26 CLB [id number]) Subjective Physical Therapy Visit Type Type Treatment Note Visit Start Time 10:51 Visit Stop Time 11:06 Total Visit Minutes 15 Number of SCHEDULER CONVEYOR Visits 2 Physical Therapy Visit Comments Patient Comments pt is agreeable to do PT Therapy Pain Assessment Pain Present Pain Present Denied Pain M4 PT-IP Mobility and Gait Start: 11/10/20 17:51 Freq: NEEDED Status: Active Protocol: Document 11/12/20 10:51 CLB (Rec: 11/12/20 11:26 CLB [id number]) PT-Transfer Assessment Comments Mobility Comments Pt up in room IND upon arrival with present. Pt walked out of BR and gait belt placed around waist. Pt ambulated in [place] to therapy stairs by main nursing station. Pt climbed three steps x2 with step over step and left rail. Pt then ambulated back to room , gait belt removed and pt ambulated into BR. Informed RN of pts improved stability with ambulation and stair climbing. Gait Assessment Gait Gait Assistance Required: Standby Assistance Distance (Feet) 500 Able to Maintain Weight Bearing Status Yes During Gait Assistive Devices Assistive Device None,Gait Belt Orthotic/Prosthetic Devices or Brace: No Gait Deviations General Gait Pattern Decreased Stride Length, Decreased Feet Clearance Comments Gait Comments Pt requiring SBA w/o AD during ambulation with no LOB with head turns. Stair Climbing Assessment Evaluation Level of Assist On Stairs Standby Assistance Devices Stair Climbing Assistive Devices Left Railing Technique/Endurance Stair Climbing Direction Ascend and Descend Stair Climbing Technique Step Over Step Number of Steps Climbed 3 Stair Climbing Set # Repetitions (reps) 2 M5 PT-IP Objective Assessments Start: 11/10/20 17:51 Freq: NEEDED Status: Active Protocol: Document 11/10/20 16:50 AB (Rec: 11/10/20 18:19 AB [id number]) Orientation Orientation/Cognition Level of Alertness Alert Orientation Name,Place,Situation Language Function Ability Hard of Hearing Safety Awareness Decreased Safety Awareness Gross Range of Motion Lower Extremity ROM Assessment Within Functional Limits Strength Lower Extremity Strength Hip 4-/5 Knee 4-/5 Sensation Assessment Sensation Gross Sensation WNL Muscle Tone Muscle Tone WNL Yes M6 PT-IP Treatment Start: 11/10/20 17:51 Freq: NEEDED Status: Active Protocol: Document 11/10/20 16:50 AB (Rec: 11/10/20 18:19 AB [id number]) Physical Therapy Treatment Education Education Provided Safety M7 PT-IP Assessment and Plan Start: 11/10/20 17:51 Freq: NEEDED Status: Active Protocol: Document 11/12/20 10:51 CLB (Rec: 11/12/20 11:26 CLB [id number]) PT Summary Assessment and Plan Potential Rehabilitation Potential Good Status of Condition at Evaluation Evolving Summary Impairments Pain,ROM,Strength,Balance, Coordination,Cognition,Bed Mobility,Transfers,Gait, Activity Tolerance Progress Towards Goals Progressing Toward Goals Assessment Summary Pt improving with ambulation, pt able to ambulate ~500ft w/o AD SBA and climb stairs SBA. Pt denied acute rehab and will d/c home with assistance . Goals Bed Mobility Goal Standby Assistance Transfer Goal Standby Assistance,Cane,Front Wheeled Walker Gait Goal Standby Assistance,Cane,Front Wheel Walker Gait Distance 200 Other Goals improve ambulation without AD 250 ft SBA up/down 5 steps L rail ascending SBA Days to Meet Goals 5 Frequency of Treatment Frequency Of Treatment Once a Day Treatment Plan Physical Therapy Treatment Plan Bed Mobility Training,Transfer Training,Gait Training, Therapeutic Exercise,Balance Retraining,Discharge Planning, Neuromuscular Re-ed, Coordination Retraining Precautions Other Precautions falls Recommendations To Nursing Amount of Assist Needed 1 Person Assist Discharge Recommendations PT Discharge Recommendations Home with Assistance,Home Health,Acute Rehab Transportation Needs at Discharge Private Vehicle
--- NOTE | 2020-11-12 11:36 | PM.EVENT ---
Event Note Date Patient Seen: 11/12/20 Time Patient Seen: 08:30 Event Note: RE: INSURANCE DENIAL FOR INPATIENT SERVICES This is to explain the rationale for the patient's admission under inpatient. Patient is a 85-year-old male with history of CAD is manifested by NSTEMI s/p PCI/stent, DM2, hyperlipidemia, hypertension, paroxysmal atrial fibrillation who per over the past week he has had multiple episodes of being clumsy. The patient states acknowledges left hand clumsy. He has also had confused. There has been slurring his words. His MRI/MRA brain revealed subacute subcortical and periventricular infarcts demonstrated in the right bernal radiata within the right MCA territory with focal occlusion of the superior M2 segment of the right middle cerebral artery likely secondary to an intraluminal thrombus. As such with the patient having a demonstrated acute to subacute infarcts this would justify inpatient admission for ongoing evaluation and management. I could understand that he now if he did have simply a TIA but is documented above the patient does have documented recent CVA did need acute inpatient treatment. I hope this has been helpful. If any further information or explanation as necessary please do not hesitate to contact me Tomas Petit MD FACP
--- NOTE | 2020-12-04 13:03 | P.DS_ITS ---
History of Present Illness History of Present Illness Chief complaint: sent for TIA Discharge Providers Provider Date of admission: 11/10/20 09:40 Discharge Date: 11/12/20 Primary care physician: JENNA Alonso Consults: 11/10/20 00:13 Consult to Physical Therapy Evaluate & Treat Comment: TIA Physician Instructions: Evaluate and Treat Consult to Speech Therapy Evaluate & Treat Comment: TIA Physician Instructions: Evaluate and treat 11/10/20 10:17 Consult to Occupational Therapy Evaluate & Treat Comment: Physician Instructions: Evaluate and treat 11/12/20 10:48 Consult to Home Health Routine Comment: [facility] ACCEPTS THE REFERRAL Reason For Exam: JESUSITA RN/PT/OT AT DC Discharge provider: Tomas Petit MD Summary Hospital Course Discharge Diagnosis: Subacute CVA, present on admission HTN DM2 HYPERLIPIDEMIA Paroxysmal atrial fibrillation Hospital Course: Patient is a 85-year-old male admitted with a subacute CVA, 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 Denied acute rehab by his insurance but authorized for SNF discharge tomorrow. He denies complaints at this time, states he feels slightly stronger today. Denies palpitations, chest pain, shortness of breath, fever, chills, numbness, weakness, slurred speech. Patient hemodynamically stable clinically improved. Workup completed patient asymptomatic and ready for discharge therefore discharged home. ON DAY OFF DISCHARGE PT: Home with Assistance,Home Health,Acute Rehab Exam Vital Signs (past 8 hours): Oxygen Delivery Method Room Air Oxygen Flow Rate 0 Narrative Exam Narrative: unchanged from 11/11/[address] scan - head: Radiologist's impression: IMPRESSION: No acute intracranial process. Labs Result Diagrams: 11/10/20 04:30 11/12/20 04:55 [facility] Medical History Allergies Aspirin long-term use Balance problem BPH (benign prostatic hyperplasia) BPH loc w urin obs/LUTS BPH w urinary obs/LUTS Chest pain Chronic cough Coronary artery disease Diverticular disease Dyspnea on exertion Erectile dysfunction Fall Glucose found in urine on examination Hearing loss Heart attack High prostate specific antigen (PSA) History of elevated PSA Hyperlipidemia associated with type 2 diabetes mellitus Hypertension Insomnia Muscle spasm of back Obesity (BMI 30.0-34.9) Other senior living (current) drug therapy Rib pain on right side Shoulder pain Strain of muscle and tendon of back wall of thorax, initial encounter Tachycardia, paroxysmal Type 2 diabetes mellitus Unstable angina pectoris Urinary dribbling Vision disorder Surgical History Anesthesia H/O heart artery stent S/P PTCA (percutaneous transluminal coronary angioplasty) Status post anal fissurectomy Family History Father Cancer Brother Diabetes mellitus Brother Diabetes mellitus Son Diabetes mellitus Stroke Social History marital status: household members: spouse and children Smoking Status: Never smoker alcohol intake: never Discharge Assessment & Plan Assessment and Plan Assessment: 1. Subacute CVA, present on admission -Patient's MRI positive for multiple subacute infarcts and subsequent addendum of CT angiogram. -Highly suspected embolic source. No evidence of afib during stay, but does have this previously diagnosed. -PT recommended acute rehab, denied by [facility], planned discharge w/[facility] RN/PT - Echocardiogram did not reveal any source of embolism, normal EF. - He is already on aspirin and Plavix for known CAD, and will avoid triple therapy at this time given multitude of infarcts and possible risk of hemorrhagic conversion. 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 - patient already on high intensity statin therapy. 2.Hypertension, chronic, not present on admission -continue metoprolol 25 mg b.i.d. 3. Type 2 diabetes, non-insulin dependent, chronic, well controlled not present on admission -A1c of 6.5% indicates adequate control. Continue sliding scale insulin duri ng his hosptial stay. 4. Hyperlipidemia, chronic, -continue patient's Atrovastatin 5. BPH, chronic, controlled, not present on admission -continue patient's alfuzosin 6. Paroxysmal atrial fibrillation - as noted above, recommend discussion with cardiology regarding recommended course of further stroke prevention. Discharge Plan Discharge Plan Patient Disposition: Home Health Service Discharge orders & Medications Prescriptions: Continued clopidogrel [Plavix] 75 mg tablet 75 mg PO DAILY Qty: 14 RF: 0 fexofenadine [Wilma Allergy] 180 mg tablet 180 mg PO DAILY Qty: 90 RF: 0 fluticasone propionate [Allergy Relief (fluticasone)] 50 mcg/actuation spray,suspension 1 spray NASAL DAILY RF: 0 vitamin b12 2,500 mcg See Rx Instructions .ROUTE .COMPLEX RF: 0 aspirin 81 mg tablet,delayed release (DR/EC) 81 mg PO DAILY RF: 0 Hold Instructions: while on ketorolac metformin 1,000 mg tablet 1,000 mg PO BID RF: 0 baclofen 10 mg tablet 10 mg PO BID PRN (Reason: back spasms) Qty: 30 RF: 1 magnesium 500 mg PO DAILY RF: 0 alfuzosin 10 mg tablet extended release 24 hr 10 mg PO DAILY Qty: 90 RF: 3 Discontinued atorvastatin 40 mg tablet 40 mg PO QPM RF: 0 nitroglycerin 0.4 mg tablet, sublingual 0.4 mg SL Q5M PRN (Reason: Chest Pain) RF: 0 No Action metoprolol tartrate 25 mg tablet See Rx Instructions PO .COMPLEX RF: 0 Jardiance 25 mg tablet 12.5 mg PO DAILY RF: 0 atorvastatin 80 mg tablet 80 mg PO BEDTIME Qty: 90 RF: 3 Follow up/Referrals: Yarelis Sidhu ARNP [Primary Care Provider] - Diet/Activity/Treatments Diet: Diet as Tolerated and Carb-consistent/Diabetic Visit Report/Discharge Packet Instructions: Transient Ischemic Attack, DI for Transient Ischemic Attack, Atorvastatin, Stool Softeners Discharge Data Primary Care Provider: Yarelis Sidhu Quality VTE Deep Vein Thrombosis/Pulmonary Embolism Present on Admission: No
== END 2020-11-12 12:12 | disposition home health service (06) | DRG 66 ==
LOC: ED 23:22 → AC 23:24 → ICU 11-10 01:02
PROVIDERS: Emergency Medicine; Admitting Provider Internal Medicine; Emergency Provider Emergency Medicine; PCP Nurse Practitioner; Referring Provider Emergency Medicine; Visit Provider Nurse Practitioner Family
DX: I63.441 Cerebral infarction due to embolism of right cerebellar artery (principal); R27.8 Other lack of coordination; I48.0 Paroxysmal atrial fibrillation; R41.0 Disorientation, unspecified; R47.81 Slurred speech; I10 Essential (primary) hypertension; E11.9 Type 2 diabetes mellitus without complications; Z79.84 Long term (current) use of oral hypoglycemic drugs; E78.5 Hyperlipidemia, unspecified; N40.0 Benign prostatic hyperplasia without lower urinary tract symptoms; Z20.822 Contact with and (suspected) exposure to COVID-19
CPT/HCPCS: 36415; 70450; 70496; 70498; 70548; 70553; 80048; 80053; 80061; 80305; 81001; 82550; 82553; 82962; 83036; 83735; 84484; 85025; 85610; 85651; 85730; 86140; 87635; 87797; 92523; 93005; 93306; 97116; 97162; 97165; 97530; 97535; 99284; C9803; G0378; A9579